=== PATIENT | male | born 1985 | race Hispanic/Latino ===

== ENCOUNTER 2019-02-24 17:05 | Inpatient (IN) | payer OTHER ==
[~2019-02-24] VITALS: Ht 180.3 cm; Wt 84.9 kg
[2019-02-24] MEDS ORDERED: POLYCARBOPHIL PO (17:15)
[2019-02-24] MEDS ORDERED: OMEP-218 PO (17:15)
[2019-02-24] MEDS ORDERED: SULF1TAB30 PO (17:15)
[2019-02-24] MEDS ORDERED: ONDANSETRON 4MG/2ML VIAL (J2405) IV ONE (17:30)
[2019-02-24] MEDS ORDERED: NS 1,000 ML IV ONE (17:30)
[2019-02-24] MEDS ORDERED: ACETAMINOPHEN 325 MG TAB PO ONE (17:30)
[2019-02-24] MEDS ORDERED: DICYCLOMINE 10 MG CAP PO ONE (17:30)
[2019-02-24 19:24] LABS: BASO % 0.3 % (0.0-1.0); EOS # 0.3 10^3/uL (0.0-0.50); EOS % 5.1 % (0.0-3.0); HEMATOCRIT 34.4 % (42.0-52.0); HEMOGLOBIN 10.9 g/dl (13.5-17.5); LYMPH # 0.8 10^3/uL (1.5-4.5); LYMPH % 13.4 % (24.0-44.0); MEAN CORPUSCULAR HEMOGLOBIN 29.9 pg (27.0-33.0); MEAN CORPUSCULAR HGB CONC 31.7 g/dl (32.0-36.5); MEAN CORPUSCULAR VOLUME 94.2 fl (80.0-96.0); MONO % 16.2 % (0.0-5.0); NEUTROPHILS # 3.9 10^3/uL (1.8-7.7); NEUTROPHILS % 64.5 % (36.0-66.0); PLATELET COUNT, AUTOMATED 325 10^3/uL (150-450); RED BLOOD COUNT 3.65 10^6/uL (4.30-6.10); WHITE BLOOD COUNT 6.1 10^3/uL (4.0-10.0)
[2019-02-24 19:39] LABS: INR 1.06; PROTHROMBIN TIME 13.9 SECONDS (12.1-14.4)
[2019-02-24 19:40] LABS: PARTIAL THROMBOPLASTIN TIME 30.8 SECONDS (25.4-37.6)
[2019-02-24 19:43] LABS: ALBUMIN 2.5 GM/DL (3.2-5.2); BILIRUBIN,DIRECT 0.2 MG/DL (0.0-0.2); BILIRUBIN,TOTAL 0.4 MG/DL (0.2-1.0); TOTAL PROTEIN 5.3 GM/DL (6.4-8.2)
[2019-02-24] MEDS ORDERED: ISOVUE-370 76% 100ML VIAL (Q9967) As Ordered ONE (19:56)
--- NOTE | 2019-02-24 22:02 | REPVR ---
EXAM: CT Abdomen and Pelvis With Contrast EXAM DATE/TIME: 02/24/2019 8:26 PM CLINICAL HISTORY: 33 years old, male; Abdominal pain; Localized; Right; Additional info: Right flank pain, HX crohns, diarrhea/vomiting TECHNIQUE: Imaging protocol: Axial computed tomography images of the abdomen and pelvis with intravenous contrast. Coronal and sagittal reformatted images were created and reviewed. Radiation optimization: All CT scans at this facility use at least one of these dose optimization techniques: automated exposure control; mA and/or kV adjustment per patient size (includes targeted exams where dose is matched to clinical indication); or iterative reconstruction. Contrast material: ISOVUE 370; Contrast volume: 100 ml; Contrast route: IV; COMPARISON: No relevant prior studies available. FINDINGS: Lungs: Mild dependent atelectatic change at the lung bases. ABDOMEN: Liver: Diffuse hepatic steatosis. Gallbladder and bile ducts: Status post cholecystectomy. No biliary ductal dilatation. Pancreas: Unremarkable. Spleen: Unremarkable. Adrenals: Unremarkable. Kidneys and ureters: No mass. No radiodense calculi. No hydronephrosis. Stomach and bowel: Moderately long segment of distal ileal wall thickening with associated mural and mesenteric edema. Multiple moderately dilated, somewhat thickened loops of small bowel with associated air-fluid levels just proximal to the inflamed segment of distal ileum. Appendix: Normal. PELVIS: Bladder: Unremarkable. Reproductive: Unremarkable. ABDOMEN and PELVIS: Intraperitoneal space: Approximately 2.3 x 1.9 cm loculated air fluid collection with surrounding inflammatory change in the left mid abdominal mesentery, adjacent to the inflamed segment of distal ileum, compatible with abscess versus localized, walled off perforation. No haily free intraperitoneal air. Bones/joints: No acute osseous abnormality. Minimal degenerative change. Soft tissues: Unremarkable. Vasculature: Unremarkable. No aneurysm. Lymph nodes: Mild mesenteric lymphadenopathy, likely reactive. IMPRESSION: 1. Findings compatible with partial versus early small bowel obstruction, secondary to underlying enteritis, as described above. Query Crohn's exacerbation. 2. Approximately 2.3 x 1.9 cm loculated air fluid collection with surrounding inflammatory change in the left mid abdominal mesentery, adjacent to the inflamed segment of distal ileum, compatible with abscess versus localized, walled off perforation. 3. Mild mesenteric lymphadenopathy, likely reactive. 4. Additional findings, as above. Electronically signed by: Tre Chairez On 02/24/2019 22:01:38 PM
[2019-02-24] MEDS ORDERED: FIBE625T PO (23:28)
[2019-02-24] MEDS ORDERED: OMEP20CA3 PO (23:28)
[2019-02-24] MEDS ORDERED: SULF500T2 PO (23:28)
[2019-02-24] MEDS ORDERED: metroNIDAZOLE 500 MG in APPROPRIATE DILUENT 1 EA IV ONE (23:45)
[2019-02-24] MEDS ORDERED: CIPROFLOXACIN 400 MG in APPROPRIATE DILUENT 1 EA IV ONE (23:45)
[2019-02-24] MEDS: NS 1,000 ML IV SCH (23:50)
[2019-02-25] MEDS: NS 1,000 ML IV SCH ×3 (03:38→14:00)
--- NOTE | 2019-02-25 04:23 | HPEPDOC ---
[facility] Medical History & Physical Date of Admission Feb 25, 2019 Date of Service: Feb 25, 2019 History and Physical CHIEF COMPLAINT: abdominal pain, diarrhea HISTORY OF PRESENT ILLNESS: Pt is 33 y/o M with Hx of Crohn's disease diagnosed in 2014 by colonoscopy and biopsy as per pt, presented to ED due to one day history of worsening abdominal pain and bloody diarrhea. Pt had x10 BM since yesterday , occasionally stool mixed with blood, small amount, blood occult was positive in ED. Also nausea and vomiting. Pt reports chronic abdominal pain for months now however yesterday it exacerbated in periumbilical area. Upon my encounter he is AAOx3, not in acute distress, denies any fever or malaise. Pt is not following GI specialist since he is incarcerated. ED Course: VS and Lab WNL. Pt accompanied by police officers. He underwent abdomen/pelvis CT which revealed SBO with intra-abdominal mesentery abscess versus walled off perforation. ED PA consulted general surgery service who recommended admission to medicine for conservative management. Surgery will reevaluate in AM. PAST MEDICAL HISTORY: as above PAST SURGICAL HISTORY: s/p cholecystectomy SOCIAL HISTORY: Pt is incarcerated for two years now, denies smoking ETOH drugs. FAMILY HISTORY: no IBD in family ALLERGIES: Please see below. REVIEW OF SYSTEMS: 10 point negative except as in HPI HOME MEDICATIONS: Please see below. PHYSICAL EXAMINATION: GENERAL APPEARANCE: pt is awake and alert mild distress due to abdominal pain HEENT: no trauma no erythema CARDIOVASCULAR: S1 S2 no murmur LUNGS: clear bilat ABDOMEN: soft periumbilical tenderness, scar of cholecystectomy EXTREMITIES: no edema no tenderness NEUROLOGICAL: intact PSYCHIATRIC: mood affect normal LABORATORY DATA: See below. IMAGING: IMPRESSION: 1. Findings compatible with partial versus early small bowel obstruction, secondary to underlying enteritis, as described above. Query Crohn's exacerbation. 2. Approximately 2.3 x 1.9 cm loculated air fluid collection with surrounding inflammatory change in the left mid abdominal mesentery, adjacent to the inflamed segment of distal ileum, compatible with abscess versus localized, walled off perforation. 3. Mild mesenteric lymphadenopathy, likely reactive. 4. Additional findings, as above. MICROBIOLOGY: Please see below. A/P 1-Intraabdominal Abscess 2-Partial SBO 3-Hx of IBD /Crohn's disease with acute flare up Admit to regular floor IVF NS resuscitation NPO in view of possible intervention General surgery evaluated in the ED, conservative management for now Ciprofloxacin 400 mg BID Flagyl 500mg q8hr supplement electrolytes close clinical monitoring for worsening abdominal pain/lower GI bleeding Consider GI consult in AM Vital Signs Vital Signs Date Time Temp Pulse Resp B/P (MAP) Pulse Ox O2 Delivery O2 Flow Rate FiO2 02/25/19 01:55 98.2 68 18 110/58 (75) 99 02/24/19 23:10 Room Air Laboratory Data Labs 24H Laboratory Tests 2 02/24/19 18:55: Urine Color YELLOW, Urine Appearance CLEAR, Urine pH 5.0, Urine Specific Nora >1.060H, Urine Protein NEGATIVE, Urine Glucose (UA) NEGATIVE, Urine Ketones 1+H, Urine Blood NEGATIVE, Urine Nitrite NEGATIVE, Urine Bilirubin NEGATIVE, Urine Urobilinogen 4.0H, Urine Leukocyte Esterase NEGATIVE, Urine WBC (Auto) 0, Urine RBC (Auto) 3, Urine Hyaline Casts (Auto) 0, Urine Bacteria (Auto) NEGATIVE, Urine Squamous Epithelial Cells 0, Urine Mucus (Auto) SMALL, Urine Sperm (Auto) 02/24/19 18:56: Immature Granulocyte % (Auto) 0.5, White Blood Count 6.1, Red Blood Count 3.65L, Hemoglobin 10.9L, Hematocrit 34.4L, Mean Corpuscular Volume 94.2, Mean Corpuscular Hemoglobin 29.9, Mean Corpuscular Hemoglobin Concent 31.7L, Red Cell Distribution Width 14.2, Platelet Count 325, Neutrophils (%) (Auto) 64.5, Lymphocytes (%) (Auto) 13.4L, Monocytes (%) (Auto) 16.2H, Eosinophils (%) (Auto) 5.1H, Basophils (%) (Auto) 0.3, Neutrophils # (Auto) 3.9, Lymphocytes # (Auto) 0.8L, Monocytes # (Auto) 1.0H, Eosinophils # (Auto) 0.3, Basophils # (Auto) 0.0, Nucleated Red Blood Cells % (auto) 0.0, Prothrombin Time 13.9, Prothromb Time International Ratio 1.06, Activated Partial Thromboplast Time 30.8, Aspartate Amino Transf (AST/SGOT) 23, Alanine Aminotransferase (ALT/SGPT) 29, Alkaline Phosphatase 46, Total Bilirubin 0.4, Direct Bilirubin 0.2, Total Protein 5.3L, Albumin 2.5L, Albumin/Globulin Ratio 0.89L, Lipase 76 02/24/19 19:54: POC Glucose (Misc Panel) 86, POC Sodium (Misc Panel) 138, POC Potassium (Misc Panel) 3.6, POC Chloride (Misc Panel) 106, POC Total CO2 (Misc Panel) 24.0, POC Blood Urea Nitrogen (Misc Panel 10, POC Ionized Calcium (Misc Panel) 4.0L, POC Creatinine (Misc Panel) 0.8, POC Hematocrit (Misc Panel) 31.0L CBC/BMP Laboratory Tests 02/24/19 18:56 Red Blood Count 3.65 L, Mean Corpuscular Volume 94.2, Mean Corpuscular Hemoglobin 29.9, Mean Corpuscular Hemoglobin Concent 31.7 L, Red Cell Distribution Width 14.2, Neutrophils (%) (Auto) 64.5, Lymphocytes (%) (Auto) 13.4 L, Monocytes (%) (Auto) 16.2 H, Eosinophils (%) (Auto) 5.1 H, Basophils (%) (Auto) 0.3, Neutrophils # (Auto) 3.9, Lymphocytes # (Auto) 0.8 L, Monocytes # (Auto) 1.0 H, Eosinophils # (Auto) 0.3, Basophils # (Auto) 0.0 Home Medications Scheduled Calcium Polycarbophil (Fibercon) 625 Mg Tablet, 625 MG PO BID Omeprazole (Omeprazole) 20 Mg Capsule.dr, 20 MG PO BID Sulfasalazine (Sulfasalazine) 500 Mg Tablet, 500 MG PO BID Allergies Coded Allergies: No Known Allergies (Unverified , 02/24/19) A-FIB/CHADSVASC A-FIB History Current/History of A-Fib/PAF?: No CHANDU GREENWOOD MD Feb 25, 2019 04:23
[2019-02-25] MEDS ORDERED: NS 1,000 ML IV SCH (04:25)
[2019-02-25] MEDS: KETOROLAC 30 MG/ML VIAL (J1885) IV PRN ×3 (06:25→21:33)
[2019-02-25] MEDS: FAMOTIDINE IV BAG 20 MG in APPROPRIATE DILUENT 1 EA IV SCH ×2 (07:32→18:43)
[2019-02-25 07:36] LABS: BASO % 0.5 % (0.0-1.0); EOS # 0.2 10^3/uL (0.0-0.50); EOS % 6.1 % (0.0-3.0); HEMATOCRIT 30.5 % (42.0-52.0); HEMOGLOBIN 9.6 g/dl (13.5-17.5); LYMPH # 0.6 10^3/uL (1.5-4.5); LYMPH % 17.1 % (24.0-44.0); MEAN CORPUSCULAR HEMOGLOBIN 29.6 pg (27.0-33.0); MEAN CORPUSCULAR HGB CONC 31.5 g/dl (32.0-36.5); MEAN CORPUSCULAR VOLUME 94.1 fl (80.0-96.0); MONO # 0.6 10^3/uL (0.0-0.8); MONO % 17.1 % (0.0-5.0); NEUTROPHILS # 2.2 10^3/uL (1.8-7.7); NEUTROPHILS % 58.4 % (36.0-66.0); PLATELET COUNT, AUTOMATED 283 10^3/uL (150-450); RED BLOOD COUNT 3.24 10^6/uL (4.30-6.10); WHITE BLOOD COUNT 3.8 10^3/uL (4.0-10.0)
[2019-02-25 07:57] LABS: ALT/SGPT 21 U/L (12-78); BILIRUBIN,TOTAL 0.4 MG/DL (0.2-1.0); BLOOD UREA NITROGEN 9 MG/DL (7-18); CALCIUM LEVEL 7.2 MG/DL (8.5-10.1); CARBON DIOXIDE LEVEL 25 MEQ/L (21-32); CHLORIDE LEVEL 114 MEQ/L (98-107); CREATININE FOR GFR 0.66 MG/DL (0.70-1.30); GLOMERULAR FILTRATION RATE > 60.0 (>60); GLUCOSE, FASTING 91 MG/DL (70-100); POTASSIUM SERUM 3.3 MEQ/L (3.5-5.1); SODIUM LEVEL 143 MEQ/L (136-145); TOTAL PROTEIN 4.8 GM/DL (6.4-8.2)
[2019-02-25] MEDS ORDERED: KCL 10MEQ/100ML SWI (KRUN) 10 MEQ in APPROPRIATE DILUENT 1 EA IV ONE (09:00)
[2019-02-25] MEDS: predniSONE 20 MG TAB PO SCH (09:36)
[2019-02-25] MEDS: CIPROFLOXACIN 400 MG in APPROPRIATE DILUENT 1 EA IV SCH ×2 (12:09→23:56)
[2019-02-25 14:00] VITALS: BP 104/65
[2019-02-25] MEDS: metroNIDAZOLE 500 MG in APPROPRIATE DILUENT 1 EA IV SCH ×2 (14:00→21:32)
[2019-02-25 15:15] VITALS: BP 106/66
--- NOTE | 2019-02-25 18:06 | IPNPDOC ---
Text Note Date of Service The patient was seen on 02/25/19. NOTE Mr. Estevez is seen in the ED this morning on bedside rounds. He states he is d oing well, his abdomen pain is improved. He has questions about medications for his Crohns disease, especially after discharge. He denies CP, sob or palpitations. He wants to eat, he is hungry. ROS: 12 point ROS reviewed and negative except for positive above pertinent findings PE: Vitals: See below GENERAL: AAOx3, pleasant 33 yo male laying in bed, his body guards are at bedside as he is an inmate, he is in NAD, speaking in full sentences HEENT:moist mucus membranes, EOMI, nares patent b/l CARDIOVASCULAR: normal s1 and s2, no murmurs, rubs or gallops appreciated LUNGS: cta b/l, no wheezing, rales or rhonchi appreciated ABDOMEN: nabsx4, soft, nontender, no distension, no hepatosplenomegaly, no masses appreciated, no rebound ridgity or guarding appreciated EXTREMITIES: no edema, cyanosis or mottling appreciated LABORATORY DATA: See below. IMAGING: IMPRESSION: 1. Findings compatible with partial versus early small bowel obstruction, secondary to underlying enteritis, as described above. Query Crohn's exacerbation. 2. Approximately 2.3 x 1.9 cm loculated air fluid collection with surrounding inflammatory change in the left mid abdominal mesentery, adjacent to the inflamed segment of distal ileum, compatible with abscess versus localized, walled off perforation. 3. Mild mesenteric lymphadenopathy, likely reactive. 4. Additional findings, as above. MICROBIOLOGY: Please see below. Plan: 1-Abdominal pain secondary to intraabdominal abscess, partial SBO/acute on chronic chrons flare up -we have consulted general surgery, appreciate their help, conservative management for now, C/w IVF and ciprofloxacin and flagyl, clear liquids diet starting today, we will see how he does with this, he was getting hungry when he was seen on exam today, have also begun steroids for acute Crohns flare up, -he will need GI follow up, likely can be done as an outpatient -Toradol for pain -GI panel negative 2. Low Potassium -Have supplemented today, BMP for AM 3. DVT px -scd/teds VS,Fishbone, I+O VS, Fishbone, I+O Laboratory Tests 02/24/19 18:56 Red Blood Count 3.65 L, Mean Corpuscular Volume 94.2, Mean Corpuscular Hemoglobin 29.9, Mean Corpuscular Hemoglobin Concent 31.7 L, Red Cell Distribution Width 14.2, Neutrophils (%) (Auto) 64.5, Lymphocytes (%) (Auto) 13.4 L, Monocytes (%) (Auto) 16.2 H, Eosinophils (%) (Auto) 5.1 H, Basophils (%) (Auto) 0.3, Neutrophils # (Auto) 3.9, Lymphocytes # (Auto) 0.8 L, Monocytes # (Auto) 1.0 H, Eosinophils # (Auto) 0.3, Basophils # (Auto) 0.0 02/25/19 07:12 Red Blood Count 3.24 L, Mean Corpuscular Volume 94.1, Mean Corpuscular Hemoglobin 29.6, Mean Corpuscular Hemoglobin Concent 31.5 L, Red Cell Distribution Width 14.1, Neutrophils (%) (Auto) 58.4, Lymphocytes (%) (Auto) 17.1 L, Monocytes (%) (Auto) 17.1 H, Eosinophils (%) (Auto) 6.1 H, Basophils (%) (Auto) 0.5, Neutrophils # (Auto) 2.2, Lymphocytes # (Auto) 0.6 L, Monocytes # (Auto) 0.6, Eosinophils # (Auto) 0.2, Basophils # (Auto) 0.0, Calcium Level 7.2 L, Aspartate Amino Transf (AST/SGOT) 23, Alanine Aminotransferase (ALT/SGPT) 21, Alkaline Phosphatase 38 L, Total Bilirubin 0.4, Total Protein 4.8 L, Albumin 2.0 L Vital Signs Date Time Temp Pulse Resp B/P (MAP) Pulse Ox O2 Delivery O2 Flow Rate FiO2 02/25/19 15:15 97.1 69 14 106/66 (79) 100 02/25/19 06:28 Room Air I&O- Last 24 Hours up to 6 AM 02/25/19 06:00 Intake Total 2000 ml Balance 2000 ml GME ATTESTATION GME ATTESTATION My faculty preceptor for this patient encounter was physically present during the encounter and was fully available. All aspects of the patient interview, examination, medical decision making process, and medical care plan development were reviewed and approved by the faculty preceptor. The faculty preceptor is aware and concurs with the plan as stated in the body of this note and will attest to such by his/her cosignature. ATTENDING NOTE I, Sung Alejandre, have both independently examined this patient as well as reviewed the documentation. I have discussed in detail with the resident the findings and plan of treatment as documented in the residents documentation and I agree with what is stated. I will continue to follow the patient and offer further guidance to the patients care as necessary during this hospital stay. DARLENE PADILLA DO Feb 25, 2019 18:06 SUNG ALEJANDRE MD Feb 25, 2019 20:53
[2019-02-25 22:00] VITALS: BP 106/60
[2019-02-26] MEDS: NS 1,000 ML IV SCH (01:46)
[2019-02-26] MEDS: metroNIDAZOLE 500 MG in APPROPRIATE DILUENT 1 EA IV SCH (05:08)
[2019-02-26 06:00] VITALS: BP 90/52
[2019-02-26] MEDS: FAMOTIDINE IV BAG 20 MG in APPROPRIATE DILUENT 1 EA IV SCH (06:32)
[2019-02-26 06:44] LABS: BASO % 0.6 % (0.0-1.0); EOS # 0.1 10^3/uL (0.0-0.50); EOS % 2.4 % (0.0-3.0); HEMATOCRIT 30.8 % (42.0-52.0); HEMOGLOBIN 9.7 g/dl (13.5-17.5); LYMPH # 0.6 10^3/uL (1.5-4.5); LYMPH % 10.6 % (24.0-44.0); MEAN CORPUSCULAR HEMOGLOBIN 29.3 pg (27.0-33.0); MEAN CORPUSCULAR HGB CONC 31.5 g/dl (32.0-36.5); MEAN CORPUSCULAR VOLUME 93.1 fl (80.0-96.0); MONO # 0.9 10^3/uL (0.0-0.8); MONO % 15.6 % (0.0-5.0); NEUTROPHILS # 3.8 10^3/uL (1.8-7.7); NEUTROPHILS % 70.2 % (36.0-66.0); PLATELET COUNT, AUTOMATED 327 10^3/uL (150-450); RED BLOOD COUNT 3.31 10^6/uL (4.30-6.10); WHITE BLOOD COUNT 5.5 10^3/uL (4.0-10.0)
[2019-02-26 07:06] LABS: BLOOD UREA NITROGEN 2 MG/DL (7-18); CALCIUM LEVEL 7.4 MG/DL (8.5-10.1); CARBON DIOXIDE LEVEL 23 MEQ/L (21-32); CHLORIDE LEVEL 115 MEQ/L (98-107); CREATININE FOR GFR 0.75 MG/DL (0.70-1.30); GLOMERULAR FILTRATION RATE > 60.0 (>60); GLUCOSE, FASTING 123 MG/DL (70-100); MAGNESIUM LEVEL 1.8 MG/DL (1.8-2.4); POTASSIUM SERUM 3.3 MEQ/L (3.5-5.1); SODIUM LEVEL 144 MEQ/L (136-145)
[2019-02-26] MEDS ORDERED: POTASSIUM CHLORIDE 10 MEQ SR TABLET PO ONE (08:00)
[2019-02-26] MEDS ORDERED: KCL 40MEQ in NS 1000ML 1,000 ML IV SCH (08:00)
[2019-02-26 08:06] LABS: C REACTIVE PROTEIN QUANTITATIV 0.92 MG/DL (0.00-0.30)
[2019-02-26] MEDS: predniSONE 20 MG TAB PO SCH (08:08)
[2019-02-26 08:17] LABS: C REACTIVE PROTEIN QUANTITATIV 2.59 MG/DL (0.00-0.30)
--- NOTE | 2019-02-26 08:55 | IPNPDOC ---
Text Note Date of Service The patient was seen on 02/26/19. NOTE No acute events overnight. He has had 2 BMs without any blood. Denies nausea, emesis, fevers, or pains. I looked at his CT with radiology, and there is nothing that they can reach to drain. VSSAF NAD abd - soft, no guarding or rigidity, non tender labs - below A) 34y/o male with crohns exacerbation with a contained abscess P) reg diet ambulate taper steroids discuss crohns meds with GI prior to dc ok to dc today Diallo Castro DO VS,Fishbone, I+O VS, Fishbone, I+O Laboratory Tests 02/26/19 06:08 Red Blood Count 3.31 L, Mean Corpuscular Volume 93.1, Mean Corpuscular Hemoglobin 29.3, Mean Corpuscular Hemoglobin Concent 31.5 L, Red Cell Distribution Width 14.2, Neutrophils (%) (Auto) 70.2 H, Lymphocytes (%) (Auto) 10.6 L, Monocytes (%) (Auto) 15.6 H, Eosinophils (%) (Auto) 2.4, Basophils (%) (Auto) 0.6, Neutrophils # (Auto) 3.8, Lymphocytes # (Auto) 0.6 L, Monocytes # (Auto) 0.9 H, Eosinophils # (Auto) 0.1, Basophils # (Auto) 0.0, Calcium Level 7.4 L Vital Signs Date Time Temp Pulse Resp B/P (MAP) Pulse Ox O2 Delivery O2 Flow Rate FiO2 02/26/19 06:00 97.2 70 17 90/52 (65) 97 02/25/19 06:28 Room Air I&O- Last 24 Hours up to 6 AM 02/26/19 06:00 Intake Total 5410 ml Output Total 800 ml Balance 4610 ml JORGE CASTRO DO Feb 26, 2019 08:55
[2019-02-26] MEDS ORDERED: MAG SULF 1GM/100ML (MAG RUN) 1 GM in APPROPRIATE DILUENT 1 EA IV ONE (09:00)
[2019-02-26] MEDS ORDERED: ENOXAPARIN 30 MG/0.3 ML SYR (J1650) SC SCH (09:00)
[2019-02-26] MEDS ORDERED: POTASSIUM CHLORIDE INJ 40 MEQ in NS 1,000 ML IV SCH (09:00)
[2019-02-26] MEDS ORDERED: ENOXAPARIN 40 MG/0.4 ML SYRINGE (J1650) SC SCH (09:00)
[2019-02-26] MEDS: KETOROLAC 30 MG/ML VIAL (J1885) IV PRN (10:33)
[2019-02-26 10:46] LABS: HEPATITIS B SURFACE ANTIGEN NEGATIVE (NEGATIVE)
[2019-02-26 10:49] LABS: HEPATITIS C VIRUS ABY INDEX > 11.0 INDEX (<0.8)
[2019-02-26] MEDS ORDERED: METR-265 PO (11:02)
[2019-02-26] MEDS ORDERED: CIPR250T3 PO (11:02)
[2019-02-26] MEDS ORDERED: PRED10TA2 PO (11:02)
--- NOTE | 2019-02-26 12:31 | DS.PDOC ---
Discharge Summary General Date of Admission Feb 25, 2019 at 04:25 Date of Discharge 02/26/19 Discharge Summary PROCEDURES PERFORMED DURING STAY: None ADMITTING DIAGNOSES: 1. Intraabdominal fluid collection, with possibility of abscess 2. Possble Partial SBO 3. Hx of IBD /Crohn's disease with acute flare up DISCHARGE DIAGNOSES: 1. Abdominal pain secondary to intraabdominal abscess, partial SBO/acute on chronic chrons flare up 2. Low Potassium 3. DVT px COMPLICATIONS/CHIEF COMPLAINT: Intra Abdominal Abscess. HISTORY OF PRESENT ILLNESS: Per HPI "" Pt is 33 y/o M with Hx of Crohn's disease diagnosed in 2014 by colonoscopy and biopsy as per pt, presented to ED due to one day history of worsening a bdominal pain and bloody diarrhea. Pt had x10 BM since yesterday , occasionally stool mixed with blood, small amount, blood occult was positive in ED. Also nausea and vomiting. Pt reports chronic abdominal pain for months now however yesterday it exacerbated in periumbilical area. Upon my encounter he is AAOx3, not in acute distress, denies any fever or malaise. Pt is not following GI specialist since he is incarcerated. """ HOSPITAL COURSE: During the course of the patients hospital stay he was treated conservatively with IVF, ciprofloxacin and Flagyl, he was also initiated on steroid therapy. His diet was slowly advanced which he tolerated well. It was discussed with patient that he should have follow up with GI outpatient to begin Crohns medications such as Imuran, and that he will be discharged on prednisone taper. He did state he was Hep C positive, he unfortunately was diagnosed 9 years ago and has not been treated recently due to being incarcerated, he states that he received about two months of treatment a few years back but then stopped due to being arrested and jailed. He was seen and evaluated by general surgery, who recommended conservative management in house, the fluid collection intra- abdominally was unable to be accessed percutaneously by IR. DISCHARGE MEDICATIONS: Please see below. ALLERGIES: Please see below. PHYSICAL EXAMINATION ON DISCHARGE: Vitals: See below GENERAL: AAOx3, pleasant 33 yo male sitting up in bed eating jello, his body guards are at bedside again this morning as he is an inmate, he is in NAD, speaking in full sentences HEENT:moist mucus membranes, EOMI, nares patent b/l CARDIOVASCULAR: normal s1 and s2, no murmurs, rubs or gallops appreciated LUNGS: cta b/l, no wheezing, rales or rhonchi appreciated ABDOMEN: nabsx4, soft, no tenderness appreciated, no distension, no hepatosplenomegaly, no masses appreciated, no rebound ridgity or guarding appreciated EXTREMITIES: no edema, cyanosis or mottling appreciated LABORATORY DATA: Please see below. IMAGING: CT abdomen/pelvis 02/24/19 IMPRESSION: 1. Findings compatible with partial versus early small bowel obstruction, secondary to underlying enteritis, as described above. Query Crohn's exacerbation. 2. Approximately 2.3 x 1.9 cm loculated air fluid collection with surrounding inflammatory change in the left mid abdominal mesentery, adjacent to the inflamed segment of distal ileum, compatible with abscess versus localized, walled off perforation. 3. Mild mesenteric lymphadenopathy, likely reactive. 4. Additional findings, as above. PROGNOSIS: stable , favorable ACTIVITY: As tolerated DIET: as tolerated DISCHARGE PLAN: Back to [facility] DISPOSITION: stable DISCHARGE INSTRUCTIONS: 1. Please follow up with Infectious Disease for Hep C treatment, please follow up with GI for treatment of Crohns. ITEMS TO FOLLOWUP ON ON OUTPATIENT: 1. GI and Infectious disease appts. 2. Remain compliant with treatment plan and medications 3. Return to the [facility] if you experience any problems DISCHARGE CONDITION: Stable TIME SPENT ON DISCHARGE: 35 minutes. Vital Signs/I&Os Vital Signs Date Time Temp Pulse Resp B/P (MAP) Pulse Ox O2 Delivery O2 Flow Rate FiO2 02/26/19 06:00 97.2 70 17 90/52 (65) 97 02/25/19 06:28 Room Air I&O- Last 24 Hours up to 6 AM 02/26/19 06:00 Intake Total 5410 ml Output Total 800 ml Balance 4610 ml Laboratory Data Labs 24H Laboratory Tests 2 02/26/19 06:08: Immature Granulocyte % (Auto) 0.6, White Blood Count 5.5, Red Blood Count 3.31L, Hemoglobin 9.7L, Hematocrit 30.8L, Mean Corpuscular Volume 93.1, Mean Corpuscular Hemoglobin 29.3, Mean Corpuscular Hemoglobin Concent 31.5L, Red Cell Distribution Width 14.2, Platelet Count 327, Neutrophils (%) (Auto) 70.2H, Lymphocytes (%) (Auto) 10.6L, Monocytes (%) (Auto) 15.6H, Eosinophils (%) (Auto) 2.4, Basophils (%) (Auto) 0.6, Neutrophils # (Auto) 3.8, Lymphocytes # (Auto) 0.6L, Monocytes # (Auto) 0.9H, Eosinophils # (Auto) 0.1, Basophils # (Auto) 0.0, Nucleated Red Blood Cells % (auto) 0.0, Anion Gap 6L, Glomerular Filtration Rate > 60.0, Blood Urea Nitrogen 2#L, Creatinine 0.75, Sodium Level 144, Potassium Level 3.3L, Chloride Level 115H, Carbon Dioxide Level 23, Calcium Level 7.4L, Magnesium Level 1.8, C-Reactive Protein, Quantitative 0.92H, Hepatitis B Surface Antigen NEGATIVE, Hepatitis C Antibody Index > 11.0H CBC/BMP Laboratory Tests 02/26/19 06:08 Red Blood Count 3.31 L, Mean Corpuscular Volume 93.1, Mean Corpuscular Hemoglobin 29.3, Mean Corpuscular Hemoglobin Concent 31.5 L, Red Cell Distribution Width 14.2, Neutrophils (%) (Auto) 70.2 H, Lymphocytes (%) (Auto) 10.6 L, Monocytes (%) (Auto) 15.6 H, Eosinophils (%) (Auto) 2.4, Basophils (%) (Auto) 0.6, Neutrophils # (Auto) 3.8, Lymphocytes # (Auto) 0.6 L, Monocytes # (Auto) 0.9 H, Eosinophils # (Auto) 0.1, Basophils # (Auto) 0.0, Calcium Level 7.4 L Microbiology Microbiology 02/25/19 Gastrointestinal Tract Panel (PCR) - Final, Complete Discharge Medications Scheduled Calcium Polycarbophil (Fibercon) 625 Mg Tablet, 625 MG PO BID, (Reported) Ciprofloxacin HCl (Ciprofloxacin HCl) 250 Mg Tablet, 1 TAB PO BID Metronidazole (Metronidazole) 500 Mg Tablet, 500 MG PO BID Omeprazole (Omeprazole) 20 Mg Capsule.dr, 20 MG PO BID, (Reported) Prednisone (Prednisone) 10 Mg Tablet, 10 MG PO TAPER Take 4 tabs daily x 3 days, then 3 tabs daily x 3 days, then 2 tabs daily x 3 days, then 1 tab daily x 3 days and stop Sulfasalazine (Sulfasalazine) 500 Mg Tablet, 500 MG PO BID, (Reported) Allergies Coded Allergies: No Known Allergies (Unverified , 02/24/19) GME ATTESTATION GME ATTESTATION My faculty preceptor for this patient encounter was physically present during the encounter and was fully available. All aspects of the patient interview, examination, medical decision making process, and medical care plan development were reviewed and approved by the faculty preceptor. The faculty preceptor is aware and concurs with the plan as stated in the body of this note and will attest to such by his/her cosignature. ATTENDING NOTE I, Sung Alejandre, have independently examined this patient and performed my own physical exam, as well as reviewed the documentation and edited where necessary. I have discussed in detail with the resident / student the findings and plan of treatment as documented by the resident / student and edited their note. I agree with their findings and treatment plan and have edited their documentation. I will continue to follow the patient during this hospital stay. Time spent on discharge: - 37 minutes DARLENE PADILLA DO Feb 26, 2019 12:31 SUNG ALEJANDRE MD Feb 26, 2019 13:34
== END 2019-02-26 13:45 | DRG 245 ==
LOC: M ED 17:05 → M ED INP 02-25 04:25 → M MSPAV 02-25 15:09
PROVIDERS: ADMIT Hospitalist; ATTEND Internal Medicine
PROC: 0W9F3ZZ Drainage of Abdominal Wall, Percutaneous Approach (ICD-10-PCS; principal; 2019-02-24)
DX: K50.914 Crohn's disease, unspecified, with abscess (principal); E87.6 Hypokalemia; K50.912 Crohn's disease, unspecified, with intestinal obstruction; Z79.899 Other long term (current) drug therapy

== ENCOUNTER 2019-04-09 10:43 | Inpatient (IN) | payer OTHER ==
[~2019-04-09] VITALS: Ht 180.3 cm; Wt 77.7 kg
[~2019-04-09 10:43] MED LIST: CIPR250T3 PO; FIBE625T PO; METR-265 PO; OMEP-218 PO; OMEP20CA4 PO; POLYCARBOPHIL PO; PRED10TA2 PO; SULF1TAB30 PO; SULF500T2 PO
[2019-04-09] MEDS ORDERED: METOCLOPRAMIDE INJ 10MG/2ML VIAL (J2765) IV ONE (12:00)
[2019-04-09] MEDS ORDERED: KETOROLAC 30 MG/ML VIAL (J1885) IV ONE (12:00)
[2019-04-09] MEDS ORDERED: NS 1,000 ML IV ONE ×2 (12:00→14:30)
[2019-04-09 12:03] LABS: BASO % 0.2 % (0.0-1.0); EOS # 0.1 10^3/uL (0.0-0.50); EOS % 0.4 % (0.0-3.0); HEMATOCRIT 45.8 % (42.0-52.0); LYMPH # 0.7 10^3/uL (1.5-4.5); LYMPH % 5.2 % (24.0-44.0); MEAN CORPUSCULAR HEMOGLOBIN 28.4 pg (27.0-33.0); MEAN CORPUSCULAR HGB CONC 32.8 g/dl (32.0-36.5); MEAN CORPUSCULAR VOLUME 86.7 fl (80.0-96.0); MONO # 0.9 10^3/uL (0.0-0.8); MONO % 6.6 % (0.0-5.0); NEUTROPHILS # 11.3 10^3/uL (1.8-7.7); NEUTROPHILS % 87.2 % (36.0-66.0); PLATELET COUNT, AUTOMATED 360 10^3/uL (150-450); RED BLOOD COUNT 5.28 10^6/uL (4.30-6.10)
[2019-04-09 12:28] LABS: ALBUMIN 2.6 GM/DL (3.2-5.2); ALT/SGPT 27 U/L (12-78); BILIRUBIN,DIRECT 0.3 MG/DL (0.0-0.2); BILIRUBIN,TOTAL 0.5 MG/DL (0.2-1.0); BLOOD UREA NITROGEN 9 MG/DL (7-18); CALCIUM LEVEL 8.3 MG/DL (8.5-10.1); CARBON DIOXIDE LEVEL 24 MEQ/L (21-32); CHLORIDE LEVEL 112 MEQ/L (98-107); CREATININE FOR GFR 0.75 MG/DL (0.70-1.30); GLOMERULAR FILTRATION RATE > 60.0 (>60); GLUCOSE, FASTING 87 MG/DL (70-100); LIPASE 66 U/L (73-393); POTASSIUM SERUM 4.3 MEQ/L (3.5-5.1); SODIUM LEVEL 141 MEQ/L (136-145); TOTAL PROTEIN 5.7 GM/DL (6.4-8.2)
[2019-04-09] MEDS ORDERED: ISOVUE-370 76% 100ML VIAL (Q9967) As Ordered ONE (12:32)
--- NOTE | 2019-04-09 12:58 | REP ---
Clinical: Generalized abdominal pain. Technique: Axial contrast enhanced images from the lung bases to the pubic symphysis with coronal and sagittal re-formations using 100 ml Isovue 370 intravenous contrast material. Findings: Marked high-grade small bowel obstruction is appreciated and transition is identified with in the deep pelvis (images 110 - 87). Distal small bowel and visualized large bowel appears collapsed. Scattered mucosal thickening and enhancement to multiple segments of small bowel are also identified and these findings are suggestive of acute inflammatory bowel disease including Crohn's. No free air. Small amount of free fluid noted in the pelvis. No drainable collection or abscess identified. Mild fatty infiltration to the liver suggested. Spleen, pancreas, bilateral adrenal glands and kidneys are normal. Incidental subcentimeter right renal cyst noted. Evidence for prior cholecystectomy. No adenopathy. Pelvis demonstrates normal bladder and age appropriate prostate/seminal vesicles. Surrounding musculoskeletal structures are intact. Impression: High-grade small bowel obstruction with transition identified in the deep pelvis. Scattered segments of small bowel wall thickening and enhancement along with small amount of mesenteric stranding and free fluid. Correlation is required as differential diagnosis includes Crohn's and inflammatory bowel disease. Electronically Signed by Leif Arellano MD 04/09/2019 12:51 P
[2019-04-09 14:00] LABS: C REACTIVE PROTEIN QUANTITATIV 5.98 MG/DL (0.00-0.30)
[2019-04-09] MEDS ORDERED: methylPREDNISolone INJ 125 MG/2 ML VIAL (J2930) IV ONE (14:30)
[2019-04-09] MEDS ORDERED: PIPERACILLIN/TAZOBACTAM SOD 3.375 GM in D5W MINI-BAG PLUS 50 ML IV ONE (14:30)
[2019-04-09 14:51] LABS: ERYTHROCYTE SEDIMENTATION RATE 5 mm/hr (0-15)
[2019-04-09] MEDS ORDERED: OMEP-221 PO (15:03)
[2019-04-09] MEDS ORDERED: SULF500T2 PO (15:03)
[2019-04-09] MEDS ORDERED: IBUP1TAB6 PO (15:03)
[2019-04-09] MEDS ORDERED: [UNRECOGNIZED DRUG - CODE] PO (15:03)
[2019-04-09] MEDS ORDERED: FIBE625T PO (15:03)
[2019-04-09] MEDS ORDERED: MORPHINE 4 MG/ML 1ML VIAL/SYRINGE (J2270) IV PRN (15:15)
[2019-04-09] MEDS: D5W/0.45% SODIUM CHLORIDE 1,000 ML IV SCH (17:32)
--- NOTE | 2019-04-09 17:39 | CR ---
DATE OF CONSULTATION: 04/09/2019 STATUS OF THE PATIENT: Inpatient. CONSULTATION REPORT FOR: Hospitalist service and general surgery. REASON FOR CONSULTATION: Small bowel obstruction, Crohn's disease. HISTORY OF PRESENT ILLNESS: This is a 33-year-old male with a reported history of Crohn disease of the small bowel that was reportedly diagnosed in 2014 at [place] in [facility]. He was at that time treated with steroids and somehow was lost to followup. He also had incarcerations which took him out of the medical system on some occasions. However, he tells me that since that colonoscopy in 2014, he has never really had any significant major problems until 2019 when in February last month, he presented to [facility] with a phlegmon intra-abdominal abscess in the terminal ileum area. He was treated with steroids. He did improve somewhat and was discharged. As noted above, the patient is incarcerated and has not had any followup with gastroenterology (GI). For the past 2-3 days, the patient is having worsening abdominal pain. This time also with nausea, profuse vomiting, and some bloody diarrhea. He was brought back to the emergency room where a repeat CT scan now shows a high-grade small bowel obstruction in the ileum area and some inflammatory changes suggestive of Crohn's disease. PAST MEDICAL HISTORY: Reported Crohn's disease diagnosed by colonoscopy at [facility] in [facility] in 2014. PAST SURGICAL HISTORY: Cholecystectomy 2014 and colonoscopy 2013 or 2014. SOCIAL HISTORY: Negative for tobacco. Negative for alcohol. The patient is incarcerated. FAMILY HISTORY: Negative for inflammatory bowel disease, colorectal carcinoma or any known gastrointestinal (GI) history. ALLERGIES: No known drug allergies. MEDICATIONS: None. The patient was discharged last month on Cipro and Flagyl a 10-day course, on omeprazole, prednisone times 12 days, and sulfasalazine. PHYSICAL EXAMINATION: VITAL SIGNS: Temperature 99.0, pulse 88, respiratory rate 22, blood pressure 100/59, pulse oximetry 97% on room air. GENERAL: The patient is sedated but is arousable. He has a nasogastric (NG) tube. He is ill-appearing but is nontoxic. HEAD, EYES, EARS, NOSE AND THROAT: The NG tube is without abnormality. NECK: Supple. No lymphadenopathy or thyromegaly. CHEST: Clear bilaterally. No rhonchi or crackles. HEART: Regular rate and rhythm, S1, S2. No murmurs or gallops. ABDOMEN: Distended, positive bowel sounds, tympani throughout, tender to palpation, especially so in the right lower quadrant. I do not appreciate any masses, hepatosplenomegaly, or ascites. EXTREMITIES: Negative for edema. RECTAL EXAMINATION: Deferred as per patient. LABORATORY FINDINGS: WBC is 13.0, platelet count 360, hemoglobin 15, MCV 86.7, RDW 13.4, ESR of 5. Sodium 141, potassium 4.3, BUN 9, creatinine 0.75, total bilirubin 0.5, AST 28, ALT 27, alkaline phosphatase 121, albumin 2.6, lipase 66. IMAGING STUDIES: CT abdomen and pelvis dated 02/24/2019: Impression: 1. Findings compatible with partial versus early small bowel obstruction secondary to underlying enteritis as described above. Query Crohn's exacerbation. 2. Approximately 2.3 x 1.9 cm loculated air fluid collection with surrounding inflammatory change in the left midabdominal mesentery adjacent to the inflamed segment of the distal ileum compatible with abscess versus localized walled off perforation. 3. Mild mesenteric lymphadenopathy, likely reactive 4. Additional findings as above. CT abdomen and pelvis dated 04/09/2019 with IV contrast: Impression: 1. High-grade small bowel obstruction with transition identified in the deep pelvis, scattered segments of small bowel wall thickening and enhancement along with small amount of mesenteric stranding and free fluid. Correlation is required as the differential diagnosis includes Crohn's and inflammatory bowel disease. There is marked high-grade small bowel obstruction appreciated and a transition identified within the deep pelvis, distal small bowel and visualized large bowel appears to be collapsed, scattered mucosal thickening and enhancement to multiple segments of small bowel are also identified on these findings are suggestive of acute inflammatory bowel disease including Crohn's. No free air is seen. A small amount of free fluid in the pelvis and no drainable collection or abscess is identified. 2. There is evidence of prior cholecystectomy. ASSESSMENT: High-grade small bowel obstruction, likely related to Crohn's disease. RECOMMENDATIONS: 1. Solu-Medrol 40 mg IV every 12 hours. 2. Observation for 48 hours. 3. Surgical consultation. [facility]
[2019-04-09] MEDS: ENOXAPARIN 40 MG/0.4 ML SYRINGE (J1650) SC SCH (18:00)
--- NOTE | 2019-04-09 19:32 | CR ---
DATE OF CONSULTATION: 04/09/2019 REASON FOR CONSULTATION: Small bowel obstruction. HISTORY OF PRESENT ILLNESS: The patient is a 33-year-old male with a history of Crohn's disease initially diagnosed back 2014. He was receiving treatment prior to being incarcerated; however, he has not had any recent medical treatment for this. I saw him in the hospital a month ago with a similar bowel obstruction with an abscess related to this that improved rapidly with intravenous (IV) fluids and steroids and antibiotics. He now presents with another three day history of nausea, vomiting, some bloody diarrhea and some lower abdominal pains. The vomiting was done on purpose. He did it to relieve the pressure in his abdomen. In the emergency room (ER), he has a CT scan suggestive of a high-grade small bowel obstruction in the ileum down near the pelvis with CT findings suspicious for Crohn's disease. No signs of any abscess or perforation at this time. He denies any fevers or chills. No problems with urination. PAST MEDICAL HISTORY: Crohn's disease. PAST SURGICAL HISTORY: 1. Cholecystectomy. 2. Colonoscopies. SOCIAL HISTORY: Denies current drug, alcohol, tobacco abuse. FAMILY HISTORY: Noncontributory. ALLERGIES: None. HOME MEDICATIONS: Please see medical records. REVIEW OF SYSTEMS: Per positives in history of present illness (HPI). PHYSICAL EXAMINATION: VITAL SIGNS: Temperature 99, pulse 88, respirations 22, blood pressure 100/59, pulse oximetry 97% room air. HEENT: Pupils equal, round, react to light and accommodation. HEART: S1, S2. Regular rate and rhythm. LUNGS: Clear to auscultation bilaterally. ABDOMEN: Soft. Slightly distended. Slight tenderness to palpation in the lower abdomen. No rebounding, guarding or rigidity. No signs of any peritonitis. EXTREMITIES: No clubbing, cyanosis or edema. LABORATORY DATA White count 13, hemoglobin 15, platelets 360. Potassium 4.3, creatinine 0.75, lactic acid 0.66. IMAGING STUDIES: CT abdomen and pelvis shows high-grade small bowel obstruction with transition in the deep pelvis, scattered segments of small bowel wall thickening, enhancement along with small amount of mesenteric stranding and free fluid. Correlation is required. His differential includes Crohn's and inflammatory bowel disease. ASSESSMENT AND PLAN: The patient is a 33-year-old male with exacerbation of Crohn's resulting in distal small bowel obstruction. Recommendation is to proceed with a gastrointestinal (GI) consult and likely will need some acute steroid therapy. When he was in the hospital last time, I recommended him to followup with GI outpatient to get started on some medical management for his Crohn's. He said that he was never allowed to do anything. I recommend when he leaves the hospital this time that the nursing staff from the facility where he came from be contacted directly and get him a referral to GI some place where he can be started on some medical management to avoid this from happening again. There is no need for any surgical intervention at this time. His inflammation and Crohn's exacerbation should likely resolve with medical management. Thank you for the consult and I will be available if something changes.
[2019-04-09 20:45] VITALS: BP 122/69
[2019-04-09] MEDS: methylPREDNISolone INJ 125 MG/2 ML VIAL (J2930) IV SCH (22:53)
[2019-04-10] MEDS ORDERED: MORPHINE 4 MG/ML 1ML VIAL/SYRINGE (J2270) IV STA (00:47)
[2019-04-10] MEDS: D5W/0.45% SODIUM CHLORIDE 1,000 ML IV SCH ×2 (01:15→13:53)
[2019-04-10] MEDS: MORPHINE 4 MG/ML 1ML VIAL/SYRINGE (J2270) IV PRN ×5 (05:30→22:27)
[2019-04-10 05:46] LABS: HEMATOCRIT 39.5 % (42.0-52.0); HEMOGLOBIN 13.1 g/dl (13.5-17.5); MEAN CORPUSCULAR HEMOGLOBIN 28.7 pg (27.0-33.0); MEAN CORPUSCULAR HGB CONC 33.2 g/dl (32.0-36.5); MEAN CORPUSCULAR VOLUME 86.6 fl (80.0-96.0); PLATELET COUNT, AUTOMATED 346 10^3/uL (150-450); RED BLOOD COUNT 4.56 10^6/uL (4.30-6.10); WHITE BLOOD COUNT 14.2 10^3/uL (4.0-10.0)
[2019-04-10 06:00] VITALS: BP 116/67
[2019-04-10 06:04] LABS: ERYTHROCYTE SEDIMENTATION RATE 9 mm/hr (0-15)
[2019-04-10 06:11] LABS: BLOOD UREA NITROGEN 9 MG/DL (7-18); CARBON DIOXIDE LEVEL 24 MEQ/L (21-32); CHLORIDE LEVEL 111 MEQ/L (98-107); CREATININE FOR GFR 0.65 MG/DL (0.70-1.30); GLOMERULAR FILTRATION RATE > 60.0 (>60); GLUCOSE, FASTING 145 MG/DL (70-100); POTASSIUM SERUM 3.9 MEQ/L (3.5-5.1); SODIUM LEVEL 140 MEQ/L (136-145)
[2019-04-10] MEDS: methylPREDNISolone INJ 125 MG/2 ML VIAL (J2930) IV SCH ×3 (06:19→22:26)
--- NOTE | 2019-04-10 07:53 | HPEPDOC ---
General Date of Admission Apr 09, 2019 at 14:39 Date of Service: Apr 09, 2019 Attending Physician: MANNY PATTERSON DO Chief Complaint The patient is a 33-year-old male admitted with a reason for visit of Crohns Disease Of Small Intestine,Small Bowel Obst. Source: Patient Exam Limitations: No limitations Timing/Duration: Day(s) (3) Severity: Severe Associated Symptoms: Nausea, Other (constipation; abdomen pain) History of Present Illness 33 yo male with history of crohns brought in from snf to ED with abdomen pain. Patient states 3 days of constipation, nausea and progressively worsening abdomen pain similar to prior crohns episode in February 2019. He states no fever, no CP, no SOB. he is a succinct historian and does not offer any additional information except to request pain medications. States worse with lying supine. improved with "pain meds". Review of records show that patient suffers from chronic abdomen pain. patient denies melena or hematochezia. Home Medications Scheduled Calcium Polycarbophil (Fibercon) 625 Mg Tablet, 625 MG PO BID, (Reported) Omeprazole (Omeprazole) 40 Mg Capsule.dr, 40 MG PO DAILY, (Reported) Sulfasalazine (Sulfasalazine) 500 Mg Tablet, 500 MG PO BID, (Reported) Scheduled PRN Bismuth Subsalicylate ([place] Bismuth) 262 Mg/15 Ml Oral.susp, 30 ML PO Q6H PRN for DIARRHEA, (Reported) Ibuprofen (Ibuprofen) 600 Mg Tablet, 600 MG PO BIDP PRN for PAIN, (Reported) Allergies Coded Allergies: No Known Allergies (Unverified , 02/24/19) Past Medical History Medical History Hepatitis C - untreated/chronic (diagnosed "years" ago per patient) Crohns disease Past surgery: Cholecystectomy Social hx: incarcerated for past 2 years; no EtOH, + Tobacco 1 ppd Family history: both parent from drug related events, no family history of IBD A-FIB/CHADSVASC A-FIB History Current/History of A-Fib/PAF?: No Review of Systems Other systems 10 systems reviewed and negative except as per HPI Physical Examination General Exam: Positive: Alert, Moderate Distress Eye Exam: Positive: PERRLA, Conjunctiva & lids normal ENT Exam: Positive: Atraumatic, Mucous membr. moist/pink, Pharynx Normal Neck Exam: Positive: Supple, +2 carotid pulse wo bruit Chest Exam: Positive: Clear to auscultation, Normal air movement; Negative: Rales, Rhonchi, Wheezing Heart Exam: Positive: Rate Normal, Regular Rhythm Abdomen Exam: Positive: Other (decreased bowel sounds, RLQ tenderness, guarding but no rigidity, no rebound) Extremity Exam: Positive: Normal pulses; Negative: Clubbing, Cyanosis, Edema Skin Exam: Positive: Nl turgor and temperature Neuro Exam: Positive: Normal Speech, Strength at 5/5 X4 ext, Normal Tone, Sensation Intact Psych Exam: Positive: Mental status NL, Mood NL, Oriented x 3 Vital Signs Vital Signs Date Time Temp Pulse Resp B/P (MAP) Pulse Ox O2 Delivery O2 Flow Rate FiO2 04/09/19 14:36 99.0 88 22 100/59 (73) 97 Room Air Laboratory Data Labs 24H Laboratory Tests 2 04/09/19 11:45: Immature Granulocyte % (Auto) 0.4, White Blood Count 13.0H, Red Blood Count 5.28, Hemoglobin 15.0, Hematocrit 45.8, Mean Corpuscular Volume 86.7, Mean Corpuscular Hemoglobin 28.4, Mean Corpuscular Hemoglobin Concent 32.8, Red Cell Distribution Width 13.4, Platelet Count 360, Neutrophils (%) (Auto) 87.2H, Lymphocytes (%) (Auto) 5.2L, Monocytes (%) (Auto) 6.6H, Eosinophils (%) (Auto) 0.4, Basophils (%) (Auto) 0.2, Neutrophils # (Auto) 11.3H, Lymphocytes # (Auto) 0.7L, Monocytes # (Auto) 0.9H, Eosinophils # (Auto) 0.1, Basophils # (Auto) 0.0, Nucleated Red Blood Cells % (auto) 0.0, Erythrocyte Sedimentation Rate 5, Anion Gap 5L, Glomerular Filtration Rate > 60.0, Calcium Level 8.3L, Aspartate Amino Transf (AST/SGOT) 28, Alanine Aminotransferase (ALT/SGPT) 27, Alkaline Phosphatase 121H, Total Bilirubin 0.5, Direct Bilirubin 0.3H, C-Reactive Protein, Quantitative 5.98H, Total Protein 5.7L, Albumin 2.6L, Albumin/Globulin Ratio 0.84L, Lipase 66L 04/09/19 13:23: Urine Color YELLOW, Urine Appearance HAZY, Urine pH 5.0, Urine Specific [place] 1.055, Urine Protein NEGATIVE, Urine Glucose (UA) NEGATIVE, Urine Ketones 1+H, Urine Blood NEGATIVE, Urine Nitrite NEGATIVE, Urine Bilirubin NEGATIVE, Urine Urobilinogen 2.0H, Urine Leukocyte Esterase NEGATIVE, Urine WBC (Auto) 1, Urine RBC (Auto) 2, Urine Hyaline Casts (Auto) 0, Urine Bacteria (Auto) NEGATIVE, Urine Squamous Epithelial Cells 0, Urine Mucus (Auto) SMALL, Urine Sperm (Auto) 04/09/19 14:55: POC Lactate (Misc Panel) 0.66 CBC/BMP Laboratory Tests 04/09/19 11:45 Red Blood Count 5.28, Mean Corpuscular Volume 86.7, Mean Corpuscular Hemoglobin 28.4, Mean Corpuscular Hemoglobin Concent 32.8, Red Cell Distribution Width 13.4, Neutrophils (%) (Auto) 87.2 H, Lymphocytes (%) (Auto) 5.2 L, Monocytes (%) (Auto) 6.6 H, Eosinophils (%) (Auto) 0.4, Basophils (%) (Auto) 0.2, Neutrophils # (Auto) 11.3 H, Lymphocytes # (Auto) 0.7 L, Monocytes # (Auto) 0.9 H, Eosinophils # (Auto) 0.1, Basophils # (Auto) 0.0 Assessment/Plan Abdomen pain , SBO due to underlying Crohns with flare NGT placed, surgery consulted. IV pain management. solumedrol. bowel rest/NPO Tobacco dependence - prn nicotene patch Plan / VTE VTE Prophylaxis Ordered?: Yes MANNY PATTERSON DO Apr 09, 2019 15:17
--- NOTE | 2019-04-10 12:55 | REP ---
Clinical: Small bowel obstruction. Technique: Supine and upright views of the abdomen and pelvis. Findings: Air-filled significantly distended loops of small bowel are appreciated consistent with high-grade small bowel obstruction. Scattered air-fluid levels are also identified. Nasogastric tube extends into the stomach below left hemidiaphragm. No organomegaly. Skeletal structures are intact. Impression: High-grade small bowel obstruction. Electronically Signed by Leif Arellano MD 04/10/2019 12:46 P
[2019-04-10 14:00] VITALS: BP 118/63
--- NOTE | 2019-04-10 14:37 | IPNPDOC ---
Text Note Date of Service The patient was seen on 04/10/19. NOTE S: patient states saw GI as outpatient and told he could not go one crohns dave atment until HCV was treated. Patient states will be released from snf in 2 months. He states no improvement or worsening of abdomen pain, no N, no V, increased hunger. no flatus or stool O: Vitals as below General: mild to moderate distress HRRR LCTA Abdomen: soft , diffusely tender, decreased but present bowel sounds. no rebound, no rigidity XRAY abd: reviewed films and discussed with patient. SBO with transition point. A/P: 1. SBO with underlying crohns - no signs of abscess or perforation. Will continue with NGT, PPI, Bowel rest and IV steroid. WBC increased, CRP increased (despite steroid), ESR negative. Will add zosyn IV antibiotic. continue IVF. increase ambulation. Sx and GI consulted. Will repeat KUB in AM VS,Fishbone, I+O VS, Fishbone, I+O Laboratory Tests 04/10/19 05:22 Red Blood Count 4.56, Mean Corpuscular Volume 86.6, Mean Corpuscular Hemoglobin 28.7, Mean Corpuscular Hemoglobin Concent 33.2, Red Cell Distribution Width 13.2, Calcium Level 8.0 L Vital Signs Date Time Temp Pulse Resp B/P (MAP) Pulse Ox O2 Delivery O2 Flow Rate FiO2 04/10/19 14:15 14 04/10/19 14:00 98.1 71 118/63 (81) 95 04/09/19 20:10 Room Air I&O- Last 24 Hours up to 6 AM 04/10/19 05:59 Intake Total 2000 ml Output Total 200 ml Balance 1800 ml MANNY PATTERSON DO Apr 10, 2019 14:37
[2019-04-10] MEDS: PIPERACILLIN/TAZOBACTAM SOD 4.5 GM in D5W MINI-BAG PLUS 50 ML IV SCH ×2 (16:17→23:36)
[2019-04-10] MEDS: ENOXAPARIN 40 MG/0.4 ML SYRINGE (J1650) SC SCH (18:06)
[2019-04-10 22:00] VITALS: BP 115/65
[2019-04-11] MEDS: D5W/0.45% SODIUM CHLORIDE 1,000 ML IV SCH ×3 (01:12→23:00)
[2019-04-11] MEDS: MORPHINE 4 MG/ML 1ML VIAL/SYRINGE (J2270) IV PRN ×4 (02:52→15:36)
[2019-04-11 06:19] VITALS: BP 113/60
[2019-04-11 06:22] LABS: HEMOGLOBIN 12.1 g/dl (13.5-17.5); MEAN CORPUSCULAR HEMOGLOBIN 28.6 pg (27.0-33.0); MEAN CORPUSCULAR HGB CONC 32.7 g/dl (32.0-36.5); MEAN CORPUSCULAR VOLUME 87.5 fl (80.0-96.0); PLATELET COUNT, AUTOMATED 345 10^3/uL (150-450); RED BLOOD COUNT 4.23 10^6/uL (4.30-6.10); WHITE BLOOD COUNT 12.7 10^3/uL (4.0-10.0)
[2019-04-11] MEDS: methylPREDNISolone INJ 125 MG/2 ML VIAL (J2930) IV SCH ×3 (06:48→22:40)
[2019-04-11 06:53] LABS: BLOOD UREA NITROGEN 14 MG/DL (7-18); C REACTIVE PROTEIN QUANTITATIV 7.34 MG/DL (0.00-0.30); CALCIUM LEVEL 8.1 MG/DL (8.5-10.1); CARBON DIOXIDE LEVEL 28 MEQ/L (21-32); CHLORIDE LEVEL 107 MEQ/L (98-107); CREATININE FOR GFR 0.68 MG/DL (0.70-1.30); GLOMERULAR FILTRATION RATE > 60.0 (>60); GLUCOSE, FASTING 182 MG/DL (70-100); POTASSIUM SERUM 4.5 MEQ/L (3.5-5.1); SODIUM LEVEL 139 MEQ/L (136-145)
[2019-04-11] MEDS: PIPERACILLIN/TAZOBACTAM SOD 4.5 GM in D5W MINI-BAG PLUS 50 ML IV SCH ×2 (08:10→15:35)
--- NOTE | 2019-04-11 09:30 | REP ---
Clinical: Small bowel obstruction. Comparison: 04/10/2019 Technique: Supine and upright views of the abdomen and pelvis. Findings: A high-grade small bowel obstruction is appreciated. Nasogastric tube extends below left hemidiaphragm into the stomach. Impression: Continued evidence for high-grade small bowel obstruction. Electronically Signed by Leif Arellano MD 04/11/2019 09:21 A
--- NOTE | 2019-04-11 11:38 | IPNPDOC ---
Text Note Date of Service The patient was seen on 04/11/19. NOTE S: pateint passed flatus and 2 hard constipated stools yesterday evening. Sta patrick hungry and wants NGT out and diet advanced. States no abdomen pain. no fever. no N, no V O: Vitals as below General: pleasant NAD AAOx3 HEENT: NG tube intact and draining yellow material HRRR LCTA no W/R/R Abdomen: soft, LLQ firmness, High pitched tinkle noises R middle and lower quadrant, non tender, sluggish bowel sound on left. no guarding, no rebound, no rigidity Ext: no edema XRAY - abdomen reviewed with patient. SBO with sharp transition zone. concerns for developing megacolon. A/P: 1. SBO with underlying crohns - no signs of abscess or perforation. Will continue with NGT, PPI, Bowel rest and IV steroid. WBC and CRP improving. On zosyn and IV steroids. Call placed to surgery for assistance. Considering gastrograffin and SBFT xray. VS,Fishbone, I+O VS, Fishbone, I+O Laboratory Tests 04/11/19 06:02 Red Blood Count 4.23 L, Mean Corpuscular Volume 87.5, Mean Corpuscular Hemoglobin 28.6, Mean Corpuscular Hemoglobin Concent 32.7, Red Cell Distribution Width 13.6, Calcium Level 8.1 L Vital Signs Date Time Temp Pulse Resp B/P (MAP) Pulse Ox O2 Delivery O2 Flow Rate FiO2 04/11/19 11:29 16 04/11/19 06:19 97.9 61 113/60 (77) 94 04/09/19 20:10 Room Air I&O- Last 24 Hours up to 6 AM 04/11/19 06:00 Intake Total 600 ml Output Total 1700 ml Balance -1100 ml MANNY PATTERSON DO Apr 11, 2019 11:38
[2019-04-11 14:04] VITALS: BP 113/62
[2019-04-11] MEDS: ENOXAPARIN 40 MG/0.4 ML SYRINGE (J1650) SC SCH (19:59)
[2019-04-11 22:00] VITALS: BP 112/63
[2019-04-12] MEDS: PIPERACILLIN/TAZOBACTAM SOD 4.5 GM in D5W MINI-BAG PLUS 50 ML IV SCH ×3 (00:27→15:40)
[2019-04-12] MEDS: MORPHINE 4 MG/ML 1ML VIAL/SYRINGE (J2270) IV PRN ×6 (00:28→23:47)
[2019-04-12] MEDS: D5W/0.45% SODIUM CHLORIDE 1,000 ML IV SCH ×3 (03:15→21:53)
[2019-04-12 06:00] VITALS: BP 121/72
[2019-04-12 06:29] LABS: HEMATOCRIT 36.9 % (42.0-52.0); HEMOGLOBIN 12.1 g/dl (13.5-17.5); MEAN CORPUSCULAR HEMOGLOBIN 28.6 pg (27.0-33.0); MEAN CORPUSCULAR HGB CONC 32.8 g/dl (32.0-36.5); MEAN CORPUSCULAR VOLUME 87.2 fl (80.0-96.0); PLATELET COUNT, AUTOMATED 354 10^3/uL (150-450); RED BLOOD COUNT 4.23 10^6/uL (4.30-6.10); WHITE BLOOD COUNT 12.2 10^3/uL (4.0-10.0)
[2019-04-12] MEDS: methylPREDNISolone INJ 125 MG/2 ML VIAL (J2930) IV SCH ×3 (06:45→23:17)
[2019-04-12 06:53] LABS: BLOOD UREA NITROGEN 16 MG/DL (7-18); CALCIUM LEVEL 7.9 MG/DL (8.5-10.1); CARBON DIOXIDE LEVEL 30 MEQ/L (21-32); CHLORIDE LEVEL 105 MEQ/L (98-107); CREATININE FOR GFR 0.64 MG/DL (0.70-1.30); GLOMERULAR FILTRATION RATE > 60.0 (>60); GLUCOSE, FASTING 160 MG/DL (70-100); POTASSIUM SERUM 4.2 MEQ/L (3.5-5.1); SODIUM LEVEL 140 MEQ/L (136-145)
[2019-04-12 14:00] VITALS: BP 119/73
--- NOTE | 2019-04-12 16:32 | IPNPDOC ---
Text Note Date of Service The patient was seen on 04/12/19. NOTE S: patient states continues to have flatus and had small stool this AM. shauna nues with intermittent cramping abdomen pain. no Nausea. states NGT irritating back of throat but is happy to have sips of clear liquids (removed by NGT) O: Vitals as below General: pleasant , mild distress. AAOx3 HRRR LCTA Abdomen : distended but soft, NABS in all quadrants EXCEPT RLQ. RLQ with high pitched tingling noises. no rebound, no rigidity, no guarding Ext: no edema A/P: SBO with underlying crohns disease Continue NGT, Steroids and zosyn. Repeat flat and upright KUB in AM. Labs r eviewed and stable. Spoke with Dr Castro yesterday and case reviewed. does NOT recommend po or pr catharetics or promotility agents. Continue with NGT and wait until KUB/SBO resolves before removing NGT. Advance to clears for "taste" but leave NGT in place VS,Diegobone, I+O VS, Fishbone, I+O Laboratory Tests 04/12/19 06:10 Red Blood Count 4.23 L, Mean Corpuscular Volume 87.2, Mean Corpuscular Hemoglobin 28.6, Mean Corpuscular Hemoglobin Concent 32.8, Red Cell Distribution Width 13.4, Calcium Level 7.9 L Vital Signs Date Time Temp Pulse Resp B/P (MAP) Pulse Ox O2 Delivery O2 Flow Rate FiO2 04/12/19 07:15 16 04/12/19 06:00 97.7 45 121/72 (88) 92 04/09/19 20:10 Room Air I&O- Last 24 Hours up to 6 AM 04/12/19 06:00 Intake Total 1348 ml Output Total 1000 ml Balance 348 ml MANNY PATTERSON DO Apr 12, 2019 08:11
[2019-04-12] MEDS: ENOXAPARIN 40 MG/0.4 ML SYRINGE (J1650) SC SCH (17:20)
[2019-04-12 20:46] VITALS: BP 112/66
[2019-04-12 22:00] VITALS: BP 112/66
[2019-04-13] MEDS: PIPERACILLIN/TAZOBACTAM SOD 4.5 GM in D5W MINI-BAG PLUS 50 ML IV SCH ×4 (00:02→23:58)
[2019-04-13 06:00] VITALS: BP 103/60
[2019-04-13] MEDS: methylPREDNISolone INJ 125 MG/2 ML VIAL (J2930) IV SCH ×3 (06:32→23:58)
[2019-04-13] MEDS: MORPHINE 4 MG/ML 1ML VIAL/SYRINGE (J2270) IV PRN ×5 (06:33→23:58)
[2019-04-13 07:17] LABS: HEMATOCRIT 37.4 % (42.0-52.0); HEMOGLOBIN 12.1 g/dl (13.5-17.5); MEAN CORPUSCULAR HEMOGLOBIN 28.2 pg (27.0-33.0); MEAN CORPUSCULAR HGB CONC 32.4 g/dl (32.0-36.5); MEAN CORPUSCULAR VOLUME 87.2 fl (80.0-96.0); PLATELET COUNT, AUTOMATED 315 10^3/uL (150-450); RED BLOOD COUNT 4.29 10^6/uL (4.30-6.10)
[2019-04-13 07:38] LABS: BLOOD UREA NITROGEN 11 MG/DL (7-18); C REACTIVE PROTEIN QUANTITATIV 4.62 MG/DL (0.00-0.30); CALCIUM LEVEL 7.9 MG/DL (8.5-10.1); CARBON DIOXIDE LEVEL 30 MEQ/L (21-32); CHLORIDE LEVEL 107 MEQ/L (98-107); CREATININE FOR GFR 0.63 MG/DL (0.70-1.30); GLOMERULAR FILTRATION RATE > 60.0 (>60); GLUCOSE, FASTING 142 MG/DL (70-100); POTASSIUM SERUM 4.4 MEQ/L (3.5-5.1); SODIUM LEVEL 140 MEQ/L (136-145)
[2019-04-13] MEDS: D5W/0.45% SODIUM CHLORIDE 1,000 ML IV SCH ×2 (08:14→17:21)
--- NOTE | 2019-04-13 08:37 | REP ---
Clinical: Small bowel obstruction. Technique: Supine and upright views of the abdomen and pelvis. Comparison: 04/11/2019 Findings: Nasogastric tube in satisfactory position. Dilated bowel with air-fluid levels consistent with high-grade small bowel obstruction. No obvious free air to suggest perforation. No organomegaly. Skeletal structures intact. Impression: Findings consistent with high-grade small bowel obstruction essentially unchanged from prior examination. Electronically Signed by Leif Arellano MD 04/13/2019 08:28 A
--- NOTE | 2019-04-13 09:58 | IPNPDOC ---
Text Note Date of Service The patient was seen on 04/13/19. NOTE S: pateint states passing gas, had 3 stools today and yesterday evening. no ab domen pain. hoping to get NGTout. O: Vitals as below General: pleasant, AAOx3 NAD HRRR LCTA no W/R/R Abdomen: soft , distended, non tender,diminished BS on left, high pitch tingle on right lower half. Ext: no edema A/P: SBO with underlying crohns disease and stricture Continue NGT, Steroids and zosyn. abd xray images reviewed with pateint and worsening. Labs reviewed and stable. Spoke with Dr Sheffield who will see pateint today. Patient may need resection. CPR improving. check AM labs VS,Fishbone, I+O VS, Fishbone, I+O Laboratory Tests 04/13/19 06:54 Red Blood Count 4.29 L, Mean Corpuscular Volume 87.2, Mean Corpuscular Hemoglobin 28.2, Mean Corpuscular Hemoglobin Concent 32.4, Red Cell Distribution Width 13.5, Calcium Level 7.9 L Vital Signs Date Time Temp Pulse Resp B/P (MAP) Pulse Ox O2 Delivery O2 Flow Rate FiO2 04/13/19 06:53 16 04/13/19 06:00 98.0 50 103/60 (74) 97 04/09/19 20:10 Room Air I&O- Last 24 Hours up to 6 AM 04/13/19 06:00 Intake Total 3880 ml Output Total 2000 ml Balance 1880 ml MANNY PATTERSON DO Apr 13, 2019 09:58
[2019-04-13 14:00] VITALS: BP 101/61
[2019-04-13] MEDS: ENOXAPARIN 40 MG/0.4 ML SYRINGE (J1650) SC SCH (17:21)
--- NOTE | 2019-04-13 18:03 | IPN ---
DATE: 04/13/2019 TIME: 1535 HISTORY: Patient is a 33-year-old man who was admitted on 03/12/2019 with evidence of a bowel obstruction. He has a history of Crohn's disease, apparently diagnosed in about 2014 on a colonoscopy in [facility]. He has not been on any recent medication. He has been incarcerated in a state correctional facility recently. He was admitted back in February of this year to [facility] with a small abscess in the left side of the abdomen adjacent to the small bowel, apparently with some obstructive symptoms then. He did respond to treatment. He was admitted now with some markedly dilated small bowel in the mid and upper abdomen with a clearly markedly narrowed segment of terminal ileum. He has been on steroids since admission without much improvement in his abdominal distension and he has been using pain medication pretty regularly. He does report that he has been passing some flatus and passing small amounts of stool. Vital signs show that he has been afebrile with a pulse ranging from the 40s to low 60s generally. His blood pressure is good. Intake and output show that yesterday he received 3470 in with 2000 out. He does have an nasogastric (NG) tube in place to low intermittent suction, but has been taking clear liquids as well. He has been voiding regularly, though we have no urine output recorded. PHYSICAL EXAMINATION: Patient was walking back to his bed from the bathroom when I came to see him. He is alert and appears fairly comfortable. The NG tube is in place. The abdomen is somewhat protuberant. He has a few tinkly bowel sounds. He has tympany to percussion across the upper abdomen. The abdomen is full and moderately firm, though somewhat softer in the lower quadrants. There is no discrete point tenderness in the abdomen and he has no sign of hernia. Laboratory studies show a white count of 9, hemoglobin 12, hematocrit 37 and a platelet count of 315,000. Chemistry profile showed a sodium of 140, potassium 4.4, chloride 107, CO2 of 30, BUN of 11, creatinine 0.6 and a glucose of 142. He has a C-reactive protein that is 4.6 compared to 6 at the time of admission and 14 on 04/10/2019. IMAGING STUDIES: Today it shows some markedly distended air-filled small bowel in the mid and upper abdomen. IMPRESSION: Patient appears to have an ileal obstruction secondary to chronic Crohn's disease. After reviewing his most recent CT scan and his imaging, I suspect that this will not resolve with medical therapy and that a resection will be necessary. The patient is interested in avoiding surgery if possible and notes that he has been passing some flatus. PLAN: I counseled the patient that I think even if he might tolerate some clear liquids, that he probably will not tolerate solid food at this point. After some discussion, we agreed that we will try clamping his NG tube and allow him to continue with some clear liquids. We will leave the NG tube in for now so that if he develops worsening nausea or vomiting with the tube clamped, that we can unclamp his tube, decompress him again. If he tolerates the clear liquids, we can decide on whether to discharge him home, even if staying on a clear liquid diet is necessary. Again, I think he will probably be best served by proceeding with a resection of his terminal ileum. I will leave this to his primary surgeon, Dr. Castro, to reassess him in the morning as long as he remains stable until then.
[2019-04-13 22:00] VITALS: BP 124/67
[2019-04-14] MEDS: MORPHINE 4 MG/ML 1ML VIAL/SYRINGE (J2270) IV PRN ×5 (04:00→21:51)
[2019-04-14 05:40] LABS: HEMATOCRIT 36.7 % (42.0-52.0); HEMOGLOBIN 11.9 g/dl (13.5-17.5); MEAN CORPUSCULAR HEMOGLOBIN 28.3 pg (27.0-33.0); MEAN CORPUSCULAR HGB CONC 32.4 g/dl (32.0-36.5); MEAN CORPUSCULAR VOLUME 87.4 fl (80.0-96.0); PLATELET COUNT, AUTOMATED 304 10^3/uL (150-450)
[2019-04-14 05:59] LABS: BLOOD UREA NITROGEN 8 MG/DL (7-18); CARBON DIOXIDE LEVEL 30 MEQ/L (21-32); CHLORIDE LEVEL 105 MEQ/L (98-107); CREATININE FOR GFR 0.64 MG/DL (0.70-1.30); GLOMERULAR FILTRATION RATE > 60.0 (>60); GLUCOSE, FASTING 174 MG/DL (70-100); POTASSIUM SERUM 4.3 MEQ/L (3.5-5.1); SODIUM LEVEL 140 MEQ/L (136-145)
[2019-04-14 06:00] VITALS: BP 123/71
[2019-04-14] MEDS: methylPREDNISolone INJ 125 MG/2 ML VIAL (J2930) IV SCH ×3 (06:30→23:52)
[2019-04-14] MEDS: D5W/0.45% SODIUM CHLORIDE 1,000 ML IV SCH ×3 (06:31→21:50)
[2019-04-14] MEDS: PIPERACILLIN/TAZOBACTAM SOD 4.5 GM in D5W MINI-BAG PLUS 50 ML IV SCH ×3 (08:09→23:51)
[2019-04-14] MEDS: ONDANSETRON 4MG/2ML VIAL (J2405) IV PRN ×2 (08:10→13:50)
--- NOTE | 2019-04-14 11:00 | IPNPDOC ---
Text Note Date of Service The patient was seen on 04/14/19. NOTE S: patient is happy NGT has been removed . He is asked for double portions on clear liquids because he is hunger. He states no N, no V. He states passing gas and relief with gas x last night for belching. no fever. seen by surgery earlier today O: Vitals as below General: pleasant NAD AAOx3 HRRR LCTA Abdomen : distended , tympanic, decrease bowel sound with high pitched tinkling Ext; no edema A/P: SBO with underlying crohns disease and stricture Surgery managing obstruction and has advanced diet/NGT out. Crohns - continue with Steroids and zosyn. Labs reviewed and stable. improving CRP level. Check AM labs and KUB STD check - patient requested STD evaluation -advised this can be done as outpatient thru skilled nursing system VS,Kimberlyn, I+O VS, Fishbone, I+O Laboratory Tests 04/14/19 04:59 Red Blood Count 4.20 L, Mean Corpuscular Volume 87.4, Mean Corpuscular Hemoglobin 28.3, Mean Corpuscular Hemoglobin Concent 32.4, Red Cell Distribution Width 13.2, Calcium Level 8.0 L Vital Signs Date Time Temp Pulse Resp B/P (MAP) Pulse Ox O2 Delivery O2 Flow Rate FiO2 04/14/19 08:20 18 04/14/19 06:00 97.6 43 123/71 (88) 95 04/09/19 20:10 Room Air I&O- Last 24 Hours up to 6 AM 04/14/19 06:00 Intake Total 2720 ml Output Total 600 ml Balance 2120 ml MANNY PATTERSON DO Apr 14, 2019 11:00
--- NOTE | 2019-04-14 12:07 | IPNPDOC ---
Text Note Date of Service The patient was seen on 04/14/19. NOTE No acute events. He is passing gas and small BMs. He tolerated ngt clamped for 24 hours with clq diet. No complaints. Denies pains. VSSAF NAD abd - soft, slightly distended, nontender labs - see below A) 33y/o male with hep C and a crohns exacerbation resulting in distal SBO that is resolving slowly P) ambulate clq diet only steroids will advance to full liquds tomorrow and d/c if he can tolerate those for 24 hours. Diallo Castro DO VS,Kimberlyn, I+O VS, Fishrobbye, I+O Laboratory Tests 04/14/19 04:59 Red Blood Count 4.20 L, Mean Corpuscular Volume 87.4, Mean Corpuscular Hemoglobin 28.3, Mean Corpuscular Hemoglobin Concent 32.4, Red Cell Distribution Width 13.2, Calcium Level 8.0 L Vital Signs Date Time Temp Pulse Resp B/P (MAP) Pulse Ox O2 Delivery O2 Flow Rate FiO2 04/14/19 08:20 18 04/14/19 06:00 97.6 43 123/71 (88) 95 04/09/19 20:10 Room Air I&O- Last 24 Hours up to 6 AM 04/14/19 05:59 Intake Total 2420 ml Output Total 600 ml Balance 1820 ml JORGE CASTRO DO Apr 14, 2019 12:07
[2019-04-14 14:00] VITALS: BP 106/57
[2019-04-14 15:22] LABS: HEPATITIS A ANTIBODY IGM NEGATIVE (NEGATIVE); HEPATITIS B CORE ANTIBODY IGM NEGATIVE (NEGATIVE); HEPATITIS B SURFACE ANTIGEN NEGATIVE (NEGATIVE); HEPATITIS C VIRUS ABY INDEX > 11.0 INDEX (<0.8)
[2019-04-14] MEDS: ENOXAPARIN 40 MG/0.4 ML SYRINGE (J1650) SC SCH (17:00)
[2019-04-14 22:00] VITALS: BP 125/74
[2019-04-15] MEDS: MORPHINE 4 MG/ML 1ML VIAL/SYRINGE (J2270) IV PRN ×5 (02:12→20:09)
[2019-04-15 06:00] VITALS: BP 123/72
[2019-04-15] MEDS: methylPREDNISolone INJ 125 MG/2 ML VIAL (J2930) IV SCH ×3 (06:27→23:37)
[2019-04-15 07:00] LABS: HEMATOCRIT 37.8 % (42.0-52.0); HEMOGLOBIN 12.2 g/dl (13.5-17.5); MEAN CORPUSCULAR HEMOGLOBIN 28.3 pg (27.0-33.0); MEAN CORPUSCULAR HGB CONC 32.3 g/dl (32.0-36.5); MEAN CORPUSCULAR VOLUME 87.7 fl (80.0-96.0); PLATELET COUNT, AUTOMATED 329 10^3/uL (150-450); RED BLOOD COUNT 4.31 10^6/uL (4.30-6.10); WHITE BLOOD COUNT 10.5 10^3/uL (4.0-10.0)
[2019-04-15 07:24] LABS: BLOOD UREA NITROGEN 6 MG/DL (7-18); CALCIUM LEVEL 8.2 MG/DL (8.5-10.1); CARBON DIOXIDE LEVEL 29 MEQ/L (21-32); CHLORIDE LEVEL 106 MEQ/L (98-107); GLOMERULAR FILTRATION RATE > 60.0 (>60); GLUCOSE, FASTING 141 MG/DL (70-100); POTASSIUM SERUM 3.8 MEQ/L (3.5-5.1); SODIUM LEVEL 141 MEQ/L (136-145)
[2019-04-15] MEDS: PIPERACILLIN/TAZOBACTAM SOD 4.5 GM in D5W MINI-BAG PLUS 50 ML IV SCH ×3 (08:44→23:37)
[2019-04-15] MEDS: MIRALAX *UNIT DOSE* 17GM PACKET PO SCH ×2 (08:45→20:06)
--- NOTE | 2019-04-15 08:53 | REP ---
Clinical: Small bowel obstruction. Technique: Supine and upright upright view of the abdomen and pelvis. Comparison: 04/13/2019. Findings: Continued evidence for bowel obstruction suggested. Clinical correlation is required. Previously a placed nasogastric tube has been removed. Skeletal structures are intact. No organomegaly. Impression: Continued evidence for small bowel obstruction. Electronically Signed by Leif Arellano MD 04/15/2019 08:44 A
--- NOTE | 2019-04-15 08:56 | IPNPDOC ---
Text Note Date of Service The patient was seen on 04/15/19. NOTE No acute events. He is passing gas and small BMs still. He is tolerating clq d iet but is still distended. VSSAF NAD abd - soft, distended, nontender labs - see below A) 33y/o male with hep C and a crohns exacerbation resulting in distal SBO that is resolving slowly P) ambulate clq diet only steroids I have added some laxatives, and will advance to a full liquid diet if his distention goes away. If no improvement, then we will have to discuss surgery. Diallo Castro DO VS,Fishdada, I+O VS, Fishrobbye, I+O Laboratory Tests 04/15/19 06:35 Red Blood Count 4.31, Mean Corpuscular Volume 87.7, Mean Corpuscular Hemoglobin 28.3, Mean Corpuscular Hemoglobin Concent 32.3, Red Cell Distribution Width 13.1, Calcium Level 8.2 L Vital Signs Date Time Temp Pulse Resp B/P (MAP) Pulse Ox O2 Delivery O2 Flow Rate FiO2 04/15/19 06:49 17 04/15/19 06:00 97.8 43 123/72 (89) 96 04/09/19 20:10 Room Air I&O- Last 24 Hours up to 6 AM 04/15/19 06:00 Intake Total 5750 ml Balance 5750 ml JORGE CASTRO DO Apr 15, 2019 08:56
[2019-04-15] MEDS: D5W/0.45% SODIUM CHLORIDE 1,000 ML IV SCH ×2 (10:33→20:06)
--- NOTE | 2019-04-15 11:51 | IPNPDOC ---
Subjective Date Seen The patient was seen on 04/15/19. Subjective Chief Complaint/HPI Patient seen and examined at the bedside. Reports he has been passing flatus, and has had several formed small bowel movements since yesterday when he was started on a clear liquid diet and NG tube was removed. However, that he is having increased abdominal distention. Objective Physical Examination General Exam: Positive: Alert, Cooperative, Mild Distress (secondary to abdominal pain) ENT Exam: Positive: Atraumatic, Mucous membr. moist/pink Neck Exam: Negative: JVD Chest Exam: Positive: Clear to auscultation, Normal air movement; Negative: Rales, Rhonchi, Wheezing Heart Exam: Positive: Rate Normal, Regular Rhythm, Normal S1, Normal S2 Abdomen Exam: Positive: Soft, Tenderness (patient with some distention noted. Mild tenderness to palpation in the lower quadrants bilaterally. No rebound tenderness, guarding, or rigidity noted. Tympanic to percussion) Extremity Exam: Negative: Tenderness, Swelling Neuro Exam: Positive: Normal Speech Psych Exam: Positive: Mental status NL, Mood NL, Oriented x 3 Assessment /Plan Plan/VTE VTE Prophylaxis Ordered?: Yes Plan SBO with underlying crohns disease and stricture Patient's NGT was D/C'd by Gen Surg on 04/14 and was started on a clear liquid diet Since then the patient reports having several formed BMs and reports passing some flatus However, he endorses that his abdomen has become more distended F/U Abdominal XR this AM notable for obstruction Laxatives and OOB, ambulation encouraged by Gen Surg We will follow up on progress, possible surgery Crohns Disease Continue with Steroids and zosyn CRP markers have normalized Patient counseled extensively to follow-up with GI as an outpatient for contin ued therapy. DVT Prophylaxis Lovenox SC Dispo--pending clinical improvement. VS, I&O, 24H, Fishbone Vital Signs/I&O Vital Signs Date Time Temp Pulse Resp B/P (MAP) Pulse Ox O2 Delivery O2 Flow Rate FiO2 04/15/19 10:44 16 04/15/19 06:00 97.8 43 123/72 (89) 96 04/09/19 20:10 Room Air I&O- Last 24 Hours up to 6 AM 04/15/19 06:00 Intake Total 5750 ml Balance 5750 ml Laboratory Data 24H LABS Laboratory Tests 2 04/14/19 13:39: 04/14/19 13:43: Hepatitis A IgM Antibody NEGATIVE, Hepatitis B Surface Antigen NEGATIVE, Hepatitis B Core IgM Antibody NEGATIVE, Hepatitis C Antibody Index > 11.0H 04/15/19 06:35: Nucleated Red Blood Cells % (auto) 0.0, Anion Gap 6L, Glomerular Filtration Rate > 60.0, Blood Urea Nitrogen 6L, Creatinine 0.70, Sodium Level 141, Potassium Level 3.8, Chloride Level 106, Carbon Dioxide Level 29, Calcium Level 8.2L, C- Reactive Protein, Quantitative 0.30 CBC/BMP Laboratory Tests 04/15/19 06:35 Red Blood Count 4.31, Mean Corpuscular Volume 87.7, Mean Corpuscular Hemoglobin 28.3, Mean Corpuscular Hemoglobin Concent 32.3, Red Cell Distribution Width 13.1, Calcium Level 8.2 L RADHA GARCIA MD Apr 15, 2019 11:51
[2019-04-15 14:34] VITALS: BP 111/61
[2019-04-15] MEDS: ENOXAPARIN 40 MG/0.4 ML SYRINGE (J1650) SC SCH (17:18)
[2019-04-15 22:08] VITALS: BP 111/61
[2019-04-16] MEDS: MORPHINE 4 MG/ML 1ML VIAL/SYRINGE (J2270) IV PRN ×6 (00:41→22:42)
[2019-04-16 05:27] VITALS: BP 135/80
[2019-04-16] MEDS: D5W/0.45% SODIUM CHLORIDE 1,000 ML IV SCH (05:47)
[2019-04-16] MEDS: methylPREDNISolone INJ 125 MG/2 ML VIAL (J2930) IV SCH (06:23)
[2019-04-16 06:24] LABS: HEMOGLOBIN 11.6 g/dl (13.5-17.5); MEAN CORPUSCULAR HEMOGLOBIN 27.4 pg (27.0-33.0); MEAN CORPUSCULAR HGB CONC 32.2 g/dl (32.0-36.5); MEAN CORPUSCULAR VOLUME 85.1 fl (80.0-96.0); PLATELET COUNT, AUTOMATED 291 10^3/uL (150-450); RED BLOOD COUNT 4.23 10^6/uL (4.30-6.10)
[2019-04-16 06:53] LABS: BLOOD UREA NITROGEN 4 MG/DL (7-18); CALCIUM LEVEL 8.1 MG/DL (8.5-10.1); CARBON DIOXIDE LEVEL 30 MEQ/L (21-32); CHLORIDE LEVEL 107 MEQ/L (98-107); CREATININE FOR GFR 0.59 MG/DL (0.70-1.30); GLOMERULAR FILTRATION RATE > 60.0 (>60); GLUCOSE, FASTING 145 MG/DL (70-100); POTASSIUM SERUM 3.8 MEQ/L (3.5-5.1); SODIUM LEVEL 142 MEQ/L (136-145)
--- NOTE | 2019-04-16 07:42 | IPNPDOC ---
Text Note Date of Service The patient was seen on 04/16/19. NOTE No acute events. He is passing gas and small BMs still. He is tolerating clq d iet and is less distended. VSSAF NAD abd - soft, less distended, nontender labs - see below A) 33y/o male with hep C and a crohns exacerbation resulting in distal SBO that is resolving slowly P) ambulate advance to full liquids steroids laxatives if tolerating full liquids and still having BMs, he can go tomorrow with full liquids and laxatives. Diallo Castro DO VS,Fishrobbye, I+O VS, Radhae, I+O Laboratory Tests 04/16/19 05:22 Red Blood Count 4.23 L, Mean Corpuscular Volume 85.1, Mean Corpuscular Hemoglobin 27.4, Mean Corpuscular Hemoglobin Concent 32.2, Red Cell Distribution Width 13.2, Calcium Level 8.1 L Vital Signs Date Time Temp Pulse Resp B/P (MAP) Pulse Ox O2 Delivery O2 Flow Rate FiO2 04/16/19 05:47 16 04/16/19 05:27 97.8 44 135/80 (98) 92 I&O- Last 24 Hours up to 6 AM 04/16/19 06:00 Intake Total 5401 ml Output Total 350 ml Balance 5051 ml JORGE CASTRO DO Apr 16, 2019 07:42
[2019-04-16] MEDS: MIRALAX *UNIT DOSE* 17GM PACKET PO SCH ×2 (08:45→20:28)
[2019-04-16] MEDS: PIPERACILLIN/TAZOBACTAM SOD 4.5 GM in D5W MINI-BAG PLUS 50 ML IV SCH ×2 (08:45→15:25)
[2019-04-16 14:07] VITALS: BP 131/81
[2019-04-16] MEDS: methylPREDNISolone INJ 40 MG/1 ML VIAL (J2920) IV SCH ×2 (15:26→22:22)
--- NOTE | 2019-04-16 16:57 | IPNPDOC ---
Subjective Date Seen The patient was seen on 04/16/19. Subjective Chief Complaint/HPI Patient seen and examined at the bedside. States that he tolerated a clear liquid diet reasonably well yesterday. He has been advanced to a full liquid diet as per general surgery. States that he continues to have small bowel movements and is passing flatus. He notes that his abdominal distention is also improved. Objective Physical Examination General Exam: Positive: Alert, Cooperative, No Acute Distress ENT Exam: Positive: Atraumatic, Mucous membr. moist/pink Neck Exam: Negative: JVD Chest Exam: Positive: Clear to auscultation, Normal air movement; Negative: Rales, Rhonchi, Wheezing Heart Exam: Positive: Rate Normal, Regular Rhythm, Normal S1, Normal S2 Abdomen Exam: Positive: Soft, Tenderness (patient with some distention noted. Mild tenderness to palpation in the lower quadrants bilaterally. No rebound tenderness, guarding, or rigidity noted. Tympanic to percussion) Extremity Exam: Negative: Tenderness, Swelling Neuro Exam: Positive: Normal Speech Psych Exam: Positive: Mental status NL, Mood NL, Oriented x 3 Assessment /Plan Plan/VTE VTE Prophylaxis Ordered?: Yes Plan SBO with underlying crohns disease and stricture Patient's diet has been advanced to full liquid, and he has been ordered laxatives by general surgery We will follow up on his progress, and general surgery recommendations Crohns Disease Continue with Steroids and zosyn CRP markers have normalized Patient counseled extensively to follow-up with GI as an outpatient for continued therapy. DVT Prophylaxis Lovenox SC Dispo--pending clinical improvement. VS, I&O, 24H, Fishbone Vital Signs/I&O Vital Signs Date Time Temp Pulse Resp B/P (MAP) Pulse Ox O2 Delivery O2 Flow Rate FiO2 04/16/19 15:26 18 04/16/19 14:07 98.4 47 131/81 (98) 94 I&O- Last 24 Hours up to 6 AM 04/16/19 06:00 Intake Total 5401 ml Output Total 350 ml Balance 5051 ml Laboratory Data 24H LABS Laboratory Tests 2 04/16/19 05:22: Nucleated Red Blood Cells % (auto) 0.0, Anion Gap 5L, Glomerular Filtration Rate > 60.0, Blood Urea Nitrogen 4L, Creatinine 0.59L, Sodium Level 142, Potassium Level 3.8, Chloride Level 107, Carbon Dioxide Level 30, Calcium Level 8.1L CBC/BMP Laboratory Tests 04/16/19 05:22 Red Blood Count 4.23 L, Mean Corpuscular Volume 85.1, Mean Corpuscular Hemoglobin 27.4, Mean Corpuscular Hemoglobin Concent 32.2, Red Cell Distribution Width 13.2, Calcium Level 8.1 L RADHA GARCIA MD Apr 16, 2019 16:57
[2019-04-16] MEDS: ENOXAPARIN 40 MG/0.4 ML SYRINGE (J1650) SC SCH (18:34)
[2019-04-16] MEDS ORDERED: ACETAMINOPHEN *IV* 1,000 MG in APPROPRIATE DILUENT 1 EA IV ONE (21:45)
[2019-04-16 22:00] VITALS: BP 158/89
[2019-04-17] MEDS: PIPERACILLIN/TAZOBACTAM SOD 4.5 GM in D5W MINI-BAG PLUS 50 ML IV SCH ×4 (00:03→22:58)
[2019-04-17] MEDS: MORPHINE 4 MG/ML 1ML VIAL/SYRINGE (J2270) IV PRN ×6 (03:54→23:31)
[2019-04-17] MEDS: methylPREDNISolone INJ 40 MG/1 ML VIAL (J2920) IV SCH (05:38)
[2019-04-17 06:00] VITALS: BP 113/56
[2019-04-17 06:12] LABS: HEMATOCRIT 36.5 % (42.0-52.0); HEMOGLOBIN 11.9 g/dl (13.5-17.5); MEAN CORPUSCULAR HEMOGLOBIN 27.7 pg (27.0-33.0); MEAN CORPUSCULAR HGB CONC 32.6 g/dl (32.0-36.5); MEAN CORPUSCULAR VOLUME 85.1 fl (80.0-96.0); PLATELET COUNT, AUTOMATED 288 10^3/uL (150-450); RED BLOOD COUNT 4.29 10^6/uL (4.30-6.10); WHITE BLOOD COUNT 17.6 10^3/uL (4.0-10.0)
[2019-04-17 06:31] LABS: BLOOD UREA NITROGEN 8 MG/DL (7-18); CALCIUM LEVEL 8.1 MG/DL (8.5-10.1); CARBON DIOXIDE LEVEL 30 MEQ/L (21-32); CHLORIDE LEVEL 105 MEQ/L (98-107); CREATININE FOR GFR 0.68 MG/DL (0.70-1.30); GLOMERULAR FILTRATION RATE > 60.0 (>60); GLUCOSE, FASTING 151 MG/DL (70-100); POTASSIUM SERUM 3.7 MEQ/L (3.5-5.1); SODIUM LEVEL 139 MEQ/L (136-145)
[2019-04-17 08:23] VITALS: BP 127/78
[2019-04-17 08:28] VITALS: BP 127/78
[2019-04-17] MEDS: MIRALAX *UNIT DOSE* 17GM PACKET PO SCH ×2 (09:10→21:00)
--- NOTE | 2019-04-17 10:00 | IPNPDOC ---
Text Note Date of Service The patient was seen on 04/17/19. NOTE No acute events. He is passing gas and small BMs still. He is tolerating clq d iet and is still distended. VSSAF NAD abd - soft, less distended, nontender labs - see below A) 33y/o male with hep C and a crohns exacerbation resulting in distal SBO that is resolving slowly P) ambulate place NGT to LIS sips and chips steroids laxatives I discussed flq diet and steroids then d/c vs. surgery. I also explained that surgery will result in an ileostomy due to the inflammation. He understands, and has agreed to proceed with the surgery. We will plan for surgery on Sunday with the robot. Diallo Castro DO VS,Kimberlyn, I+O VS, Kimberlyn, I+O Laboratory Tests 04/17/19 05:18 Red Blood Count 4.29 L, Mean Corpuscular Volume 85.1, Mean Corpuscular Hemoglobin 27.7, Mean Corpuscular Hemoglobin Concent 32.6, Red Cell Distribution Width 13.2, Calcium Level 8.1 L Vital Signs Date Time Temp Pulse Resp B/P (MAP) Pulse Ox O2 Delivery O2 Flow Rate FiO2 04/17/19 08:35 18 04/17/19 08:28 98.1 68 127/78 (94) 04/17/19 06:00 94 I&O- Last 24 Hours up to 6 AM 04/17/19 05:59 Intake Total 3350 ml Output Total 0 ml Balance 3350 ml JORGE CASTRO DO Apr 17, 2019 10:00
[2019-04-17] MEDS ORDERED: ACETAMINOPHEN *IV* 1,000 MG in APPROPRIATE DILUENT 1 EA IV PRN (11:15)
--- NOTE | 2019-04-17 13:13 | IPNPDOC ---
Subjective Date Seen The patient was seen on 04/17/19. Subjective Chief Complaint/HPI Patient seen and examined at the bedside. Reports continued abdominal distention despite passing flatus and small soft BMs. Objective Physical Examination General Exam: Positive: Alert, Cooperative, No Acute Distress ENT Exam: Positive: Atraumatic, Mucous membr. moist/pink Neck Exam: Negative: JVD Chest Exam: Positive: Clear to auscultation, Normal air movement; Negative: Rales, Rhonchi, Wheezing Heart Exam: Positive: Rate Normal, Regular Rhythm, Normal S1, Normal S2 Abdomen Exam: Positive: Soft, Tenderness (patient with some distention noted. Mild tenderness to palpation in the lower quadrants bilaterally. No rebound tenderness, guarding, or rigidity noted. Tympanic to percussion) Extremity Exam: Negative: Tenderness, Swelling Neuro Exam: Positive: Normal Speech Psych Exam: Positive: Mental status NL, Mood NL, Oriented x 3 Assessment /Plan Plan/VTE VTE Prophylaxis Ordered?: Yes Plan SBO with underlying crohns disease and stricture Patient continues to have abdominal distention/pain despite conservative measures Surgery has evaluated the patient again this AM and has recommended surgical intervention as the patient's condition has not improved. Cont IV Zosyn, Steroids being down tapered Crohns Disease Continue with Steroids and zosyn CRP markers have normalized Patient counseled extensively to follow-up with GI as an outpatient for con tinued therapy. DVT Prophylaxis Lovenox SC Dispo--pending clinical improvement. VS, I&O, 24H, Fishbone Vital Signs/I&O Vital Signs Date Time Temp Pulse Resp B/P (MAP) Pulse Ox O2 Delivery O2 Flow Rate FiO2 04/17/19 12:39 20 04/17/19 08:28 98.1 68 127/78 (94) 96 I&O- Last 24 Hours up to 6 AM 04/17/19 06:00 Intake Total 3170 ml Output Total 0 ml Balance 3170 ml Laboratory Data 24H LABS Laboratory Tests 2 04/17/19 05:18: Nucleated Red Blood Cells % (auto) 0.0, Anion Gap 4L, Glomerular Filtration Rate > 60.0, Blood Urea Nitrogen 8#, Creatinine 0.68L, Sodium Level 139, Potassium Level 3.7, Chloride Level 105, Carbon Dioxide Level 30, Calcium Level 8.1L CBC/BMP Laboratory Tests 04/17/19 05:18 Red Blood Count 4.29 L, Mean Corpuscular Volume 85.1, Mean Corpuscular Hemoglobin 27.7, Mean Corpuscular Hemoglobin Concent 32.6, Red Cell Distribution Width 13.2, Calcium Level 8.1 L RADHA GARCIA MD Apr 17, 2019 13:13
[2019-04-17 13:50] VITALS: BP 127/82
[2019-04-17] MEDS: ACETAMINOPHEN 325 MG/10.15 ML UDC PO PRN (13:57)
[2019-04-17] MEDS: ENOXAPARIN 40 MG/0.4 ML SYRINGE (J1650) SC SCH (17:11)
[2019-04-17] MEDS ORDERED: HumaLOG INSULIN (NovoLOG) PER UNIT SC SCH (18:00)
[2019-04-17] MEDS ORDERED: FAT EMULSION IV 20% 500 ML IV SCH (18:00)
[2019-04-17] MEDS ORDERED: AMINO AC/ELECTROLYTE/DEX/CALC 2,000 ML IV SCH (18:00)
[2019-04-17] MEDS: NS 1,000 ML IV SCH (18:06)
--- NOTE | 2019-04-17 19:09 | REP ---
KUB ABDOMEN AND PELVIS: Two KUB films of the abdomen and pelvis were performed and compared to prior to study of 04/15/2019. There is again significant dilatation of multiple small bowel loops consistent with small bowel obstruction. There is essentially no change compared to the prior study. Nasogastric tube is seen coiled in the stomach. IMPRESSION: Persistent small bowel obstruction. Electronically Signed by Austin Garcia MD 04/18/2019 09:55 A
[2019-04-17 22:00] VITALS: BP 140/93
--- NOTE | 2019-04-17 22:25 | REPVR ---
EXAM: XR Abdomen, 1 View EXAM DATE/TIME: 04/17/2019 9:37 PM CLINICAL HISTORY: 33 years old, male; Abdominal pain; Generalized; Additional info: Worsening abd pain and distention TECHNIQUE: Imaging protocol: Frontal supine view of the abdomen/pelvis. COMPARISON: CR Abdomen,Flat Plate KUB 04/17/2019 1:36 PM FINDINGS: Tubes, catheters and devices: NG tube forming a loop in the stomach at the level of the gastric body. Gastrointestinal tract: Moderate bowel gas which is primarily colonic. There is decreased gas overall since the prior study with decreased evidence of small bowel distention although some residual may persist. Bones/joints: Unremarkable for age. IMPRESSION: 1. Moderate bowel gas which is decreased overall since a study done earlier in the day. 2. Bowel gas appears to be primarily colonic with less small bowel distention since the earlier study although some residual may persist. Electronically signed by: Dheeraj Das On 04/17/2019 22:25:30 PM
[2019-04-17] MEDS: KETOROLAC 30 MG/ML VIAL (J1885) IV PRN (22:59)
[2019-04-17] MEDS ORDERED: KETOROLAC 30 MG/ML VIAL (J1885) IV SCH (23:00)
[2019-04-17] MEDS ORDERED: ISOVUE-370 76% 100ML VIAL (Q9967) As Ordered ONE (23:31)
--- NOTE | 2019-04-18 00:25 | REPVR ---
EXAM: CT Abdomen and Pelvis With Contrast EXAM DATE/TIME: 04/17/2019 11:24 PM CLINICAL HISTORY: 33 years old, male; Abdominal pain; Generalized; Patient HX: HX crohns; Additional info: Increased abdominal pain distention TECHNIQUE: Imaging protocol: Axial computed tomography images of the abdomen and pelvis with intravenous contrast. Coronal and sagittal reformatted images were created and reviewed. Radiation optimization: All CT scans at this facility use at least one of these dose optimization techniques: automated exposure control; mA and/or kV adjustment per patient size (includes targeted exams where dose is matched to clinical indication); or iterative reconstruction. Contrast material: ISO;Contrast volume: 100 ml;Contrast route: AC; COMPARISON: CT ABD/PEL W/IV CONTRAST ONLY 04/09/2019 12:36 PM FINDINGS: Tubes, catheters and devices: NG tube forming a loop in the gastric fundus. Lungs: Mild bibasilar atelectasis or consolidation, greatest in the lower lobes. Pleural space: Minimal bilateral pleural effusions. Liver: Normal. No mass. The liver attenuation is 73 Hounsfield units and the spleen is 104 Hounsfield units. Gallbladder and bile ducts: Status post cholecystectomy. Pancreas: Normal. No ductal dilation. Spleen: Normal. No splenomegaly. Adrenals: Normal. No mass. Kidneys and ureters: There is a right renal cyst measuring 7 mm. Stomach and bowel: Distention of small bowel with air-fluid levels. There appears to be a point of transition in the left upper quadrant adjacent to the side with collapsed segment of bowel which appears to reflect ileum and suggests wall thickening and may reflect enteritis.. This is suggested on series 202, image #61. Appendix: A normal appendix is seen. Intraperitoneal space: Moderate peritoneal ascites with induration of mesentery. The degree of distention and overall is similar to the prior study and peritoneal ascites is increased. 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 Lymph nodes: Numerous mildly prominent mesenteric nodes which are slightly greater than expected for age. The mesenteric nodes are similar. Bladder: Unremarkable as visualized. Reproductive: Unremarkable as visualized. Bones/joints: No acute fracture. No dislocation. Soft tissues: Subcutaneous edema about the abdomen and pelvis. IMPRESSION: 1. Small bowel obstruction which is similar to 04/09/2019. A point of transition is suggested in the upper left abdomen and appears to reflect a collapsed segment of small bowel with wall thickening and surrounding induration which may reflect enteritis. 2. Mild mesenteric adenopathy which is similar to the prior study and may be reactive. 3. Moderate peritoneal ascites with induration of the mesentery which is increased since prior study. There is also increased subcutaneous edema and minimal bilateral pleural effusion suggesting generalized anasarca. 4. Mild bibasilar atelectasis or consolidation, greatest in the lower lobes. 5. NG tube extending into the stomach which is new since the prior study. 6. Status post cholecystectomy. 7. 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 COMMENT: Consistent with the [employer]'s Incidental Findings Committee Report (J Am Kay Radiol 2010): Unless the patient's specific circumstances suggest otherwise, any liver lesion 0.5 cm or less, any cystic kidney lesion less than 1.0 cm, and/or any adrenal lesion 1.0 cm or less not otherwise characterized in this report as possessing suspicious or indeterminate imaging features is/are highly likely to be benign and do not require follow-up imaging or biopsy. Electronically signed by: Dheeraj Das On 04/18/2019 00:25:26 AM
[2019-04-18] MEDS: ACETAMINOPHEN 325 MG/10.15 ML UDC PO PRN (01:03)
[2019-04-18] MEDS: MORPHINE 4 MG/ML 1ML VIAL/SYRINGE (J2270) IV PRN ×4 (01:46→11:02)
[2019-04-18] MEDS: NS 1,000 ML IV SCH ×2 (03:51→17:19)
[2019-04-18] MEDS: KETOROLAC 30 MG/ML VIAL (J1885) IV PRN (05:12)
[2019-04-18 06:00] VITALS: BP 100/52
[2019-04-18] MEDS: MIRALAX *UNIT DOSE* 17GM PACKET PO SCH ×3 (08:21→20:13)
[2019-04-18] MEDS: PIPERACILLIN/TAZOBACTAM SOD 4.5 GM in D5W MINI-BAG PLUS 50 ML IV SCH ×3 (08:21→23:30)
[2019-04-18] MEDS ORDERED: predniSONE 20 MG TAB NG SCH (09:00)
[2019-04-18] MEDS ORDERED: CHLORASEPTIC SPRAY MT PRN (10:15)
[2019-04-18] MEDS ORDERED: PILL CUTTER 1 EACH XX PRN (10:15)
[2019-04-18] MEDS: SIMETHICONE 80 MG CHEW TAB PO PRN ×2 (11:02→20:43)
[2019-04-18] MEDS ORDERED: ACETAMINOPHEN *IV* 1,000 MG in APPROPRIATE DILUENT 1 EA IV PRN (11:45)
--- NOTE | 2019-04-18 11:53 | IPNPDOC ---
Subjective Date Seen The patient was seen on 04/18/19. Subjective Chief Complaint/HPI Patient seen and examined at the bedside. Reports that he had a episode of increased abdominal pain last night which was relieved by IV morphine and Toradol. This morning, the patient states that his pain is relatively well controlled. An NG tube was ordered by surgery, and the patient has been kept nothing by mouth. He is scheduled for a PICC line this morning, and he will be started on TPN. Objective Physical Examination General Exam: Positive: Alert, Cooperative, Mild Distress (abdominal discomfort) ENT Exam: Positive: Atraumatic, Mucous membr. moist/pink Neck Exam: Negative: JVD Chest Exam: Positive: Clear to auscultation, Normal air movement; Negative: Rales, Rhonchi, Wheezing Heart Exam: Positive: Rate Normal, Regular Rhythm, Normal S1, Normal S2 Abdomen Exam: Positive: Soft, Tenderness (patient with some distention noted. Mild tenderness to palpation in the lower quadrants bilaterally. No rebound tenderness, guarding, or rigidity noted. Tympanic to percussion) Extremity Exam: Negative: Tenderness, Swelling Neuro Exam: Positive: Normal Speech Psych Exam: Positive: Mental status NL, Mood NL, Oriented x 3 Assessment /Plan Plan/VTE VTE Prophylaxis Ordered?: Yes Plan SBO with underlying crohns disease and stricture Patient continues to have abdominal distention/pain despite conservative measures Cont IV Zosyn, pain control as ordered Surgery on board-->Patient kept NPO, NG Tube ordered, PICC Line placement and TPN to be started---patient tentatively scheduled for the OR on Sunday04/21/19 Crohns Disease Continue with zosyn CRP markers have trended upwards again Patient counseled extensively to follow-up with GI as an outpatient for continued therapy. DVT Prophylaxis Lovenox SC Dispo--pending clinical improvement. VS, I&O, 24H, Fishbone Vital Signs/I&O Vital Signs Date Time Temp Pulse Resp B/P (MAP) Pulse Ox O2 Delivery O2 Flow Rate FiO2 04/18/19 11:02 16 04/18/19 06:00 98.0 65 100/52 (68) 94 I&O- Last 24 Hours up to 6 AM 04/18/19 05:59 Intake Total 890 ml Output Total 600 ml Balance 290 ml Laboratory Data 24H LABS Laboratory Tests 2 04/18/19 07:41: C-Reactive Protein, Quantitative 15.70H RADHA GARCIA MD Apr 18, 2019 11:53
[2019-04-18] MEDS ORDERED: HYDROmorphone HCL 2 MG/ML 1ML VIAL (J1170) As Ordered ONE (12:00)
[2019-04-18] MEDS: HYDROmorphone HCL 2 MG/ML 1ML VIAL (J1170) IV PRN ×4 (12:14→22:27)
--- NOTE | 2019-04-18 15:12 | IPNPDOC ---
Text Note Date of Service The patient was seen on 04/18/19. NOTE No acute events. He is passing gas and small BMs still. He is tolerating NGT, but is still distended. VSSAF NAD abd - soft, less distended, nontender labs - see below A) 33y/o male with hep C and a crohns exacerbation resulting in distal SBO that is not resolving P) ambulate NGT to LIS sips and chips steroids laxatives plan to decompress over the weekend and plan for surgery on Sunday Diallo Castro DO VS,Radhae, I+O VS, Fishbone, I+O Vital Signs Date Time Temp Pulse Resp B/P (MAP) Pulse Ox O2 Delivery O2 Flow Rate FiO2 04/18/19 12:25 19 04/18/19 06:00 98.0 65 100/52 (68) 94 I&O- Last 24 Hours up to 6 AM 04/18/19 06:00 Intake Total 770 ml Output Total 600 ml Balance 170 ml JORGE CASTRO DO Apr 18, 2019 15:12
[2019-04-18] MEDS ORDERED: LIDOCAINE 1% MDV 20ML VIAL As Ordered ONE (15:59)
[2019-04-18] MEDS ORDERED: SODIUM CHLORIDE 0.9% INJ 10 ML SYR IV PRN (17:15)
[2019-04-18 17:16] VITALS: BP 94/62
[2019-04-18] MEDS: SODIUM CHLORIDE 0.9% INJ 10 ML SYR IV SCH (17:20)
[2019-04-18] MEDS: ENOXAPARIN 40 MG/0.4 ML SYRINGE (J1650) SC SCH (17:20)
[2019-04-18] MEDS ORDERED: MULTIVITAMIN -ADULT INJECTION 10 ML, CR/CU/SE/MN/ZN INJ 1 ML in AMINO AC/ELECTROLYTE/DE... IV SCH (18:00)
[2019-04-18] MEDS ORDERED: FAT EMULSION IV 20% 500 ML IV SCH (18:00)
[2019-04-18] MEDS: HumaLOG INSULIN (NovoLOG) PER UNIT SC SCH ×2 (18:00→23:47)
[2019-04-18 23:26] VITALS: BP 105/64
[2019-04-19 00:06] LABS: HCV RNA (INTERNATIONAL UNITS) 33871000 IU/mL (.); HEPATITIS C QUANTITATION See Final Results IU/mL (.); HEPATITIS C VIRUS GENOTYPE 3 (.)
[2019-04-19] MEDS: HYDROmorphone HCL 2 MG/ML 1ML VIAL (J1170) IV PRN ×5 (01:32→14:47)
[2019-04-19] MEDS: NS 1,000 ML IV SCH ×2 (04:34→22:07)
[2019-04-19] MEDS: SODIUM CHLORIDE 0.9% INJ 10 ML SYR IV SCH ×2 (05:53→22:06)
[2019-04-19 06:08] VITALS: BP 97/65
[2019-04-19] MEDS: HumaLOG INSULIN (NovoLOG) PER UNIT SC SCH ×3 (06:14→18:00)
[2019-04-19] MEDS: ONDANSETRON 4MG/2ML VIAL (J2405) IV PRN (07:59)
[2019-04-19] MEDS: PIPERACILLIN/TAZOBACTAM SOD 4.5 GM in D5W MINI-BAG PLUS 50 ML IV SCH ×2 (08:00→19:26)
[2019-04-19] MEDS: MIRALAX *UNIT DOSE* 17GM PACKET PO SCH (08:22)
[2019-04-19 09:29] LABS: HEMATOCRIT 49.6 % (42.0-52.0); HEMOGLOBIN 16.3 g/dl (13.5-17.5); MEAN CORPUSCULAR HEMOGLOBIN 27.7 pg (27.0-33.0); MEAN CORPUSCULAR HGB CONC 32.9 g/dl (32.0-36.5); MEAN CORPUSCULAR VOLUME 84.2 fl (80.0-96.0); PLATELET COUNT, AUTOMATED 304 10^3/uL (150-450); RED BLOOD COUNT 5.89 10^6/uL (4.30-6.10)
[2019-04-19 09:45] VITALS: BP 97/65
[2019-04-19 09:53] LABS: WHITE BLOOD COUNT 33.8 10^3/uL (4.0-10.0)
[2019-04-19 09:57] LABS: BLOOD UREA NITROGEN 25 MG/DL (7-18); CARBON DIOXIDE LEVEL 25 MEQ/L (21-32); CHLORIDE LEVEL 101 MEQ/L (98-107); CREATININE FOR GFR 0.92 MG/DL (0.70-1.30); GLOMERULAR FILTRATION RATE > 60.0 (>60); GLUCOSE, FASTING 154 MG/DL (70-100); MAGNESIUM LEVEL 2.1 MG/DL (1.8-2.4); POTASSIUM SERUM 3.9 MEQ/L (3.5-5.1); SODIUM LEVEL 135 MEQ/L (136-145)
[2019-04-19] MEDS ORDERED: ACETAMINOPHEN *IV* 1,000 MG in APPROPRIATE DILUENT 1 EA IV ONE (12:00)
--- NOTE | 2019-04-19 13:01 | IPNPDOC ---
Subjective Date Seen The patient was seen on 04/19/19. Subjective Chief Complaint/HPI Patient seen and examined at the bedside. He is noted to be in more pain this morning. He states that his left-sided abdominal pain is also radiating to his left shoulder. He states that it is reproducible upon palpation. Denies any shortness of breath or palpitations. He is having minimal output from his NG tube. Objective Physical Examination General Exam: Positive: Alert, Cooperative, Moderate Distress (2/2 abdominal pain) ENT Exam: Positive: Atraumatic; Negative: Mucous membr. moist/pink (dry mucous membranes) Neck Exam: Negative: JVD Chest Exam: Positive: Clear to auscultation, Normal air movement; Negative: Rales, Rhonchi, Wheezing Heart Exam: Positive: Rate Normal, Regular Rhythm, Normal S1, Normal S2 Abdomen Exam: Positive: Soft, Tenderness (patient with some distention noted. Mild tenderness to palpation in the lower quadrants bilaterally. No rebound tenderness, guarding, or rigidity noted. Tympanic to percussion) Extremity Exam: Negative: Tenderness, Swelling Neuro Exam: Positive: Normal Speech Psych Exam: Positive: Mental status NL, Mood NL, Oriented x 3 Assessment /Plan Plan/VTE VTE Prophylaxis Ordered?: Yes Plan SBO with underlying crohns disease and stricture Patient continues to have abdominal distention/pain, and he states that it is worse this morning White blood cell count has trended up to 34K this AM---I did discuss my concern about the patient's worsening WBC and worsening abdominal pain with Dr. Aguilera this morning, he will evaluate the patient and assess the need for possible surgical intervention. Fortunately, the patient's Lactic Acid level is wnl Cont IV Zosyn, pain control as ordered Cont IVF Hydration, TPN as ordered We will follow up with Gen Surg recommendations Crohns Disease Continue with zosyn CRP markers have trended upwards again Patient counseled extensively to follow-up with GI as an outpatient for continued therapy. DVT Prophylaxis Lovenox SC Dispo--pending clinical improvement. VS, I&O, 24H, Fishbone Vital Signs/I&O Vital Signs Date Time Temp Pulse Resp B/P (MAP) Pulse Ox O2 Delivery O2 Flow Rate FiO2 04/19/19 11:03 16 04/19/19 10:53 95 04/19/19 09:45 96.0 93 97/65 (76) I&O- Last 24 Hours up to 6 AM 04/19/19 06:00 Intake Total 2093 ml Output Total 700 ml Balance 1393 ml Laboratory Data 24H LABS Laboratory Tests 2 04/18/19 17:11: Bedside Glucose (Misc Panel) 74 04/18/19 23:24: Bedside Glucose (Misc Panel) 131H 04/19/19 06:05: Bedside Glucose (Misc Panel) 176H 04/19/19 08:49: Nucleated Red Blood Cells % (auto) 0.0, Anion Gap 9, Glomerular Filtration Rate > 60.0, Blood Urea Nitrogen 25#H, Creatinine 0.92, Sodium Level 135L, Potassium Level 3.9, Chloride Level 101, Carbon Dioxide Level 25, Calcium Level 7.0L, Magnesium Level 2.1 04/19/19 10:17: Lactic Acid Level 1.6 04/19/19 11:17: Bedside Glucose (Misc Panel) 167H CBC/BMP Laboratory Tests 04/19/19 08:49 Red Blood Count 5.89, Mean Corpuscular Volume 84.2, Mean Corpuscular Hemoglobin 27.7, Mean Corpuscular Hemoglobin Concent 32.9, Red Cell Distribution Width 14.0, Calcium Level 7.0 L RADHA GARCIA MD Apr 19, 2019 13:01
[2019-04-19 14:00] VITALS: BP 120/68
--- NOTE | 2019-04-19 15:42 | IPNPDOC ---
Subjective General Date/Time Seen The patient was seen on 04/19/19 at 15:36. Subject Chief Complaint/History The patient is a 33-year-old male admitted with a reason for visit of Crohns Disease Of Small Intestine,Small Bowel Obst. Patient has been admitted for more than a week for exacerbation of his Crohn's disease with resulting bowel obstruction. I was informed that he has been having increasing pain for the past couple of days despite him having a nasogastric tube. His WBC also spiked up to 30,000 today. Original plan was to bring him to the operating room on Sunday for abdominal exploration. He denies passing flatus. Last bowel movement recorded was 2 days ago. Current Medications Current Medications Current Medications Medications (Trade) Dose Ordered Sig/Roger Route PRN Reason Start Time Stop Time Status Last Admin Dose Admin Acetaminophen (Tylenol Suspension) 1,000 mg Q12HP PRN PO PAIN OR FEVER 04/17/19 11:45 04/18/19 07:18 DC 04/18/19 01:03 Acetaminophen 1000 mg/IV Miscellaneous Supplies 100 ml @ 400 mls/hr BIDP PRN IV PAIN 04/18/19 11:45 04/18/19 12:46 DC Acetaminophen 1000 mg/IV Miscellaneous Supplies 100 ml @ 400 mls/hr Q12HP PRN IV Pain, Fever 04/17/19 11:15 04/17/19 11:32 DC Amino Ac/Electrol/ Dextrose/Calcium 2,000 ml @ 75 mls/hr ONCE@1800 IV 04/17/19 18:00 04/17/19 18:00 DC Dextrose/Sodium Chloride 1,000 ml @ 100 mls/hr Q10H IV 04/09/19 15:15 04/16/19 07:59 DC 04/16/19 05:47 Enoxaparin Sodium (Lovenox) 40 mg DAILY@1800 SC 04/09/19 18:00 04/18/19 17:20 Fat Emulsion Intravenous 500 ml @ 20 mls/hr ONCE@1800 IV 04/17/19 18:00 04/17/19 18:00 DC Fat Emulsion Intravenous 500 ml @ 20 mls/hr ONCE@1800 IV 04/18/19 18:00 04/19/19 17:59 04/18/19 18:17 Heparin Sodium (Heparin (Flush)) 200 units ASDIRECTED PRN IV SEE LABEL COMMENTS 04/18/19 17:15 Heparin Sodium (Heparin (Flush)) 200 units PICC IV 04/18/19 18:00 Home Med (Med Rec Complete!) ASDIRECTED XX 04/09/19 15:15 04/09/19 15:15 DC Hydromorphone HCl (Dilaudid) 1 mg Q3HP PRN IV MILD PAIN (PS 1-4) 04/18/19 12:00 Hydromorphone HCl (Dilaudid) 1.6 mg Q3HP PRN IV MODERATE/SEVERE PAIN (PS 5-10) 04/18/19 12:00 04/25/19 11:59 04/19/19 14:47 Insulin Human Lispro (HumaLOG INSULIN) See Protocol Table Q6H MO 04/17/19 18:00 04/17/19 18:00 DC Insulin Human Lispro (HumaLOG INSULIN) See Protocol Table Q6H MO 04/18/19 18:00 04/19/19 12:01 DC 04/19/19 11:42 Ketorolac Tromethamine (ToRADol) 30 mg Q6HP IV 04/17/19 23:00 04/17/19 23:00 DC Ketorolac Tromethamine (ToRADol) 30 mg Q6HP PRN IV PAIN 04/17/19 23:00 04/18/19 07:18 DC 04/18/19 05:12 Methylprednisolone (SOLU medrol) 40 mg Q8H IV 04/16/19 15:00 04/17/19 11:11 DC 04/17/19 05:38 Methylprednisolone (SOLUmedrol) 80 mg Q8H IV 04/09/19 23:00 04/16/19 07:59 DC 04/16/19 06:23 Morphine Sulfate (Morphine Sulfate Inj) 2 mg Q4HP PRN IV PAIN 04/09/19 15:15 04/10/19 00:51 DC 04/09/19 21:43 Morphine Sulfate (Morphine Sulfate Inj) 4 mg Q2HP PRN IV SEVERE PAIN (PS 8-10) 04/17/19 23:30 04/18/19 11:56 DC 04/18/19 11:02 Morphine Sulfate (Morphine Sulfate Inj) 4 mg Q4HP PRN IV SEVERE PAIN (PS 8-10) 04/10/19 01:00 04/17/19 23:26 DC 04/17/19 21:03 Morphine Sulfate (Morphine Sulfate Inj) 4 mg STAT STAT IV 04/10/19 00:47 04/10/19 00:49 DC 04/10/19 00:56 Multivitamins 10 ml/Chromium/ Copper/Manganese/ Seleni/Zn 1 ml/ Amino Ac/Electrol/ Dextrose/Calcium 2,011 ml @ 75 mls/hr ONCE@1800 IV 04/18/19 18:00 04/19/19 17:59 04/18/19 18:16 Ondansetron HCl (ZOFRAN INJection) 8 mg Q6HP PRN IV NAUSEA OR VOMITING 04/09/19 15:15 04/19/19 07:59 Phenol (Chloraseptic Cocoa) 1 spray Q2HP PRN MT SORE THROAT 04/18/19 10:15 04/18/19 20:43 Piperacillin Sod/ Tazobactam Sod 4.5 gm/Dextrose 50 ml @ 50 mls/hr Q8H IV 04/10/19 16:00 04/19/19 08:00 Polyethylene Glycol (Miralax) 1 pkt BID PO 04/15/19 09:00 04/17/19 09:10 Prednisone (Deltasone) 40 mg DAILY NG 04/18/19 09:00 04/18/19 09:00 DC Simethicone (Mylicon) 120 mg TIDP PRN PO GAS PAIN 04/18/19 10:15 04/18/19 20:43 Sodium Chloride 1,000 ml @ 100 mls/hr Q10H IV 04/17/19 18:15 04/19/19 04:34 Sodium Chloride (Saline Lock Flush) 10 ML PICC IV 04/18/19 18:00 Sodium Chloride (Saline Lock Flush) 10ML ASDIRECTED PRN IV SEE LABEL COMMENTS 04/18/19 17:15 Allergies Coded Allergies: No Known Allergies (Unverified , 02/24/19) Objective Physical Examination Examination GENERAL APPEARANCE: Patient looks uncomfortable. SKIN: Warm and dry. HEENT: Nasogastric tube in place seems to be working but there is not much in the canister. NECK: Supple, no thyromegaly. No obvious jugular venous distention. LUNGS: Clear to auscultation bilaterally. No wheezing appreciated. HEART: No chest wall abnormalities. Regular rate and rhythm with no murmurs appreciated. ABDOMEN: Abdomen is round, tensely distended. Tender to palpation most prominent over the left lower abdomen with guarding EXTREMITIES: Extremities have no deformities. No edema identified. Vital Signs Vital Signs Date Time Temp Pulse Resp B/P (MAP) Pulse Ox O2 Delivery O2 Flow Rate FiO2 04/19/19 14:47 16 04/19/19 14:00 96.4 94 120/68 (85) 97 I&Os NG tube drainage was 700 today. Nothing recorded overnight. 600 the day prior. I&O- Last 24 Hours up to 6 AM 04/19/19 05:59 Intake Total 2093 ml Output Total 700 ml Balance 1393 ml Laboratory Data Labs 24H Laboratory Tests 2 04/18/19 17:11: Bedside Glucose (Misc Panel) 74 04/18/19 23:24: Bedside Glucose (Misc Panel) 131H 04/19/19 06:05: Bedside Glucose (Misc Panel) 176H 04/19/19 08:49: Nucleated Red Blood Cells % (auto) 0.0, Anion Gap 9, Glomerular Filtration Rate > 60.0, Blood Urea Nitrogen 25#H, Creatinine 0.92, Sodium Level 135L, Potassium Level 3.9, Chloride Level 101, Carbon Dioxide Level 25, Calcium Level 7.0L, Magnesium Level 2.1 04/19/19 10:17: Lactic Acid Level 1.6 04/19/19 11:17: Bedside Glucose (Misc Panel) 167H CBC/BMP Laboratory Tests 04/19/19 08:49 Red Blood Count 5.89, Mean Corpuscular Volume 84.2, Mean Corpuscular Hemoglobin 27.7, Mean Corpuscular Hemoglobin Concent 32.9, Red Cell Distribution Width 14.0, Calcium Level 7.0 L Impression Crohn's disease Small bowel obstruction LAD spike in the leukocytosis is concerning on whether this is a complete obs truction. The original plan was to bring him to the operating room on Sunday. I unfortunately don't think he can wait until that today so we'll bring him to the operating room today for abdominal exploration. Plan / VTE VTE Prophylaxis Ordered?: Yes NIKKO BENNETT MD Apr 19, 2019 15:42
[2019-04-19] MEDS ORDERED: LIDOCAINE 1% SDV INJ 30 ML VIAL As Ordered ONE (16:30)
[2019-04-19] MEDS ORDERED: BUPIVACAINE HCL 0.25% 30 ML VIAL As Ordered ONE (16:30)
[2019-04-19] MEDS ORDERED: ZOSYN 3.375 GM VIAL (J2543) As Ordered ONE (16:44)
[2019-04-19] MEDS ORDERED: BUPIVACAINE LIPOSOME/PF 1.3% 20ML VIAL (13.3MG/ML)(EXPAREL)(C9290 PER1MG) As Ordered ONE (17:12)
[2019-04-19] MEDS ORDERED: BUPIVACAINE HCL 0.5% 10 ML VIAL As Ordered ONE (17:12)
[2019-04-19] MEDS ORDERED: ROCURONIUM BROMIDE 50 MG/5 ML VIAL As Ordered ONE ×2 (17:32→18:27)
[2019-04-19] MEDS ORDERED: ZOSYN 3.375 GM VIAL (J2543) IV ONE (17:32)
[2019-04-19] MEDS ORDERED: fentaNYL 250 MCG/5 ML INJECTION (J3010) As Ordered ONE ×2 (17:35→18:27)
[2019-04-19] MEDS ORDERED: HYDROmorphone HCL 2 MG/ML 1ML VIAL (J1170) As Ordered ONE (17:41)
[2019-04-19] MEDS ORDERED: ACETAMINOPHEN 1000MG 100ML IV BTL (OFIRMEV) (J0131 PER 10MG) As Ordered ONE (17:56)
[2019-04-19] MEDS ORDERED: AMINO AC/ELECTROLYTE/DEX/CALC 2,000 ML IV SCH (18:00)
[2019-04-19] MEDS ORDERED: FAT EMULSION IV 20% 500 ML IV SCH (18:00)
[2019-04-19] MEDS ORDERED: ONDANSETRON 4MG/2ML VIAL (J2405) As Ordered ONE (18:27)
[2019-04-19] MEDS ORDERED: dexameTHASONE 4 MG/ML 1ML VIAL (J1100) As Ordered ONE (18:27)
[2019-04-19] MEDS ORDERED: MIDAZOLAM INJ 2 MG/2 ML VIAL (J2250) As Ordered ONE (18:27)
[2019-04-19] MEDS ORDERED: PROPOFOL 200 MG/20 ML VIAL As Ordered ONE (18:27)
[2019-04-19] MEDS ORDERED: LIDOCAINE 2% INJ 100 MG/5 ML SDV (FOR ANES.) As Ordered ONE (18:27)
[2019-04-19] MEDS ORDERED: KETOROLAC 60 MG/2 ML VIAL (J1885) As Ordered ONE (18:29)
[2019-04-19] MEDS ORDERED: SUGAMMADEX SODIUM 500 MG/5 ML VIAL (BRIDION) As Ordered ONE (18:29)
[2019-04-19] MEDS ORDERED: fentaNYL 100 MCG/2 ML INJECTION (J3010) As Ordered ONE (20:02)
[2019-04-19] MEDS ORDERED: diphenhydrAMINE INJ 50MG/ML VIAL (J1200) As Ordered ONE (20:08)
[2019-04-19] MEDS ORDERED: ONDANSETRON 4MG/2ML VIAL (J2405) IV PRN (20:30)
[2019-04-19] MEDS ORDERED: HYDROMORPHONE HCL 0.5 MG/ 0.5 ML SYRINGE (J1170 PER 1) IV PRN (20:30)
[2019-04-19] MEDS ORDERED: fentaNYL 100 MCG/2 ML INJECTION (J3010) IV PRN (20:30)
[2019-04-19] MEDS ORDERED: LR 1,000 ML IV SCH (20:30)
[2019-04-19] MEDS ORDERED: diphenhydrAMINE INJ 50MG/ML VIAL (J1200) IV ONE (21:15)
[2019-04-19 21:32] VITALS: BP 105/67
[2019-04-19 22:04] VITALS: BP 104/67
[2019-04-19] MEDS: KETOROLAC 30 MG/ML VIAL (J1885) IV SCH (22:04)
[2019-04-19] MEDS: ENOXAPARIN 40 MG/0.4 ML SYRINGE (J1650) SC SCH (22:04)
--- NOTE | 2019-04-19 22:42 | POST-OPPD ---
Postoperative Procedure Note Date Of Procedure: Apr 19, 2019 PREOPERATIVE DIAGNOSIS: Crohn's Disease with exacerbation, small bowel obstruction POSTOPERATIVE DIAGNOSIS: same FINDINGS: more than 2L of ascites drained. markedly distended loop of small bowel with abrupt transition at the distal ileum with marked thickening of the portion of small bowel to about 5 cms from the ligament of Treitz, mesenteric thickening, fat creeping and edema consistent with Crohn's disease. Multiple filmy and spongy gel like adhesions in the pelvis, the pelvic wall and structures in it are covered with thick exudates. Peritoneal surface, mesentery and omentum are edematous and swollen throughout. Omental adhesions underneath the previous right subcostal incision. s PROCEDURE: Exploratory Laparotomy, Lysis of adhesions, small bowel resection with end ileostomy SURGEON: Cole Aguilera MD [employer] CHAIR: ANESTHESIA: General Anesthesia SPECIMENS: small bowel ESTIMATED BLOOD LOSS: 200 mLs REPLACED: DRAINS: 19 reg drain to pelvis COMPLICATIONS: none POSTOPERATIVE CONDITION: stable to PACU COLE AGUILERA MD Apr 19, 2019 22:42
--- NOTE | 2019-04-19 22:43 | ROOPDOC ---
[facility] Report Of Operation Report of Operation DATE OF PROCEDURE: 04/19/19 PREOPERATIVE DIAGNOSIS: Crohn's Disease with exacerbation, small bowel obstruction POSTOPERATIVE DIAGNOSIS: same FINDINGS: more than 2L of ascites drained. markedly distended loop of small bowel with abrupt transition at the distal ileum with marked thickening of the portion of small bowel to about 5 cms from the ligament of Treitz, mesenteric thickening, fat creeping and edema consistent with Crohn's disease. Multiple filmy and spongy gel like adhesions in the pelvis, the pelvic wall and structures in it are covered with thick exudates. Peritoneal surface, mesentery and omentum are edematous and swollen throughout. Omental adhesions underneath the previous right subcostal incision. s PROCEDURE: Exploratory Laparotomy, Lysis of adhesions, small bowel resection with end ileostomy SURGEON: Cole Aguilera MD CARE PROCESS MANAGER: ANESTHESIA: General Anesthesia SPECIMENS: small bowel ESTIMATED BLOOD LOSS: 200 mLs REPLACED: DRAINS: 19 gilberto drain to pelvis COMPLICATIONS: none POSTOPERATIVE CONDITION: stable to PACU DESCRIPTION OF PROCEDURE: Patient has been receiving 4.5 g IV Zosyn every 8 hours. This was not available in the OR. He did receive Zosyn 3.3 cm 5 g IV in the operating room. He has a nasogastric tube in place when he arrived in the PACU. He was brought to the operating room and placed supine on table, both arms on an arm rest. Compression boots placed on his lower extremities for DVT prophylaxis. Gen. endotracheal anesthesia started. A Greer catheter was placed for urine output monitoring. He has a darkly colored concentrated urine and tachycardic to beginning the surgery. His abdomen was prepped and draped in usual sterile fashion.We paused for a surgical timeout using both pre-incision safety checklist to verify correct patient, procedure site and additional clinical information prior to beginning the procedure. I premarked the skin and bony landmarks on his abdomen and marked potential ar eas for ileostomy, colostomy. I started with a generous midline incision from the mid abdomen coming to below the umbilicus and ending up almost to the symphysis pubis eventually. This was slowly deepened through to the subcutaneous tissue. The anterior fascia was opened up above the umbilicus. The posterior sheath grasped at the midline and the abdomen entered in a controlled fashion. On opening up the posterior sheath immediate drainage of yellowish, straw- colored ascites poured out. I estimate about 3 L of ascites that we eventually sucked out of his abdomen. Slowly we enlarged the fascial incision to gain adequate exposure of the abdomen. We were met by a very markedly enlarged loop of small bowel in the midabdomen spray and out once the abdomen was opened up. There were is a good amount of this spongy gelatinous tissue that is adhered to the abdomen and causing adhesion to the anterior lateral abdominal wall. This was easily broken down with finger dissection. We slowly exteriorized bowel out of the abdomen and out of the pelvis. Most of the omentum seems to be retracted up higher and also adhered to a previous right subcostal incision from an open cholecystectomy. The colon weren't too apparent until after we exteriorized the bowel and lysed all the omental adhesions. After gaining entry to the abdomen and exteriorizing most of the bowel the inter-loop, interbowel adhesions were taken down starting at this area where there is a markedly distention of the bowel going proximally in a retrograde fashion I was able to easily free all the bowels to the ligament of Treitz. On inspection of the area of markedly distention there was an abrupt cutoff of the distention to this thickened loop of small bowel with associated mesenteric thickening, shortening, fat creeping consistent with a Crohn's disease. This extends from the distal ileum to about 30, 40 cm but and seen now fairly pliable, healthy, minimally acutely swollen terminal ileum. I estimate about 5-8 cm away from the junction of the cecum. The cecum itself appears mildly distended but overall looks healthy. The bowels are swollen including the mesentery but no gross areas of perforation or necrosis could see. I placed a pursestring of 3-0 silk in the markedly distended loop of bowel and threaded an 18 [place] nasogastric tube through the pursestring and decompressed bowel distally. Once bowels were decompressed the previously pink healthy-appearing wall now looks purplish, thick walled with blotches of bruising on the wall of the colon and eventually at about the early ileum started to come back to normal mildly swollen small bowel. At this point I made a decision to resect the clearly grossly abnormal small bowel causing the obstruction. I chose an area about 5 cm from the ligament of Treitz where the small bowel appears healthy. Small window was created in the mesentery and the bowel was divided with a LISETTE-75 stapler with a blue load. The small bowel mesentery was divided with LigaSure device and at times needed clips and suture ligatures as the mesenteries quite swollen and this area where the bowel is involved with Crohn's disease. I estimate a initially divided about 30 cm of grossly abnormal bowel to the area beyond the obstruction and this includes a portion of the markedly distended loop of bowel. Once I reached this area the bowel was again divided with 2 firings of the 75 mm LISETTE stapler with blue load. After this portion 90 divided all the omental attachments along the right subcostal incision and at this point I was able to evaluate the transverse colon , the positioning of the nasogastric tube as well as the left side of the colon. The removal of this portion of the bowel also allow me to now evaluate the pelvis and there is a good amount of exudative tissues throughout the howell and bowels inside of the pelvis. This was irrigated and I bluntly debrided as much of this exudative formation with resulting opening from the inflamed tissues. This was temporarily packed and again reevaluated the bowel. Due to the amount of distention and felt that the remaining loop of markedly distended bowel would not return to normal function. Her some blotchiness, bruising in the wall but overall may probably still be viable at some point. I chose an area which is still distended but more viable than the others and divided again portion of the small bowel including the mesentery. At this point a irrigated the whole of the abdomen with warm saline. I threaded a 19 Gilberto drain through the right side of the incision and left the end drain in the pelvis. The previously chosen area on the right side of the abdomen was chosen for ileostomy placement. A 2 cm distal skin was and subcutaneous tissue was removed to the fascia. The fascia was opened up and the underlying rectus muscles bluntly dissected to create about 82 finger breath opening in the loop of bowel which was still enlarged was delivered through the or for an end ileostomy. I rearranged to bowel to make sure to mesenteries not twisted. The abdomen was then closed with a running loop of 1 PDS. The lower peritoneum and posterior sheath was closed with a running 0 Vicryl. Loose leland and in between the leland and Telfa mark were placed. They did drain was secured to the skin. I changed gowns and gloves. The ileostomy was matured in a [place] fashion. Opening up the ileostomy into the outer serosa looks mildly purplish the inner mucosa looks pink, healthy albeit erythematous. I probed the ileostomy beyond the fascial opening and thought that the opening seems to be mildly tight but still has a remote my finger gush of enteric contents came out. The ileostomy appliance was then placed. Postoperative dressings placed. Patient promptly awakened, extubated and brought to recovery in stable condition. I placed some express along the midline incision as well as on both lateral side abdominal howell to attempt a transabdominal preperitoneal block. COLE AGUILERA MD Apr 19, 2019 22:43
[2019-04-19 23:04] VITALS: BP 100/61
[2019-04-20] VITALS (7 sets, daily range): BP systolic 88–100; BP diastolic 42–59
[2019-04-20] MEDS: HYDROMORPHONE HCL 0.5 MG/ 0.5 ML SYRINGE (J1170 PER 1) IV PRN ×5 (00:01→23:56)
[2019-04-20] MEDS: PIPERACILLIN/TAZOBACTAM SOD 4.5 GM in D5W MINI-BAG PLUS 50 ML IV SCH ×4 (00:14→23:56)
[2019-04-20] MEDS: HumaLOG INSULIN (NovoLOG) PER UNIT SC SCH ×5 (00:14→23:55)
[2019-04-20] MEDS: KETOROLAC 30 MG/ML VIAL (J1885) IV SCH ×4 (02:02→19:50)
[2019-04-20] MEDS: NS 1,000 ML IV SCH ×4 (02:02→16:13)
[2019-04-20] MEDS: SODIUM CHLORIDE 0.9% INJ 10 ML SYR IV SCH ×3 (06:00→23:47)
[2019-04-20 07:47] LABS: HEMATOCRIT 36.9 % (42.0-52.0); MEAN CORPUSCULAR HEMOGLOBIN 28.1 pg (27.0-33.0); MEAN CORPUSCULAR HGB CONC 33.3 g/dl (32.0-36.5); MEAN CORPUSCULAR VOLUME 84.2 fl (80.0-96.0); RED BLOOD COUNT 4.38 10^6/uL (4.30-6.10); WHITE BLOOD COUNT 29.6 10^3/uL (4.0-10.0)
[2019-04-20 07:52] LABS: HEMOGLOBIN 12.3 g/dl (13.5-17.5); PLATELET COUNT, AUTOMATED 200 10^3/uL (150-450)
[2019-04-20 08:06] LABS: ALBUMIN 0.9 GM/DL (3.2-5.2); ALT/SGPT 26 U/L (12-78); BILIRUBIN,TOTAL 0.7 MG/DL (0.2-1.0); BLOOD UREA NITROGEN 26 MG/DL (7-18); CALCIUM LEVEL 7.5 MG/DL (8.5-10.1); CARBON DIOXIDE LEVEL 28 MEQ/L (21-32); CHLORIDE LEVEL 105 MEQ/L (98-107); GLOMERULAR FILTRATION RATE > 60.0 (>60); GLUCOSE, FASTING 175 MG/DL (70-100); POTASSIUM SERUM 4.2 MEQ/L (3.5-5.1); SODIUM LEVEL 137 MEQ/L (136-145); TOTAL PROTEIN 3.5 GM/DL (6.4-8.2)
--- NOTE | 2019-04-20 11:14 | IPNPDOC ---
Subjective General Date/Time Seen The patient was seen on 04/20/19 at 11:13. Subject Chief Complaint/History The patient is a 33-year-old male admitted with a reason for visit of Crohns Disease Of Small Intestine,Small Bowel Obst. Current Medications Current Medications Current Medications Medications (Trade) Dose Ordered Sig/Roger Route PRN Reason Start Time Stop Time Status Last Admin Dose Admin Acetaminophen (Tylenol Suspension) 1,000 mg Q12HP PRN PO PAIN OR FEVER 04/17/19 11:45 04/18/19 07:18 DC 04/18/19 01:03 Acetaminophen 1000 mg/IV Miscellaneous Supplies 100 ml @ 400 mls/hr BIDP PRN IV PAIN 04/18/19 11:45 04/18/19 12:46 DC Acetaminophen 1000 mg/IV Miscellaneous Supplies 100 ml @ 400 mls/hr Q12HP PRN IV Pain, Fever 04/17/19 11:15 04/17/19 11:32 DC Amino Ac/Electrol/ Dextrose/Calcium 2,000 ml @ 75 mls/hr ONCE@1800 IV 04/19/19 18:00 04/20/19 17:59 04/19/19 21:46 Amino Ac/Electrol/ Dextrose/Calcium 2,000 ml @ 75 mls/hr ONCE@1800 IV 04/17/19 18:00 04/17/19 18:00 DC Dextrose/Sodium Chloride 1,000 ml @ 100 mls/hr Q10H IV 04/09/19 15:15 04/16/19 07:59 DC 04/16/19 05:47 Enoxaparin Sodium (Lovenox) 40 mg DAILY@1800 SC 04/09/19 18:00 04/19/19 22:04 Fat Emulsion Intravenous 500 ml @ 20 mls/hr ONCE@1800 IV 04/19/19 18:00 04/20/19 17:59 04/19/19 21:46 Fat Emulsion Intravenous 500 ml @ 20 mls/hr ONCE@1800 IV 04/17/19 18:00 04/17/19 18:00 DC Fat Emulsion Intravenous 500 ml @ 20 mls/hr ONCE@1800 IV 04/18/19 18:00 04/19/19 17:59 DC 04/18/19 18:17 Fentanyl Citrate (Sublimaze) 25 mcg Q5MP PRN IV MODERATE PAIN (PS 4-7) 04/19/19 20:30 04/19/19 21:30 DC Heparin Sodium (Heparin (Flush)) 200 units ASDIRECTED PRN IV SEE LABEL COMMENTS 04/18/19 17:15 Heparin Sodium (Heparin (Flush)) 200 units PICC IV 04/18/19 18:00 Home Med (Med Rec Complete!) ASDIRECTED XX 04/09/19 15:15 04/09/19 15:15 DC Hydromorphone HCl (Dilaudid) 0.4 mg Q5MP PRN IV MODERATE/SEVERE PAIN (PS 5-10) 04/19/19 20:30 04/19/19 21:30 DC Hydromorphone HCl (Dilaudid) 1 mg Q3HP PRN IV MILD PAIN (PS 1-4) 04/18/19 12:00 04/20/19 03:42 Hydromorphone HCl (Dilaudid) 1.6 mg Q3HP PRN IV MODERATE/SEVERE PAIN (PS 5-10) 04/18/19 12:00 04/25/19 11:59 04/19/19 14:47 Insulin Human Lispro (HumaLOG INSULIN) See Protocol Table Q6H VT 04/19/19 18:00 04/20/19 12:01 04/20/19 06:30 Insulin Human Lispro (HumaLOG INSULIN) See Protocol Table Q6H VT 04/17/19 18:00 04/17/19 18:00 DC Insulin Human Lispro (HumaLOG INSULIN) See Protocol Table Q6H VT 04/18/19 18:00 04/19/19 12:01 DC 04/19/19 11:42 Ketorolac Tromethamine (ToRADol) 30 mg Q6H IV 04/19/19 20:00 04/24/19 19:59 04/20/19 08:07 Ketorolac Tromethamine (ToRADol) 30 mg Q6HP IV 04/17/19 23:00 04/17/19 23:00 DC Ketorolac Tromethamine (ToRADol) 30 mg Q6HP PRN IV PAIN 04/17/19 23:00 04/18/19 07:18 DC 04/18/19 05:12 Lactated Ringer's 1,000 ml @ 100 mls/hr Q10H IV 04/19/19 20:30 04/19/19 21:30 DC Methylprednisolone (SOLU medrol) 40 mg Q8H IV 04/16/19 15:00 04/17/19 11:11 DC 04/17/19 05:38 Methylprednisolone (SOLUmedrol) 80 mg Q8H IV 04/09/19 23:00 04/16/19 07:59 DC 04/16/19 06:23 Miscellaneous (Unresolved Clarification Entry) SEE LABEL COMMENTS DAILY XX 04/20/19 09:00 Morphine Sulfate (Morphine Sulfate Inj) 2 mg Q4HP PRN IV PAIN 04/09/19 15:15 04/10/19 00:51 DC 04/09/19 21:43 Morphine Sulfate (Morphine Sulfate Inj) 4 mg Q2HP PRN IV SEVERE PAIN (PS 8-10) 04/17/19 23:30 04/18/19 11:56 DC 04/18/19 11:02 Morphine Sulfate (Morphine Sulfate Inj) 4 mg Q4HP PRN IV SEVERE PAIN (PS 8-10) 04/10/19 01:00 04/17/19 23:26 DC 04/17/19 21:03 Morphine Sulfate (Morphine Sulfate Inj) 4 mg STAT STAT IV 04/10/19 00:47 04/10/19 00:49 DC 04/10/19 00:56 Multivitamins 10 ml/Chromium/ Copper/Manganese/ Seleni/Zn 1 ml/ Amino Ac/Electrol/ Dextrose/Calcium 2,011 ml @ 75 mls/hr ONCE@1800 IV 04/18/19 18:00 04/19/19 17:59 DC 04/18/19 18:16 Ondansetron HCl (ZOFRAN INJection) 4 mg Q4HP PRN IV NAUSEA OR VOMITING 04/19/19 20:30 04/19/19 21:30 DC Ondansetron HCl (ZOFRAN INJection) 8 mg Q6HP PRN IV NAUSEA OR VOMITING 04/09/19 15:15 04/19/19 07:59 Phenol (Chloraseptic Carmel) 1 spray Q2HP PRN MT SORE THROAT 04/18/19 10:15 04/18/19 20:43 Piperacillin Sod/ Tazobactam Sod 4.5 gm/Dextrose 50 ml @ 50 mls/hr Q8H IV 04/10/19 16:00 04/20/19 08:06 Polyethylene Glycol (Miralax) 1 pkt BID PO 04/15/19 09:00 04/19/19 19:40 DC 04/17/19 09:10 Prednisone (Deltasone) 40 mg DAILY NG 04/18/19 09:00 04/18/19 09:00 DC Simethicone (Mylicon) 120 mg TIDP PRN PO GAS PAIN 04/18/19 10:15 04/18/19 20:43 Sodium Chloride 1,000 ml @ 200 mls/hr Q5H IV 04/17/19 18:15 04/20/19 08:06 Sodium Chloride (Saline Lock Flush) 10 ML PICC IV 04/18/19 18:00 Sodium Chloride (Saline Lock Flush) 10ML ASDIRECTED PRN IV SEE LABEL COMMENTS 04/18/19 17:15 Allergies Coded Allergies: No Known Allergies (Unverified , 02/24/19) Objective Physical Examination Examination GENERAL APPEARANCE:[Patient seen, laying in bed, awake, alert, and oriented. Comfortable, in no acute distress]. SKIN: [Warm and moist]. HEENT: [Normocephalic, atraumatic. Duarte palpebral conjunctiva, anicteric sclerae. Lips and mucosa appear moist]. NECK: [Supple, no thyromegaly. No obvious jugular venous distention]. LUNGS: [Clear to auscultation bilaterally. No wheezing appreciated]. HEART: [No chest wall abnormalities. Regular rate and rhythm with no murmurs appreciated]. ABDOMEN: Abdomen is , soft, . [No hepatosplenomegaly. No umbilical or groin herniations, nondistended. No noticeable rebound or guarding. No grimacing with palpation. No rebound tenderness. No masses appreciated]. EXTREMITIES: [Extremities have no deformities. No edema identified]. Vital Signs Vital Signs Date Time Temp Pulse Resp B/P (MAP) Pulse Ox O2 Delivery O2 Flow Rate FiO2 04/20/19 10:00 96.0 79 16 95/50 (65) 95 04/20/19 08:00 0.5 I&Os I&O- Last 24 Hours up to 6 AM 04/20/19 06:00 Intake Total 4200 ml Output Total 2650 ml Balance 1550 ml Laboratory Data Labs 24H Laboratory Tests 2 04/19/19 11:17: Bedside Glucose (Misc Panel) 167H 04/20/19 00:04: Bedside Glucose (Misc Panel) 182H 04/20/19 06:26: Bedside Glucose (Misc Panel) 174H 04/20/19 07:23: Nucleated Red Blood Cells % (auto) 0.0, Anion Gap 4L, Glomerular Filtration Rate > 60.0, Blood Urea Nitrogen 26H, Creatinine 0.70, Sodium Level 137, Potassium Level 4.2, Chloride Level 105, Carbon Dioxide Level 28, Calcium Level 7.5L, Aspartate Amino Transf (AST/SGOT) 17, Alanine Aminotransferase (ALT/SGPT) 26, Alkaline Phosphatase 62, Total Bilirubin 0.7, Total Protein 3.5L, Albumin 0.9L, Magnesium Level 2.0, Albumin/Globulin Ratio 0.35L CBC/BMP Laboratory Tests 04/20/19 07:23 Red Blood Count 4.38, Mean Corpuscular Volume 84.2, Mean Corpuscular Hemoglobin 28.1, Mean Corpuscular Hemoglobin Concent 33.3, Red Cell Distribution Width 13.9, Calcium Level 7.5 L, Aspartate Amino Transf (AST/SGOT) 17, Alanine Aminotransferase (ALT/SGPT) 26, Alkaline Phosphatase 62, Total Bilirubin 0.7, Total Protein 3.5 L, Albumin 0.9 L Microbiology Microbiology 04/19/19 Anaerobic Culture, Received Pending 04/19/19 Gram Stain - Final, Resulted 04/19/19 Abscess Culture, Resulted Pending Impression Crohns disease Small bowel obstruction POD1 Ex Lap lysis of adhesion, small bowel resection with ileostomy Plan / VTE VTE Prophylaxis Ordered?: Yes NIKKO BENNETT MD Apr 20, 2019 11:14
--- NOTE | 2019-04-20 11:29 | IPNPDOC ---
Subjective Date Seen The patient was seen on 04/20/19. Subjective Chief Complaint/HPI Patient seen and examined at the bedside. Patient is s/p Ex Lap Lysis of Adhesions, Small Bowel Resection with Ileostomy. Reports that his pain is much better controlled this morning. He has remained hemodynamically stable overnight. Objective Physical Examination General Exam: Positive: Alert, Cooperative, Mild Distress (2/2 recent surgical intervention) ENT Exam: Positive: Atraumatic, Mucous membr. moist/pink Neck Exam: Negative: JVD Chest Exam: Positive: Clear to auscultation, Normal air movement; Negative: Rales, Rhonchi, Wheezing Heart Exam: Positive: Rate Normal, Regular Rhythm, Normal S1, Normal S2 Abdomen Exam: Positive: Soft, Tenderness, Other (surgical dressing noted to be placed on the central abdominal wall vertically. Right lower quadrant ileostomy noted.) Extremity Exam: Negative: Tenderness, Swelling Neuro Exam: Positive: Normal Speech Psych Exam: Positive: Mental status NL, Mood NL, Oriented x 3 Assessment /Plan Plan/VTE VTE Prophylaxis Ordered?: Yes Plan SBO with underlying crohns disease and stricture s/p Ex Lap Lysis of Adhesions, Small Bowel Resection with Ileostomy on 04/[address] Aguilera of Gen Surg Cont IV Zosyn, pain control as ordered Cont IVF Hydration, TPN as ordered We will follow up with Gen Surg recommendations Crohns Disease Continue with zosyn Patient counseled extensively to follow-up with GI as an outpatient for continued therapy. DVT Prophylaxis Lovenox SC Dispo--pending clinical improvement. VS, I&O, 24H, Fishbone Vital Signs/I&O Vital Signs Date Time Temp Pulse Resp B/P (MAP) Pulse Ox O2 Delivery O2 Flow Rate FiO2 04/20/19 10:00 96.0 79 16 95/50 (65) 95 04/20/19 08:00 0.5 I&O- Last 24 Hours up to 6 AM 04/20/19 06:00 Intake Total 4200 ml Output Total 2650 ml Balance 1550 ml Laboratory Data 24H LABS Laboratory Tests 2 04/20/19 00:04: Bedside Glucose (Misc Panel) 182H 04/20/19 06:26: Bedside Glucose (Misc Panel) 174H 04/20/19 07:23: Nucleated Red Blood Cells % (auto) 0.0, Anion Gap 4L, Glomerular Filtration Rate > 60.0, Blood Urea Nitrogen 26H, Creatinine 0.70, Sodium Level 137, Potassium Level 4.2, Chloride Level 105, Carbon Dioxide Level 28, Calcium Level 7.5L, Aspartate Amino Transf (AST/SGOT) 17, Alanine Aminotransferase (ALT/SGPT) 26, Alkaline Phosphatase 62, Total Bilirubin 0.7, Total Protein 3.5L, Albumin 0.9L, Magnesium Level 2.0, Albumin/Globulin Ratio 0.35L CBC/BMP Laboratory Tests 04/20/19 07:23 Red Blood Count 4.38, Mean Corpuscular Volume 84.2, Mean Corpuscular Hemoglobin 28.1, Mean Corpuscular Hemoglobin Concent 33.3, Red Cell Distribution Width 13.9, Calcium Level 7.5 L, Aspartate Amino Transf (AST/SGOT) 17, Alanine Aminotransferase (ALT/SGPT) 26, Alkaline Phosphatase 62, Total Bilirubin 0.7, Total Protein 3.5 L, Albumin 0.9 L Microbiology Microbiology 04/19/19 Anaerobic Culture, Received Pending 04/19/19 Gram Stain - Final, Resulted 04/19/19 Abscess Culture, Resulted Pending RADHA GARCIA MD Apr 20, 2019 11:29
[2019-04-20] MEDS ORDERED: AMINO AC/ELECTROLYTE/DEX/CALC 2,000 ML IV SCH (18:00)
[2019-04-20] MEDS ORDERED: FAT EMULSION IV 20% 500 ML IV SCH (18:00)
[2019-04-20] MEDS: ENOXAPARIN 40 MG/0.4 ML SYRINGE (J1650) SC SCH (18:20)
[2019-04-21] MEDS: KETOROLAC 30 MG/ML VIAL (J1885) IV SCH ×4 (01:43→20:09)
[2019-04-21] MEDS: HYDROMORPHONE HCL 0.5 MG/ 0.5 ML SYRINGE (J1170 PER 1) IV PRN ×4 (04:14→23:37)
[2019-04-21 06:00] VITALS: BP 96/56
[2019-04-21 06:35] LABS: HEMOGLOBIN 9.6 g/dl (13.5-17.5); MEAN CORPUSCULAR HEMOGLOBIN 27.3 pg (27.0-33.0); MEAN CORPUSCULAR HGB CONC 33.1 g/dl (32.0-36.5); MEAN CORPUSCULAR VOLUME 82.4 fl (80.0-96.0); PLATELET COUNT, AUTOMATED 238 10^3/uL (150-450); RED BLOOD COUNT 3.52 10^6/uL (4.30-6.10); WHITE BLOOD COUNT 17.1 10^3/uL (4.0-10.0)
[2019-04-21 06:57] LABS: BLOOD UREA NITROGEN 22 MG/DL (7-18); CALCIUM LEVEL 7.5 MG/DL (8.5-10.1); CARBON DIOXIDE LEVEL 30 MEQ/L (21-32); CHLORIDE LEVEL 103 MEQ/L (98-107); CREATININE FOR GFR 0.69 MG/DL (0.70-1.30); GLOMERULAR FILTRATION RATE > 60.0 (>60); GLUCOSE, FASTING 117 MG/DL (70-100); MAGNESIUM LEVEL 2.1 MG/DL (1.8-2.4); POTASSIUM SERUM 3.4 MEQ/L (3.5-5.1); SODIUM LEVEL 139 MEQ/L (136-145)
[2019-04-21] MEDS: HumaLOG INSULIN (NovoLOG) PER UNIT SC SCH ×4 (07:05→23:38)
--- NOTE | 2019-04-21 08:07 | IPNPDOC ---
Text Note Date of Service The patient was seen on 04/21/19. NOTE No acute events overnight. He did have a SBR with end ileostomy over the week end. He is passing gas and large volume stool through the ostomy. He is complaining of some pain, but he did get up and walk yesterday. VSSAF NAD abd - soft, less distended, tender to palpation appropriate, ostomy with bilious succus in the bag, drain with serosanguinous output labs - see below A) 33y/o male with hep C and a crohns exacerbation resulting in distal SBO that is not resolving POD#2 s/p resection with end ileostomy P) ambulate clamp NGT sips and chips steroids laxatives will dc NGT and start clears tonight if tolerating it clamped all day Diallo Castro DO VS,Kimberlyn, I+O VS, Kimberlyn, I+O Laboratory Tests 04/21/19 05:05 Red Blood Count 3.52 L, Mean Corpuscular Volume 82.4, Mean Corpuscular Hemoglobin 27.3, Mean Corpuscular Hemoglobin Concent 33.1, Red Cell Distribution Width 13.7, Calcium Level 7.5 L Vital Signs Date Time Temp Pulse Resp B/P (MAP) Pulse Ox O2 Delivery O2 Flow Rate FiO2 04/21/19 06:00 97.7 69 18 96/56 (69) 96 04/20/19 08:00 0.5 I&O- Last 24 Hours up to 6 AM 04/21/19 06:00 Intake Total 4645 ml Output Total 3430 ml Balance 1215 ml JORGE CASTRO DO Apr 21, 2019 08:07
[2019-04-21] MEDS: NS 1,000 ML IV SCH ×2 (08:45)
[2019-04-21] MEDS: PIPERACILLIN/TAZOBACTAM SOD 4.5 GM in D5W MINI-BAG PLUS 50 ML IV SCH ×3 (08:46→23:37)
[2019-04-21] MEDS: MORPHINE 4 MG/ML 1ML VIAL/SYRINGE (J2270) IV PRN ×3 (08:47→17:33)
[2019-04-21] MEDS ORDERED: ACETAMINOPHEN *IV* 1,000 MG in APPROPRIATE DILUENT 1 EA IV ONE (10:45)
--- NOTE | 2019-04-21 11:12 | IPNPDOC ---
Subjective Date Seen The patient was seen on 04/21/19. Subjective Chief Complaint/HPI Patient seen and examined at the bedside. Reports that he is continuing to feel better. He has been started on sips of ice and water by general surgery. No acute overnight events noted. Objective Physical Examination General Exam: Positive: Alert, Cooperative, No Acute Distress ENT Exam: Positive: Atraumatic, Mucous membr. moist/pink Neck Exam: Negative: JVD Chest Exam: Positive: Clear to auscultation, Normal air movement; Negative: Rales, Rhonchi, Wheezing Heart Exam: Positive: Rate Normal, Regular Rhythm, Normal S1, Normal S2 Abdomen Exam: Positive: Soft, Tenderness, Other (surgical dressing noted to be placed on the central abdominal wall vertically. Right lower quadrant ileostomy noted.) Extremity Exam: Negative: Tenderness, Swelling Neuro Exam: Positive: Normal Speech Psych Exam: Positive: Mental status NL, Mood NL, Oriented x 3 Assessment /Plan Plan/VTE VTE Prophylaxis Ordered?: Yes Plan SBO with underlying crohns disease and stricture s/p Ex Lap Lysis of Adhesions, Small Bowel Resection with Ileostomy on 04/[address] Aguilera of Gen Surg Cont IV Zosyn, pain control as ordered Cont IVF Hydration, TPN ordered Started on sips of water and ice chips as per Gen Surg, NG Tube clamped We will follow up with Gen Surg recommendations Crohns Disease Continue with zosyn Patient counseled extensively to follow-up with GI as an outpatient for continued therapy. DVT Prophylaxis Lovenox SC Dispo--pending clinical improvement. VS, I&O, 24H, Fishbone Vital Signs/I&O Vital Signs Date Time Temp Pulse Resp B/P (MAP) Pulse Ox O2 Delivery O2 Flow Rate FiO2 04/21/19 10:34 18 04/21/19 06:00 97.7 69 96/56 (69) 96 04/20/19 08:00 0.5 I&O- Last 24 Hours up to 6 AM 04/21/19 05:59 Intake Total 5350 ml Output Total 3430 ml Balance 1920 ml Laboratory Data 24H LABS Laboratory Tests 2 04/20/19 11:51: Bedside Glucose (Misc Panel) 150H 04/20/19 18:16: Bedside Glucose (Misc Panel) 148H 04/20/19 23:43: Bedside Glucose (Misc Panel) 111H 04/21/19 05:05: Nucleated Red Blood Cells % (auto) 0.0, Anion Gap 6L, Glomerular Filtration Rate > 60.0, Blood Urea Nitrogen 22H, Creatinine 0.69L, Sodium Level 139, Potassium Level 3.4L, Chloride Level 103, Carbon Dioxide Level 30, Calcium Level 7.5L, Magnesium Level 2.1 CBC/BMP Laboratory Tests 04/21/19 05:05 Red Blood Count 3.52 L, Mean Corpuscular Volume 82.4, Mean Corpuscular Hemoglobin 27.3, Mean Corpuscular Hemoglobin Concent 33.1, Red Cell Distribution Width 13.7, Calcium Level 7.5 L Microbiology Microbiology 04/19/19 Anaerobic Culture - Final, Complete 04/19/19 Gram Stain - Final, Complete 04/19/19 Abscess Culture - Final, Complete RADHA GARCIA MD Apr 21, 2019 11:12
[2019-04-21] MEDS ORDERED: ACETAMINOPHEN 325 MG/10.15 ML UDC PO ONE (11:15)
--- NOTE | 2019-04-21 11:19 | REP ---
PICC line insertion under ultrasound guidance. The procedure was performed by KLEVER Baig, under the direct supervision of Dr. Garcia. The risks and benefits of the procedure were explained to the patient and informed consent was obtained the verbally and written. Directly prior to the start of the procedure, a formal timeout was completed in the procedure room. The right basilic vein was localized using ultrasound guidance. The skin was prepped and draped in the sterile fashion. 2 ml 1% lidocaine was used as a local anesthetic. Using ultrasound guidance the right basilic vein was cannulated and a 0.018 guidewire was inserted and advanced to the SVC using fluoroscopic guidance. The needle was removed and a 5.5 Upper Sorbian dilator and peel-away sheath was inserted over the guidewire. A 5.5 Upper Sorbian double lumen catheter was cut to the length of 35 cm. The dilator was removed and the catheter was inserted over the guide wire with the tip ending in the SVC. The peel-away sheath was removed and the catheter was flushed with heparinized saline as per hospital protocol. The catheter was affixed to the skin and a sterile dressing was applied. The patient tolerated the procedure well and there were no immediate complications. 0.2 minutes of fluoroscopy time was utilized for this procedure. Some fluoroscopic images are performed with last image hold technology. These images require no additional radiation. Reviewed by KLEVER Bergeron 04/18/2019 04:43 P Electronically Signed by Austin Garcia MD 04/21/2019 11:10 A
[2019-04-21] MEDS ORDERED: PERCOCET 5MG/325MG TAB PO PRN (11:45)
--- NOTE | 2019-04-21 12:23 | IPNPDOC ---
Text Note Date of Service The patient was seen on 04/21/19. NOTE Patient was already seen with Dr. Castro early this morning with plans for cl amping the NG tube today and possibly removing it later on today. He looks comfortable and is ambulating in the room and even emptied out his ileostomy bag by himself. He denies any nausea. His ADDY drainage is putting out serosanguineous fluid. Plans: I renewed his TPN. Have started him on Percocets to try to wean him off the Dilaudid and made a Dilaudid every 6 are since that of every 3 hours as needed. He'll continue on Toradol. Continue antibiotics pending microbiology results. VS,Fishbone, I+O VS, Fishbone, I+O Laboratory Tests 04/21/19 05:05 Red Blood Count 3.52 L, Mean Corpuscular Volume 82.4, Mean Corpuscular Hemoglobin 27.3, Mean Corpuscular Hemoglobin Concent 33.1, Red Cell Distribution Width 13.7, Calcium Level 7.5 L Vital Signs Date Time Temp Pulse Resp B/P (MAP) Pulse Ox O2 Delivery O2 Flow Rate FiO2 04/21/19 11:23 69 18 96 0.5 04/21/19 06:00 97.7 96/56 (69) I&O- Last 24 Hours up to 6 AM 04/21/19 06:00 Intake Total 4645 ml Output Total 3430 ml Balance 1215 ml NIKKO BENNETT MD Apr 21, 2019 12:23
[2019-04-21 14:00] VITALS: BP 103/58
[2019-04-21] MEDS: SODIUM CHLORIDE 0.9% INJ 10 ML SYR IV SCH (17:03)
[2019-04-21] MEDS: ENOXAPARIN 40 MG/0.4 ML SYRINGE (J1650) SC SCH (17:40)
[2019-04-21] MEDS ORDERED: FAT EMULSION IV 20% 500 ML IV SCH (18:00)
[2019-04-21] MEDS ORDERED: MULTIVITAMIN -ADULT INJECTION 10 ML, CR/CU/SE/MN/ZN INJ 1 ML, POTASSIUM CHLORIDE INJ 40... IV SCH ×4 (18:00)
[2019-04-21 22:00] VITALS: BP 140/63
[2019-04-21] MEDS: PERCOCET 5MG/325MG TAB PO PRN (22:26)
[2019-04-22] MEDS: KETOROLAC 30 MG/ML VIAL (J1885) IV SCH ×4 (01:10→20:14)
[2019-04-22] MEDS: PERCOCET 5MG/325MG TAB PO PRN ×4 (02:45→23:46)
[2019-04-22] MEDS: SODIUM CHLORIDE 0.9% INJ 10 ML SYR IV SCH ×3 (05:08→23:49)
[2019-04-22] MEDS: MORPHINE 4 MG/ML 1ML VIAL/SYRINGE (J2270) IV PRN (05:51)
[2019-04-22 06:00] VITALS: BP 129/73
[2019-04-22 06:08] LABS: HEMATOCRIT 33.2 % (42.0-52.0); HEMOGLOBIN 10.8 g/dl (13.5-17.5); MEAN CORPUSCULAR HEMOGLOBIN 28.1 pg (27.0-33.0); MEAN CORPUSCULAR HGB CONC 32.5 g/dl (32.0-36.5); MEAN CORPUSCULAR VOLUME 86.2 fl (80.0-96.0); PLATELET COUNT, AUTOMATED 250 10^3/uL (150-450); RED BLOOD COUNT 3.85 10^6/uL (4.30-6.10); WHITE BLOOD COUNT 12.8 10^3/uL (4.0-10.0)
[2019-04-22 06:25] LABS: BLOOD UREA NITROGEN 13 MG/DL (7-18); CALCIUM LEVEL 8.2 MG/DL (8.5-10.1); CARBON DIOXIDE LEVEL 30 MEQ/L (21-32); CHLORIDE LEVEL 102 MEQ/L (98-107); GLOMERULAR FILTRATION RATE > 60.0 (>60); GLUCOSE, FASTING 104 MG/DL (70-100); POTASSIUM SERUM 3.8 MEQ/L (3.5-5.1); SODIUM LEVEL 137 MEQ/L (136-145)
[2019-04-22] MEDS: HumaLOG INSULIN (NovoLOG) PER UNIT SC SCH ×2 (06:42→13:20)
[2019-04-22] MEDS: PIPERACILLIN/TAZOBACTAM SOD 4.5 GM in D5W MINI-BAG PLUS 50 ML IV SCH ×3 (08:16→23:49)
[2019-04-22] MEDS: HYDROMORPHONE HCL 0.5 MG/ 0.5 ML SYRINGE (J1170 PER 1) IV PRN (09:55)
--- NOTE | 2019-04-22 12:54 | IPNPDOC ---
Subjective General Date/Time Seen The patient was seen on 04/22/19 at 12:52. Subject Chief Complaint/History The patient is a 33-year-old male admitted with a reason for visit of Crohns Disease Of Small Intestine,Small Bowel Obst. He reports he continues to feel better. He's been tolerating clear liquids. He is denying any nausea. He is having a lot of output from his ileostomy. He is taking care of his ileostomy himself though he has not had a chance to change his ileostomy appliance since surgery. His ADDY drainage is mainly serous sanguinous. He has been ambulating in the room independently. Current Medications Current Medications Current Medications Medications (Trade) Dose Ordered Sig/Roger Route PRN Reason Start Time Stop Time Status Last Admin Dose Admin Acetaminophen (Tylenol Suspension) 1,000 mg Q12HP PRN PO PAIN OR FEVER 04/17/19 11:45 04/18/19 07:18 DC 04/18/19 01:03 Acetaminophen 1000 mg/IV Miscellaneous Supplies 100 ml @ 400 mls/hr BIDP PRN IV PAIN 04/18/19 11:45 04/18/19 12:46 DC Acetaminophen 1000 mg/IV Miscellaneous Supplies 100 ml @ 400 mls/hr Q12HP PRN IV Pain, Fever 04/17/19 11:15 04/17/19 11:32 DC Amino Ac/Electrol/ Dextrose/Calcium 2,000 ml @ 75 mls/hr ONCE@1800 IV 04/19/19 18:00 04/20/19 17:59 DC 04/19/19 21:46 Amino Ac/Electrol/ Dextrose/Calcium 2,000 ml @ 75 mls/hr ONCE@1800 IV 04/20/19 18:00 04/21/19 17:59 DC 04/20/19 17:58 Amino Ac/Electrol/ Dextrose/Calcium 2,000 ml @ 75 mls/hr ONCE@1800 IV 04/17/19 18:00 04/17/19 18:00 DC Dextrose/Sodium Chloride 1,000 ml @ 100 mls/hr Q10H IV 04/09/19 15:15 04/16/19 07:59 DC 04/16/19 05:47 Enoxaparin Sodium (Lovenox) 40 mg DAILY@1800 SC 04/09/19 18:00 04/21/19 17:40 Fat Emulsion Intravenous 500 ml @ 20 mls/hr ONCE@1800 IV 04/19/19 18:00 04/20/19 17:59 DC 04/19/19 21:46 Fat Emulsion Intravenous 500 ml @ 20 mls/hr ONCE@1800 IV 04/20/19 18:00 04/21/19 17:59 DC 04/20/19 17:58 Fat Emulsion Intravenous 500 ml @ 20 mls/hr ONCE@1800 IV 04/21/19 18:00 04/22/19 17:59 04/21/19 17:32 Fat Emulsion Intravenous 500 ml @ 20 mls/hr ONCE@1800 IV 04/17/19 18:00 04/17/19 18:00 DC Fat Emulsion Intravenous 500 ml @ 20 mls/hr ONCE@1800 IV 04/18/19 18:00 04/19/19 17:59 DC 04/18/19 18:17 Fentanyl Citrate (Sublimaze) 25 mcg Q5MP PRN IV MODERATE PAIN (PS 4-7) 04/19/19 20:30 04/19/19 21:30 DC Heparin Sodium (Heparin (Flush)) 200 units ASDIRECTED PRN IV SEE LABEL COMMENTS 04/18/19 17:15 Heparin Sodium (Heparin (Flush)) 200 units PICC IV 04/18/19 18:00 Home Med (Med Rec Complete!) ASDIRECTED XX 04/09/19 15:15 04/09/19 15:15 DC Hydromorphone HCl (Dilaudid) 0.4 mg Q5MP PRN IV MODERATE/SEVERE PAIN (PS 5-10) 04/19/19 20:30 04/19/19 21:30 DC Hydromorphone HCl (Dilaudid) 1 mg Q3HP PRN IV MILD PAIN (PS 1-4) 04/18/19 12:00 04/21/19 11:47 DC 04/21/19 10:34 Hydromorphone HCl (Dilaudid) 1 mg Q6HP PRN IV SEVERE PAIN (PS 8-10) 04/21/19 12:00 04/28/19 11:59 04/22/19 09:55 Hydromorphone HCl (Dilaudid) 1.6 mg Q3HP PRN IV MODERATE/SEVERE PAIN (PS 5-10) 04/18/19 12:00 04/20/19 11:13 DC 04/19/19 14:47 Insulin Human Lispro (HumaLOG INSULIN) See Protocol Table Q6H [place] 04/19/19 18:00 04/20/19 12:01 DC 04/20/19 12:08 Insulin Human Lispro (HumaLOG INSULIN) See Protocol Table Q6H [place] 04/20/19 18:00 04/21/19 12:01 DC 04/21/19 12:24 Insulin Human Lispro (HumaLOG INSULIN) See Protocol Table Q6H [place] 04/21/19 18:00 04/22/19 12:01 DC 04/22/19 06:42 Insulin Human Lispro (HumaLOG INSULIN) See Protocol Table Q6H [place] 04/17/19 18:00 04/17/19 18:00 DC Insulin Human Lispro (HumaLOG INSULIN) See Protocol Table Q6H [place] 04/18/19 18:00 04/19/19 12:01 DC 04/19/19 11:42 Ketorolac Tromethamine (ToRADol) 30 mg Q6H IV 04/19/19 20:00 04/24/19 19:59 04/22/19 08:16 Ketorolac Tromethamine (ToRADol) 30 mg Q6HP IV 04/17/19 23:00 04/17/19 23:00 DC Ketorolac Tromethamine (ToRADol) 30 mg Q6HP PRN IV PAIN 04/17/19 23:00 04/18/19 07:18 DC 04/18/19 05:12 Lactated Ringer's 1,000 ml @ 100 mls/hr Q10H IV 04/19/19 20:30 04/19/19 21:30 DC Methylprednisolone (SOLU medrol) 40 mg Q8H IV 04/16/19 15:00 04/17/19 11:11 DC 04/17/19 05:38 Methylprednisolone (SOLUmedrol) 80 mg Q8H IV 04/09/19 23:00 04/16/19 07:59 DC 04/16/19 06:23 Miscellaneous (Unresolved Clarification Entry) SEE LABEL COMMENTS DAILY XX 04/20/19 09:00 04/20/19 11:17 DC Morphine Sulfate (Morphine Sulfate Inj) 2 mg Q2HP PRN IV BREAKTHROUGH PAIN 04/21/19 08:15 04/22/19 05:51 Morphine Sulfate (Morphine Sulfate Inj) 2 mg Q4HP PRN IV PAIN 04/09/19 15:15 04/10/19 00:51 DC 04/09/19 21:43 Morphine Sulfate (Morphine Sulfate Inj) 4 mg Q2HP PRN IV SEVERE PAIN (PS 8-10) 04/17/19 23:30 04/18/19 11:56 DC 04/18/19 11:02 Morphine Sulfate (Morphine Sulfate Inj) 4 mg Q4HP PRN IV SEVERE PAIN (PS 8-10) 04/10/19 01:00 04/17/19 23:26 DC 04/17/19 21:03 Morphine Sulfate (Morphine Sulfate Inj) 4 mg STAT STAT IV 04/10/19 00:47 04/10/19 00:49 DC 04/10/19 00:56 Multivitamins 10 ml/Chromium/ Copper/Manganese/ Seleni/Zn 1 ml/ Amino Ac/Electrol/ Dextrose/Calcium 2,011 ml @ 75 mls/hr ONCE@1800 IV 04/18/19 18:00 04/19/19 17:59 DC 04/18/19 18:16 Multivitamins 10 ml/Chromium/ Copper/Manganese/ Seleni/Zn 1 ml/ Potassium Chloride 40 meq/ Amino Ac/Electrol/ Dextrose/Calcium 2,031 ml @ 75 mls/hr ONCE@1800 IV 04/21/19 18:00 04/22/19 17:59 04/21/19 17:31 Ondansetron HCl (ZOFRAN INJection) 4 mg Q4HP PRN IV NAUSEA OR VOMITING 04/19/19 20:30 04/19/19 21:30 DC Ondansetron HCl (ZOFRAN INJection) 8 mg Q6HP PRN IV NAUSEA OR VOMITING 04/09/19 15:15 04/19/19 07:59 Oxycodone/ Acetaminophen (Percocet 5mg/ 325mg Tablet) 1 tab Q4HP PRN PO MILD/MODERATE PAIN (PS 1-7) 04/21/19 11:45 Oxycodone/ Acetaminophen (Percocet 5mg/ 325mg Tablet) 2 tab Q4HP PRN PO SEVERE PAIN (PS 8-10) 04/21/19 11:45 04/22/19 08:15 Phenol (Chloraseptic [place]) 1 spray Q2HP PRN MT SORE THROAT 04/18/19 10:15 04/18/19 20:43 Piperacillin Sod/ Tazobactam Sod 4.5 gm/Dextrose 50 ml @ 50 mls/hr Q8H IV 04/10/19 16:00 04/22/19 08:16 Polyethylene Glycol (Miralax) 1 pkt BID PO 04/15/19 09:00 04/19/19 19:40 DC 04/17/19 09:10 Prednisone (Deltasone) 40 mg DAILY NG 04/18/19 09:00 04/18/19 09:00 DC Simethicone (Mylicon) 120 mg TIDP PRN PO GAS PAIN 04/18/19 10:15 04/18/19 20:43 Sodium Chloride 1,000 ml @ 100 mls/hr Q10H IV 04/17/19 18:15 04/21/19 11:47 DC 04/21/19 08:45 Sodium Chloride (Saline Lock Flush) 10 ML PICC IV 04/18/19 18:00 Sodium Chloride (Saline Lock Flush) 10ML ASDIRECTED PRN IV SEE LABEL COMMENTS 04/18/19 17:15 Allergies Coded Allergies: No Known Allergies (Unverified , 02/24/19) Objective Physical Examination Examination GENERAL APPEARANCE: Comfortable. SKIN: Warm and dry. HEENT: Normocephalic, atraumatic. [place] palpebral conjunctiva, anicteric sclerae. Lips and mucosa appear moist. NECK: Supple, no thyromegaly. No obvious jugular venous distention. LUNGS: Clear to auscultation bilaterally. No wheezing appreciated. HEART: No chest wall abnormalities. Regular rate and rhythm with no murmurs appreciated. ABDOMEN: Abdomen is minimally distended, soft, midline incision dressings were removed. The Telfa mark were removed, slight bruising in between the staple lines from the Telfa mark but no gross purulent drainage. ADDY drain is light pink serosanguineous. His ileostomy swollen but functioning. Minimally tender on palpation at the incision. EXTREMITIES: No edema. Vital Signs Vital Signs Date Time Temp Pulse Resp B/P (MAP) Pulse Ox O2 Delivery O2 Flow Rate FiO2 04/22/19 10:05 20 04/22/19 06:01 95 04/22/19 06:00 97.8 69 129/73 (91) 04/21/19 13:10 0.5 I&Os I&O- Last 24 Hours up to 6 AM 04/22/19 06:00 Intake Total 2755 ml Output Total 1550 ml Balance 1205 ml Laboratory Data Labs 24H Laboratory Tests 2 04/21/19 16:32: Bedside Glucose (Misc Panel) 93 04/21/19 23:36: Bedside Glucose (Misc Panel) 97 04/22/19 05:55: Nucleated Red Blood Cells % (auto) 0.0, Anion Gap 5L, Glomerular Filtration Rate > 60.0, Blood Urea Nitrogen 13, Creatinine 0.80, Sodium Level 137, Potassium Level 3.8, Chloride Level 102, Carbon Dioxide Level 30, Calcium Level 8.2L 04/22/19 11:25: Bedside Glucose (Misc Panel) 120H CBC/BMP Laboratory Tests 04/22/19 05:55 Red Blood Count 3.85 L, Mean Corpuscular Volume 86.2, Mean Corpuscular Hemoglobin 28.1, Mean Corpuscular Hemoglobin Concent 32.5, Red Cell Distribution Width 13.8, Calcium Level 8.2 L Microbiology Microbiology 04/19/19 Anaerobic Culture - Final, Complete 04/19/19 Gram Stain - Final, Complete 04/19/19 Abscess Culture - Final, Complete Impression Crohn's disease Small bowel obstruction postop day 3 expiratory laparotomy, small bowel resection with ileostomy He continues to do well and is having a good amount of output from his ileostomy. His abdomen is relatively flat. We'll start him on some low residue diet and see how he tolerates this. I'll add some Metamucil to congeal the output no [place] decrease the output to as he will be at risk of dehydration outside for high output. I reviewed his medication treatment is not on any treatment for the Crohn's disease this point. Presumably the involved areas of the Crohn's disease has all been resected. I think it'll be worthwhile to ask gastroenterology if he needs to be on some maintenance medications for the Crohn's disease. He continues on Zosyn. I'm awaiting final ultrasound from the intraoperative findings. His leukocytosis continues to drop. Plan / VTE VTE Prophylaxis Ordered?: Yes NIKKO BENNETT MD Apr 22, 2019 12:54
[2019-04-22] MEDS: METAMUCIL (PSYLLIUM) PACKET PO SCH ×2 (13:19→20:13)
[2019-04-22 14:00] VITALS: BP 112/66
[2019-04-22] MEDS: ENOXAPARIN 40 MG/0.4 ML SYRINGE (J1650) SC SCH (17:51)
--- NOTE | 2019-04-22 18:30 | IPNPDOC ---
Text Note Date of Service The patient was seen on 04/22/19. NOTE S: patient is POD 3 for small bowel resection. He states no abdomen pain. He ate cheese burger and fries today. He is finishing his TPN. he is worried about returning to long-term without osteomy training (osteomy nurse on vacation) and he states he will be released from long-term in 4-6 weeks and plans to move back to [place]. He states ostomy bag is draining and he has been empting it on his own. still requesting pain medications (IV diluadid and po oxycodone). Patient states he using it for LBP from being in bed. He is ambulating in room. Advised when he is discharged, he will not be on pain medications. Patient was tapered off IV steroids on 04/17/19 O: Vitals as below General: pleasant NAD AAOx3 HRRR LCTA Abdomen soft NT ND right ostomy bag with yellow liquid stool; abdomen leland/incision - covered - exam per surgery note Ext: no edema A/P: SBO with underlying crohns disease and stricture s/p Ex Lap Lysis of Adhesions, Small Bowel Resection with Ileostomy on 04/[address] Aguilera of Gen Surg Cont IV Zosyn, D/C dilaudid. D/C TPN Diet advanced per surgery; NGT out; ADDY drain intact; surgery to determine staple removal, etc. We will follow up with Gen Surg recommendations Crohns Disease Continue with zosyn Patient counseled extensively to follow-up with GI as an outpatient for continued therapy. He will need to establish with GI in [place] and states will have his case management social worker from senior care assist. He has been tapered off IV steroids. Currently NOT on immunosuppressants for his crohns while healing from surgery. DVT Prophylaxis Lovenox SC, increase activity Disposition - case management working with senior care regarding ostomy training, supplies, etc. anticipate d/c beginning next week (after leland removed and ostomy training/teaching etc completed). Discussed with nursing staff and they will start showing him the osteomy training videos. VS,Fishbone, I+O VS, Fishbone, I+O Laboratory Tests 04/22/19 05:55 Red Blood Count 3.85 L, Mean Corpuscular Volume 86.2, Mean Corpuscular Hemoglobin 28.1, Mean Corpuscular Hemoglobin Concent 32.5, Red Cell Distribution Width 13.8, Calcium Level 8.2 L Vital Signs Date Time Temp Pulse Resp B/P (MAP) Pulse Ox O2 Delivery O2 Flow Rate FiO2 04/22/19 16:59 18 04/22/19 14:00 98.4 85 112/66 (81) 97 04/21/19 13:10 0.5 I&O- Last 24 Hours up to 6 AM 04/22/19 05:59 Intake Total 3620 ml Output Total 1350 ml Balance 2270 ml MANNY PATTERSON DO Apr 22, 2019 18:30
[2019-04-22 22:00] VITALS: BP 114/67
[2019-04-22] MEDS: ACETAMINOPHEN 500 MG TAB PO SCH (22:42)
[2019-04-23] MEDS: KETOROLAC 30 MG/ML VIAL (J1885) IV SCH ×2 (00:55→08:03)
[2019-04-23] MEDS: PERCOCET 5MG/325MG TAB PO PRN (03:42)
[2019-04-23] MEDS: ACETAMINOPHEN 500 MG TAB PO SCH ×3 (05:10→21:58)
[2019-04-23] MEDS: SIMETHICONE 80 MG CHEW TAB PO PRN (05:11)
[2019-04-23 06:00] VITALS: BP 123/68
[2019-04-23 06:03] LABS: HEMATOCRIT 34.1 % (42.0-52.0); HEMOGLOBIN 11.2 g/dl (13.5-17.5); MEAN CORPUSCULAR HEMOGLOBIN 28.1 pg (27.0-33.0); MEAN CORPUSCULAR HGB CONC 32.8 g/dl (32.0-36.5); MEAN CORPUSCULAR VOLUME 85.7 fl (80.0-96.0); PLATELET COUNT, AUTOMATED 283 10^3/uL (150-450); RED BLOOD COUNT 3.98 10^6/uL (4.30-6.10); WHITE BLOOD COUNT 12.8 10^3/uL (4.0-10.0)
[2019-04-23 06:11] LABS: BLOOD UREA NITROGEN 12 MG/DL (7-18); CALCIUM LEVEL 8.1 MG/DL (8.5-10.1); CARBON DIOXIDE LEVEL 30 MEQ/L (21-32); CHLORIDE LEVEL 103 MEQ/L (98-107); CREATININE FOR GFR 0.76 MG/DL (0.70-1.30); GLOMERULAR FILTRATION RATE > 60.0 (>60); GLUCOSE, FASTING 86 MG/DL (70-100); POTASSIUM SERUM 3.9 MEQ/L (3.5-5.1); SODIUM LEVEL 140 MEQ/L (136-145)
[2019-04-23] MEDS: METAMUCIL (PSYLLIUM) PACKET PO SCH ×2 (08:03→21:58)
[2019-04-23] MEDS: PIPERACILLIN/TAZOBACTAM SOD 4.5 GM in D5W MINI-BAG PLUS 50 ML IV SCH ×2 (08:03→15:34)
[2019-04-23] MEDS: ONDANSETRON 4MG/2ML VIAL (J2405) IV PRN (08:10)
[2019-04-23 14:00] VITALS: BP 117/68
--- NOTE | 2019-04-23 14:05 | IPNPDOC ---
Subjective General Date/Time Seen The patient was seen on 04/23/19 at 14:01. Subject Chief Complaint/History The patient is a 33-year-old male admitted with a reason for visit of Crohns Disease Of Small Intestine,Small Bowel Obst. Patient seen walking independently in the room. He reports he is comfortable. He is complaining of bilateral lower back pain which she tells me he has been having even before the hospital admission. He is denying any abdominal discomfort, nausea or vomiting. He reports a good appetite and denies any nausea or vomiting. He has been afebrile. Current Medications Current Medications Current Medications Medications (Trade) Dose Ordered Sig/Roger Route PRN Reason Start Time Stop Time Status Last Admin Dose Admin Acetaminophen (Tylenol Suspension) 1,000 mg Q12HP PRN PO PAIN OR FEVER 04/17/19 11:45 04/18/19 07:18 DC 04/18/19 01:03 Acetaminophen (Tylenol Tab) 1,000 mg Q8H PO 04/22/19 22:00 04/23/19 05:10 Acetaminophen 1000 mg/IV Miscellaneous Supplies 100 ml @ 400 mls/hr BIDP PRN IV PAIN 04/18/19 11:45 04/18/19 12:46 DC Acetaminophen 1000 mg/IV Miscellaneous Supplies 100 ml @ 400 mls/hr Q12HP PRN IV Pain, Fever 04/17/19 11:15 04/17/19 11:32 DC Amino Ac/Electrol/ Dextrose/Calcium 2,000 ml @ 75 mls/hr ONCE@1800 IV 04/19/19 18:00 04/20/19 17:59 DC 04/19/19 21:46 Amino Ac/Electrol/ Dextrose/Calcium 2,000 ml @ 75 mls/hr ONCE@1800 IV 04/20/19 18:00 04/21/19 17:59 DC 04/20/19 17:58 Amino Ac/Electrol/ Dextrose/Calcium 2,000 ml @ 75 mls/hr ONCE@1800 IV 04/17/19 18:00 04/17/19 18:00 DC Bisacodyl (Dulcolax Suppository) 10 mg Q48H [place] 04/23/19 09:00 Cyclobenzaprine HCl (Flexeril) 10 mg BID PO 04/23/19 09:00 Dextrose/Sodium Chloride 1,000 ml @ 100 mls/hr Q10H IV 04/09/19 15:15 04/16/19 07:59 DC 04/16/19 05:47 Enoxaparin Sodium (Lovenox) 40 mg DAILY@1800 SC 04/09/19 18:00 04/22/19 17:51 Fat Emulsion Intravenous 500 ml @ 20 mls/hr ONCE@1800 IV 04/19/19 18:00 04/20/19 17:59 DC 04/19/19 21:46 Fat Emulsion Intravenous 500 ml @ 20 mls/hr ONCE@1800 IV 04/20/19 18:00 04/21/19 17:59 DC 04/20/19 17:58 Fat Emulsion Intravenous 500 ml @ 20 mls/hr ONCE@1800 IV 04/21/19 18:00 04/22/19 17:59 DC 04/21/19 17:32 Fat Emulsion Intravenous 500 ml @ 20 mls/hr ONCE@1800 IV 04/17/19 18:00 04/17/19 18:00 DC Fat Emulsion Intravenous 500 ml @ 20 mls/hr ONCE@1800 IV 04/18/19 18:00 04/19/19 17:59 DC 04/18/19 18:17 Fentanyl Citrate (Sublimaze) 25 mcg Q5MP PRN IV MODERATE PAIN (PS 4-7) 04/19/19 20:30 04/19/19 21:30 DC Heparin Sodium (Heparin (Flush)) 200 units ASDIRECTED PRN IV SEE LABEL COMMENTS 04/18/19 17:15 Heparin Sodium (Heparin (Flush)) 200 units PICC IV 04/18/19 18:00 04/23/19 00:55 Home Med (Med Rec Complete!) ASDIRECTED XX 04/09/19 15:15 04/09/19 15:15 DC Hydromorphone HCl (Dilaudid) 0.4 mg Q5MP PRN IV MODERATE/SEVERE PAIN (PS 5-10) 04/19/19 20:30 04/19/19 21:30 DC Hydromorphone HCl (Dilaudid) 1 mg Q3HP PRN IV MILD PAIN (PS 1-4) 04/18/19 12:00 04/21/19 11:47 DC 04/21/19 10:34 Hydromorphone HCl (Dilaudid) 1 mg Q6HP PRN IV SEVERE PAIN (PS 8-10) 04/21/19 12:00 04/22/19 18:20 DC 04/22/19 09:55 Hydromorphone HCl (Dilaudid) 1.6 mg Q3HP PRN IV MODERATE/SEVERE PAIN (PS 5-10) 04/18/19 12:00 04/20/19 11:13 DC 04/19/19 14:47 Insulin Human Lispro (HumaLOG INSULIN) See Protocol Table Q6H [place] 04/19/19 18:00 04/20/19 12:01 DC 04/20/19 12:08 Insulin Human Lispro (HumaLOG INSULIN) See Protocol Table Q6H [place] 04/20/19 18:00 04/21/19 12:01 DC 04/21/19 12:24 Insulin Human Lispro (HumaLOG INSULIN) See Protocol Table Q6H [place] 04/21/19 18:00 04/22/19 12:01 DC 04/22/19 13:20 Insulin Human Lispro (HumaLOG INSULIN) See Protocol Table Q6H [place] 04/17/19 18:00 04/17/19 18:00 DC Insulin Human Lispro (HumaLOG INSULIN) See Protocol Table Q6H [place] 04/18/19 18:00 04/19/19 12:01 DC 04/19/19 11:42 Ketorolac Tromethamine (ToRADol) 30 mg Q6H IV 04/19/19 20:00 04/23/19 11:34 DC 04/23/19 08:03 Ketorolac Tromethamine (ToRADol) 30 mg Q6H PRN IV pain not relieved with tylenol 04/23/19 11:45 04/24/19 20:00 Ketorolac Tromethamine (ToRADol) 30 mg Q6HP IV 04/17/19 23:00 04/17/19 23:00 DC Ketorolac Tromethamine (ToRADol) 30 mg Q6HP PRN IV PAIN 04/17/19 23:00 04/18/19 07:18 DC 04/18/19 05:12 Lactated Ringer's 1,000 ml @ 100 mls/hr Q10H IV 04/19/19 20:30 04/19/19 21:30 DC Methylprednisolone (SOLU medrol) 40 mg Q8H IV 04/16/19 15:00 04/17/19 11:11 DC 04/17/19 05:38 Methylprednisolone (SOLUmedrol) 80 mg Q8H IV 04/09/19 23:00 04/16/19 07:59 DC 04/16/19 06:23 Miscellaneous (Unresolved Clarification Entry) SEE LABEL COMMENTS DAILY XX 04/20/19 09:00 04/20/19 11:17 DC Morphine Sulfate (Morphine Sulfate Inj) 2 mg Q2HP PRN IV BREAKTHROUGH PAIN 04/21/19 08:15 04/22/19 14:56 DC 04/22/19 05:51 Morphine Sulfate (Morphine Sulfate Inj) 2 mg Q4HP PRN IV PAIN 04/09/19 15:15 04/10/19 00:51 DC 04/09/19 21:43 Morphine Sulfate (Morphine Sulfate Inj) 4 mg Q2HP PRN IV SEVERE PAIN (PS 8-10) 04/17/19 23:30 04/18/19 11:56 DC 04/18/19 11:02 Morphine Sulfate (Morphine Sulfate Inj) 4 mg Q4HP PRN IV SEVERE PAIN (PS 8-10) 04/10/19 01:00 04/17/19 23:26 DC 04/17/19 21:03 Morphine Sulfate (Morphine Sulfate Inj) 4 mg STAT STAT IV 04/10/19 00:47 04/10/19 00:49 DC 04/10/19 00:56 Multivitamins 10 ml/Chromium/ Copper/Manganese/ Seleni/Zn 1 ml/ Amino Ac/Electrol/ Dextrose/Calcium 2,011 ml @ 75 mls/hr ONCE@1800 IV 04/18/19 18:00 04/19/19 17:59 DC 04/18/19 18:16 Multivitamins 10 ml/Chromium/ Copper/Manganese/ Seleni/Zn 1 ml/ Potassium Chloride 40 meq/ Amino Ac/Electrol/ Dextrose/Calcium 2,031 ml @ 75 mls/hr ONCE@1800 IV 04/21/19 18:00 04/22/19 17:59 DC 04/21/19 17:31 Ondansetron HCl (ZOFRAN INJection) 4 mg Q4HP PRN IV NAUSEA OR VOMITING 04/19/19 20:30 04/19/19 21:30 DC Ondansetron HCl (ZOFRAN INJection) 8 mg Q6HP PRN IV NAUSEA OR VOMITING 04/09/19 15:15 04/23/19 08:10 Oxycodone/ Acetaminophen (Percocet 5mg/ 325mg Tablet) 1 tab Q4HP PRN PO MILD/MODERATE PAIN (PS 1-7) 04/21/19 11:45 Cancel Oxycodone/ Acetaminophen (Percocet 5mg/ 325mg Tablet) 1 tab Q8HP PRN PO MILD/MODERATE PAIN (PS 1-7) 04/22/19 21:45 04/23/19 11:34 DC 04/23/19 03:42 Oxycodone/ Acetaminophen (Percocet 5mg/ 325mg Tablet) 2 tab Q4HP PRN PO SEVERE PAIN (PS 8-10) 04/21/19 11:45 04/22/19 21:46 DC 04/22/19 16:29 Phenol (Chloraseptic [place]) 1 spray Q2HP PRN MT SORE THROAT 04/18/19 10:15 04/18/19 20:43 Piperacillin Sod/ Tazobactam Sod 4.5 gm/Dextrose 50 ml @ 50 mls/hr Q8H IV 04/10/19 16:00 04/23/19 08:03 Polyethylene Glycol (Miralax) 1 pkt BID PO 04/15/19 09:00 04/19/19 19:40 DC 04/17/19 09:10 Prednisone (Deltasone) 40 mg DAILY NG 04/18/19 09:00 04/18/19 09:00 DC Psyllium Hydrophilic Mucilloid (Metamucil) 1 pkt BID PO 04/22/19 09:00 04/23/19 08:03 Simethicone (Mylicon) 120 mg TIDP PRN PO GAS PAIN 04/18/19 10:15 04/23/19 05:11 Sodium Chloride 1,000 ml @ 100 mls/hr Q10H IV 04/17/19 18:15 04/21/19 11:47 DC 04/21/19 08:45 Sodium Chloride (Saline Lock Flush) 10 ML PICC IV 04/18/19 18:00 04/22/19 23:49 Sodium Chloride (Saline Lock Flush) 10ML ASDIRECTED PRN IV SEE LABEL COMMENTS 04/18/19 17:15 Allergies Coded Allergies: No Known Allergies (Unverified , 02/24/19) Objective Physical Examination Examination GENERAL APPEARANCE: Overall looks comfortable. SKIN: Warm and dry. HEENT: Normocephalic, atraumatic. [place] palpebral conjunctiva, anicteric sclerae. Lips and mucosa appear moist. NECK: Supple, no thyromegaly. No obvious jugular venous distention. LUNGS: Clear to auscultation bilaterally. No wheezing appreciated. HEART: No chest wall abnormalities. Regular rate and rhythm with no murmurs appreciated. ABDOMEN: Abdomen is relatively flat, soft, minimally distended. Midline incision is relatively dry with leland intact. No drainage or bleeding. Right lower quadrant ileostomy remains moderately swollen but functioning. Original appliance still remains in place without any leakage. Left lower quadrant drain has light pink serosanguineous fluid. EXTREMITIES: Extremities have no deformities. No edema identified. Vital Signs Vital Signs Date Time Temp Pulse Resp B/P (MAP) Pulse Ox O2 Delivery O2 Flow Rate FiO2 04/23/19 06:00 98.8 85 16 123/68 (86) 97 04/21/19 13:10 0.5 I&Os I&O- Last 24 Hours up to 6 AM 04/23/19 06:00 Intake Total 4250 ml Output Total 535 ml Balance 3715 ml Laboratory Data Labs 24H Laboratory Tests 2 04/23/19 05:21: Nucleated Red Blood Cells % (auto) 0.0, Anion Gap 7L, Glomerular Filtration Rate > 60.0, Blood Urea Nitrogen 12, Creatinine 0.76, Sodium Level 140, Potassium Level 3.9, Chloride Level 103, Carbon Dioxide Level 30, Calcium Level 8.1L CBC/BMP Laboratory Tests 04/23/19 05:21 Red Blood Count 3.98 L, Mean Corpuscular Volume 85.7, Mean Corpuscular Hemoglobin 28.1, Mean Corpuscular Hemoglobin Concent 32.8, Red Cell Distribution Width 14.0, Calcium Level 8.1 L Microbiology Microbiology 04/19/19 Anaerobic Culture - Final, Complete 04/19/19 Gram Stain - Final, Complete 04/19/19 Abscess Culture - Final, Complete Impression Crohn's disease Small bowel obstruction postop day 4 exploratory laparotomy, small bowel resection with ileostomy He continues to do well and is having a good amount of output from his ileostomy. He has a good appetite and is tolerating oral diet. Ileostomy output this mildly decreased with the Metamucil. Main complaint today is that of back pains. He is denying any discomfort abdominally, anteriorly. He is doing the emptying of the ileostomy bag by himself but has not changed the ileostomy appliance yet. I reviewed his medication treatment is not on any treatment for the Crohn's disease this point. Presumably the involved areas of the Crohn's disease has all been resected. I think it'll be worthwhile to ask gastroenterology if he needs to be on some maintenance medications for the Crohn's disease. He continues on Zosyn. The lead some muscle relaxant to aid with his back pain. I also placed him on Dulcolax suppository every other day to deal with the long colon stump. Plan / VTE VTE Prophylaxis Ordered?: Yes NIKKO BENNETT MD Apr 23, 2019 14:05
[2019-04-23] MEDS: CYCLOBENZAPRINE 10 MG TAB PO SCH ×2 (14:20→21:58)
[2019-04-23] MEDS: BISACODYL 10 MG SUPP PR SCH (14:21)
[2019-04-23] MEDS: KETOROLAC 30 MG/ML VIAL (J1885) IV PRN ×2 (15:34→21:59)
--- NOTE | 2019-04-23 17:11 | IPNPDOC ---
Text Note Date of Service The patient was seen on 04/23/19. NOTE S; pateint had complains of scrotal swelling to nursing staff. Patient has been ambulating in halls. He had recieved toradol and flexeril prior to evaluation and was too sleepy, awakened to voice and stated no complaints, then fell back to sleep. Scrotal exam not performed until patient is more alert/awake O: Vitals as below General: sleepy, awakens to name HRRR LCTA Abdomen: leland intact; right ostomy draining A/P: S/P small bowel resection after crohns flare with SBO d/c percocet, change toradol to prn D/C morphine. continue with ostomy training videos and arranging for [facility] care [facility] ostomy. [facility] not be released to prison until leland out per staff [facility] to arrange follow up with GI in [place] (patient preference) upon release from prison in 4-6 weeks. VS,[place]gobone, I+O VS, Fishbone, I+O Laboratory Tests 04/23/19 05:21 Red Blood Count 3.98 L, Mean Corpuscular Volume 85.7, Mean Corpuscular Hemoglobin 28.1, Mean Corpuscular Hemoglobin Concent 32.8, Red Cell Distribution Width 14.0, Calcium Level 8.1 L Vital Signs Date Time Temp Pulse Resp B/P (MAP) Pulse Ox O2 Delivery O2 Flow Rate FiO2 04/23/19 06:00 98.8 85 16 123/68 (86) 97 04/21/19 13:10 0.5 I&O- Last 24 Hours up to 6 AM 04/23/19 06:00 Intake Total 4250 ml Output Total 535 ml Balance 3715 ml MANNY PATTERSON DO Apr 23, 2019 11:34
[2019-04-23] MEDS: SODIUM CHLORIDE 0.9% INJ 10 ML SYR IV SCH (17:48)
[2019-04-23] MEDS: ENOXAPARIN 40 MG/0.4 ML SYRINGE (J1650) SC SCH (17:48)
[2019-04-24] MEDS: PIPERACILLIN/TAZOBACTAM SOD 4.5 GM in D5W MINI-BAG PLUS 50 ML IV SCH ×3 (00:18→16:11)
[2019-04-24] MEDS: SIMETHICONE 80 MG CHEW TAB PO PRN (00:54)
[2019-04-24] MEDS: KETOROLAC 30 MG/ML VIAL (J1885) IV PRN ×2 (04:11→10:16)
[2019-04-24] MEDS: ACETAMINOPHEN 500 MG TAB PO SCH ×3 (05:47→22:14)
[2019-04-24] MEDS: SODIUM CHLORIDE 0.9% INJ 10 ML SYR IV SCH ×2 (05:47→17:19)
[2019-04-24 06:00] VITALS: BP 123/60
[2019-04-24 07:58] LABS: BLOOD UREA NITROGEN 10 MG/DL (7-18); CALCIUM LEVEL 8.5 MG/DL (8.5-10.1); CARBON DIOXIDE LEVEL 26 MEQ/L (21-32); CHLORIDE LEVEL 107 MEQ/L (98-107); CREATININE FOR GFR 0.74 MG/DL (0.70-1.30); GLOMERULAR FILTRATION RATE > 60.0 (>60); GLUCOSE, FASTING 132 MG/DL (70-100); POTASSIUM SERUM 3.9 MEQ/L (3.5-5.1); SODIUM LEVEL 140 MEQ/L (136-145)
[2019-04-24 08:12] LABS: HEMATOCRIT 33.1 % (42.0-52.0); HEMOGLOBIN 10.8 g/dl (13.5-17.5); MEAN CORPUSCULAR HEMOGLOBIN 27.9 pg (27.0-33.0); MEAN CORPUSCULAR HGB CONC 32.6 g/dl (32.0-36.5); MEAN CORPUSCULAR VOLUME 85.5 fl (80.0-96.0); PLATELET COUNT, AUTOMATED 327 10^3/uL (150-450); RED BLOOD COUNT 3.87 10^6/uL (4.30-6.10); WHITE BLOOD COUNT 12.4 10^3/uL (4.0-10.0)
[2019-04-24] MEDS: METAMUCIL (PSYLLIUM) PACKET PO SCH ×2 (08:53→21:15)
[2019-04-24] MEDS: CYCLOBENZAPRINE 10 MG TAB PO SCH ×2 (08:53→21:16)
--- NOTE | 2019-04-24 09:57 | IPNPDOC ---
Subjective General Date/Time Seen The patient was seen on 04/24/19 at 09:54. Subject Chief Complaint/History The patient is a 33-year-old male admitted with a reason for visit of Crohns Disease Of Small Intestine,Small Bowel Obst. No overnight events. Patient reports low back pain and abdominal pain. He has been independently taking care of draining his ileostomy bag. His narcotics is being weaned off. Current Medications Current Medications Current Medications Medications (Trade) Dose Ordered Sig/Roger Route PRN Reason Start Time Stop Time Status Last Admin Dose Admin Acetaminophen (Tylenol Suspension) 1,000 mg Q12HP PRN PO PAIN OR FEVER 04/17/19 11:45 04/18/19 07:18 DC 04/18/19 01:03 Acetaminophen (Tylenol Tab) 1,000 mg Q8H PO 04/22/19 22:00 04/24/19 05:47 Acetaminophen 1000 mg/IV Miscellaneous Supplies 100 ml @ 400 mls/hr BIDP PRN IV PAIN 04/18/19 11:45 04/18/19 12:46 DC Acetaminophen 1000 mg/IV Miscellaneous Supplies 100 ml @ 400 mls/hr Q12HP PRN IV Pain, Fever 04/17/19 11:15 04/17/19 11:32 DC Amino Ac/Electrol/ Dextrose/Calcium 2,000 ml @ 75 mls/hr ONCE@1800 IV 04/19/19 18:00 04/20/19 17:59 DC 04/19/19 21:46 Amino Ac/Electrol/ Dextrose/Calcium 2,000 ml @ 75 mls/hr ONCE@1800 IV 04/20/19 18:00 04/21/19 17:59 DC 04/20/19 17:58 Amino Ac/Electrol/ Dextrose/Calcium 2,000 ml @ 75 mls/hr ONCE@1800 IV 04/17/19 18:00 04/17/19 18:00 DC Bisacodyl (Dulcolax Suppository) 10 mg Q48H [place] 04/23/19 09:00 04/23/19 14:21 Cyclobenzaprine HCl (Flexeril) 10 mg BID PO 04/23/19 09:00 04/24/19 08:53 Dextrose/Sodium Chloride 1,000 ml @ 100 mls/hr Q10H IV 04/09/19 15:15 04/16/19 07:59 DC 04/16/19 05:47 Enoxaparin Sodium (Lovenox) 40 mg DAILY@1800 SC 04/09/19 18:00 04/23/19 17:48 Fat Emulsion Intravenous 500 ml @ 20 mls/hr ONCE@1800 IV 04/19/19 18:00 04/20/19 17:59 DC 04/19/19 21:46 Fat Emulsion Intravenous 500 ml @ 20 mls/hr ONCE@1800 IV 04/20/19 18:00 04/21/19 17:59 DC 04/20/19 17:58 Fat Emulsion Intravenous 500 ml @ 20 mls/hr ONCE@1800 IV 04/21/19 18:00 04/22/19 17:59 DC 04/21/19 17:32 Fat Emulsion Intravenous 500 ml @ 20 mls/hr ONCE@1800 IV 04/17/19 18:00 04/17/19 18:00 DC Fat Emulsion Intravenous 500 ml @ 20 mls/hr ONCE@1800 IV 04/18/19 18:00 04/19/19 17:59 DC 04/18/19 18:17 Fentanyl Citrate (Sublimaze) 25 mcg Q5MP PRN IV MODERATE PAIN (PS 4-7) 04/19/19 20:30 04/19/19 21:30 DC Heparin Sodium (Heparin (Flush)) 200 units ASDIRECTED PRN IV SEE LABEL COMMENTS 04/18/19 17:15 Heparin Sodium (Heparin (Flush)) 200 units PICC IV 04/18/19 18:00 04/24/19 05:47 Home Med (Med Rec Complete!) ASDIRECTED XX 04/09/19 15:15 04/09/19 15:15 DC Hydromorphone HCl (Dilaudid) 0.4 mg Q5MP PRN IV MODERATE/SEVERE PAIN (PS 5-10) 04/19/19 20:30 04/19/19 21:30 DC Hydromorphone HCl (Dilaudid) 1 mg Q3HP PRN IV MILD PAIN (PS 1-4) 04/18/19 12:00 04/21/19 11:47 DC 04/21/19 10:34 Hydromorphone HCl (Dilaudid) 1 mg Q6HP PRN IV SEVERE PAIN (PS 8-10) 04/21/19 12:00 04/22/19 18:20 DC 04/22/19 09:55 Hydromorphone HCl (Dilaudid) 1.6 mg Q3HP PRN IV MODERATE/SEVERE PAIN (PS 5-10) 04/18/19 12:00 04/20/19 11:13 DC 04/19/19 14:47 Insulin Human Lispro (HumaLOG INSULIN) See Protocol Table Q6H [place] 04/19/19 18:00 04/20/19 12:01 DC 04/20/19 12:08 Insulin Human Lispro (HumaLOG INSULIN) See Protocol Table Q6H [place] 04/20/19 18:00 04/21/19 12:01 DC 04/21/19 12:24 Insulin Human Lispro (HumaLOG INSULIN) See Protocol Table Q6H [place] 04/21/19 18:00 04/22/19 12:01 DC 04/22/19 13:20 Insulin Human Lispro (HumaLOG INSULIN) See Protocol Table Q6H [place] 04/17/19 18:00 04/17/19 18:00 DC Insulin Human Lispro (HumaLOG INSULIN) See Protocol Table Q6H [place] 04/18/19 18:00 04/19/19 12:01 DC 04/19/19 11:42 Ketorolac Tromethamine (ToRADol) 30 mg Q6H IV 04/19/19 20:00 04/23/19 11:34 DC 04/23/19 08:03 Ketorolac Tromethamine (ToRADol) 30 mg Q6H PRN IV pain not relieved with tylenol 04/23/19 11:45 04/24/19 20:00 04/24/19 04:11 Ketorolac Tromethamine (ToRADol) 30 mg Q6HP IV 04/17/19 23:00 04/17/19 23:00 DC Ketorolac Tromethamine (ToRADol) 30 mg Q6HP PRN IV PAIN 04/17/19 23:00 04/18/19 07:18 DC 04/18/19 05:12 Lactated Ringer's 1,000 ml @ 100 mls/hr Q10H IV 04/19/19 20:30 04/19/19 21:30 DC Methylprednisolone (SOLU medrol) 40 mg Q8H IV 04/16/19 15:00 04/17/19 11:11 DC 04/17/19 05:38 Methylprednisolone (SOLUmedrol) 80 mg Q8H IV 04/09/19 23:00 04/16/19 07:59 DC 04/16/19 06:23 Miscellaneous (Unresolved Clarification Entry) SEE LABEL COMMENTS DAILY XX 04/20/19 09:00 04/20/19 11:17 DC Morphine Sulfate (Morphine Sulfate Inj) 2 mg Q2HP PRN IV BREAKTHROUGH PAIN 04/21/19 08:15 04/22/19 14:56 DC 04/22/19 05:51 Morphine Sulfate (Morphine Sulfate Inj) 2 mg Q4HP PRN IV PAIN 04/09/19 15:15 04/10/19 00:51 DC 04/09/19 21:43 Morphine Sulfate (Morphine Sulfate Inj) 4 mg Q2HP PRN IV SEVERE PAIN (PS 8-10) 04/17/19 23:30 04/18/19 11:56 DC 04/18/19 11:02 Morphine Sulfate (Morphine Sulfate Inj) 4 mg Q4HP PRN IV SEVERE PAIN (PS 8-10) 04/10/19 01:00 04/17/19 23:26 DC 04/17/19 21:03 Morphine Sulfate (Morphine Sulfate Inj) 4 mg STAT STAT IV 04/10/19 00:47 04/10/19 00:49 DC 04/10/19 00:56 Multivitamins 10 ml/Chromium/ Copper/Manganese/ Seleni/Zn 1 ml/ Amino Ac/Electrol/ Dextrose/Calcium 2,011 ml @ 75 mls/hr ONCE@1800 IV 04/18/19 18:00 04/19/19 17:59 DC 04/18/19 18:16 Multivitamins 10 ml/Chromium/ Copper/Manganese/ Seleni/Zn 1 ml/ Potassium Chloride 40 meq/ Amino Ac/Electrol/ Dextrose/Calcium 2,031 ml @ 75 mls/hr ONCE@1800 IV 04/21/19 18:00 04/22/19 17:59 DC 04/21/19 17:31 Ondansetron HCl (ZOFRAN INJection) 4 mg Q4HP PRN IV NAUSEA OR VOMITING 04/19/19 20:30 04/19/19 21:30 DC Ondansetron HCl (ZOFRAN INJection) 8 mg Q6HP PRN IV NAUSEA OR VOMITING 04/09/19 15:15 04/23/19 08:10 Oxycodone/ Acetaminophen (Percocet 5mg/ 325mg Tablet) 1 tab Q4HP PRN PO MILD/MODERATE PAIN (PS 1-7) 04/21/19 11:45 Cancel Oxycodone/ Acetaminophen (Percocet 5mg/ 325mg Tablet) 1 tab Q8HP PRN PO MILD/MODERATE PAIN (PS 1-7) 04/22/19 21:45 04/23/19 11:34 DC 04/23/19 03:42 Oxycodone/ Acetaminophen (Percocet 5mg/ 325mg Tablet) 2 tab Q4HP PRN PO SEVERE PAIN (PS 8-10) 04/21/19 11:45 04/22/19 21:46 DC 04/22/19 16:29 Phenol (Chloraseptic [place]) 1 spray Q2HP PRN MT SORE THROAT 04/18/19 10:15 04/18/19 20:43 Piperacillin Sod/ Tazobactam Sod 4.5 gm/Dextrose 50 ml @ 50 mls/hr Q8H IV 04/10/19 16:00 04/24/19 08:53 Polyethylene Glycol (Miralax) 1 pkt BID PO 04/15/19 09:00 04/19/19 19:40 DC 04/17/19 09:10 Prednisone (Deltasone) 40 mg DAILY NG 04/18/19 09:00 04/18/19 09:00 DC Psyllium Hydrophilic Mucilloid (Metamucil) 1 pkt BID PO 04/22/19 09:00 04/24/19 08:53 Simethicone (Mylicon) 120 mg TIDP PRN PO GAS PAIN 04/18/19 10:15 04/24/19 00:54 Sodium Chloride 1,000 ml @ 100 mls/hr Q10H IV 04/17/19 18:15 04/21/19 11:47 DC 04/21/19 08:45 Sodium Chloride (Saline Lock Flush) 10 ML PICC IV 04/18/19 18:00 04/24/19 05:47 Sodium Chloride (Saline Lock Flush) 10ML ASDIRECTED PRN IV SEE LABEL COMMENTS 04/18/19 17:15 Allergies Coded Allergies: No Known Allergies (Unverified , 02/24/19) Objective Physical Examination Examination GENERAL APPEARANCE: Relatively comfortable. SKIN: Warm and moist. HEENT: Normocephalic, atraumatic. [place] palpebral conjunctiva, anicteric sclerae. Lips and mucosa appear moist. NECK: Supple, no thyromegaly. No obvious jugular venous distention. LUNGS: Clear to auscultation bilaterally. No wheezing appreciated. HEART: No chest wall abnormalities. Regular rate and rhythm with no murmurs appreciated. ABDOMEN: Abdomen is relatively flat, soft, minimally distended. Midline incision is clean, dry and intact without any bleeding or drainage. No surrounding skin erythema. Left lower quadrant drain is light pink serosanguineous. Ileostomy is functioning with improving swelling of the ileostomy stump. EXTREMITIES: Extremities have no deformities. No edema identified. Vital Signs Vital Signs Date Time Temp Pulse Resp B/P (MAP) Pulse Ox O2 Delivery O2 Flow Rate FiO2 04/24/19 06:00 98.6 86 16 123/60 (81) 97 04/21/19 13:10 0.5 I&Os I&O- Last 24 Hours up to 6 AM 04/24/19 06:00 Intake Total 2010 ml Output Total 1630 ml Balance 380 ml Laboratory Data Labs 24H Laboratory Tests 2 04/24/19 05:26: Nucleated Red Blood Cells % (auto) 0.0, Anion Gap 7L, Glomerular Filtration Rate > 60.0, Blood Urea Nitrogen 10, Creatinine 0.74, Sodium Level 140, Potassium Level 3.9, Chloride Level 107, Carbon Dioxide Level 26, Calcium Level 8.5 CBC/BMP Laboratory Tests 04/24/19 05:26 Red Blood Count 3.87 L, Mean Corpuscular Volume 85.5, Mean Corpuscular Hemoglobin 27.9, Mean Corpuscular Hemoglobin Concent 32.6, Red Cell Distribution Width 13.9, Calcium Level 8.5 Microbiology Microbiology 04/19/19 Anaerobic Culture - Final, Complete 04/19/19 Gram Stain - Final, Complete 04/19/19 Abscess Culture - Final, Complete Impression Crohn's disease Small bowel obstruction postop day 5 exploratory laparotomy, small bowel resection with ileostomy He continues to do well and is having a good amount of output from his ileostomy. He has a good appetite and is tolerating oral diet. Ileostomy output this mildly decreased with the Metamucil. We may be weaning the narcotics to aggressively on him especially in light of the fact that he had been getting large amounts last week. I'll switch him back to Percocets and switched the Toradol to naproxen and scheduled dose and see how he does with that. Continue with the Flexeril. I reviewed his medication treatment is not on any treatment for the Crohn's disease this point. Presumably the involved areas of the Crohn's disease has all been resected. I think it'll be worthwhile to ask gastroenterology if he needs to be on some maintenance medications for the Crohn's disease. He continues on Zosyn. The lead some muscle relaxant to aid with his back pain. earliest leland can come out will be on pod10 - next week I also placed him on Dulcolax suppository every other day to deal with the long colon stump. Plan / VTE VTE Prophylaxis Ordered?: Yes NIKKO BENNETT MD Apr 24, 2019 09:57
[2019-04-24] MEDS: ONDANSETRON 4MG/2ML VIAL (J2405) IV PRN (11:18)
[2019-04-24 14:00] VITALS: BP 119/82
[2019-04-24] MEDS: PERCOCET 5MG/325MG TAB PO PRN ×2 (16:11→21:16)
[2019-04-24] MEDS: ENOXAPARIN 40 MG/0.4 ML SYRINGE (J1650) SC SCH (17:19)
--- NOTE | 2019-04-24 18:41 | IPNPDOC ---
Text Note Date of Service The patient was seen on 04/24/19. NOTE S: patient states increased nausea with fatty food intact (ie sausage this AM at breakfast) and with walking in halls today. no vomiting. no abdomen pain O: Vitals as below General: pleasant, NAD AAOx3 HRRR LCTA Abdomen: right ostomy draining, ADDY drain intact; surgical incision with leland - no erythema and good skin approximation A/P: S/P small bowel resection (POD 5) after crohns flare with SBO - pain management per surgery. continue with ostomy training videos and arranging for long-term [facility] care of ostomy, supplies, etc. Can not be released to long-term until leland out per staff (per surgery note - possible earliest day is POD 10 04/29/19) GI field technical support consultant not available/out of town. [facility]irement to arrange follow up with GI in [place] (patient preference) upon release f rom long-term in 4-6 weeks. VS,Fishbone, I+O VS, Fishbone, I+O Laboratory Tests 04/24/19 05:26 Red Blood Count 3.87 L, Mean Corpuscular Volume 85.5, Mean Corpuscular Hemoglobin 27.9, Mean Corpuscular Hemoglobin Concent 32.6, Red Cell Distribution Width 13.9, Calcium Level 8.5 Vital Signs Date Time Temp Pulse Resp B/P (MAP) Pulse Ox O2 Delivery O2 Flow Rate FiO2 04/24/19 16:41 18 04/24/19 14:00 98.2 74 119/82 (94) 98 04/21/19 13:10 0.5 I&O- Last 24 Hours up to 6 AM 04/24/19 06:00 Intake Total 2010 ml Output Total 1630 ml Balance 380 ml MANNY PATTERSON DO Apr 24, 2019 18:41
[2019-04-24] MEDS: NAPROXEN 250 MG TAB PO SCH (21:16)
[2019-04-25] MEDS: PIPERACILLIN/TAZOBACTAM SOD 4.5 GM in D5W MINI-BAG PLUS 50 ML IV SCH ×2 (01:01→08:52)
[2019-04-25] MEDS: PERCOCET 5MG/325MG TAB PO PRN ×4 (01:29→18:58)
[2019-04-25] MEDS: SODIUM CHLORIDE 0.9% INJ 10 ML SYR IV SCH ×2 (06:07→18:59)
[2019-04-25 06:30] VITALS: BP 122/65
[2019-04-25 07:10] LABS: HEMATOCRIT 32.7 % (42.0-52.0); HEMOGLOBIN 10.7 g/dl (13.5-17.5); MEAN CORPUSCULAR HEMOGLOBIN 27.8 pg (27.0-33.0); MEAN CORPUSCULAR HGB CONC 32.7 g/dl (32.0-36.5); MEAN CORPUSCULAR VOLUME 84.9 fl (80.0-96.0); PLATELET COUNT, AUTOMATED 331 10^3/uL (150-450); RED BLOOD COUNT 3.85 10^6/uL (4.30-6.10); WHITE BLOOD COUNT 12.8 10^3/uL (4.0-10.0)
[2019-04-25 07:30] LABS: BLOOD UREA NITROGEN 11 MG/DL (7-18); CALCIUM LEVEL 8.3 MG/DL (8.5-10.1); CARBON DIOXIDE LEVEL 25 MEQ/L (21-32); CHLORIDE LEVEL 107 MEQ/L (98-107); CREATININE FOR GFR 0.69 MG/DL (0.70-1.30); GLOMERULAR FILTRATION RATE > 60.0 (>60); GLUCOSE, FASTING 91 MG/DL (70-100); POTASSIUM SERUM 3.9 MEQ/L (3.5-5.1); SODIUM LEVEL 139 MEQ/L (136-145)
[2019-04-25] MEDS: ACETAMINOPHEN 500 MG TAB PO SCH ×3 (07:40→21:58)
[2019-04-25] MEDS: CYCLOBENZAPRINE 10 MG TAB PO SCH ×2 (08:50→20:20)
[2019-04-25] MEDS: NAPROXEN 250 MG TAB PO SCH ×2 (08:51→20:21)
[2019-04-25] MEDS: METAMUCIL (PSYLLIUM) PACKET PO SCH ×2 (08:51→20:22)
[2019-04-25] MEDS: BISACODYL 10 MG SUPP PR SCH (08:52)
--- NOTE | 2019-04-25 10:33 | IPNPDOC ---
Subjective General Date/Time Seen The patient was seen on 04/25/19 at 10:28. Subject Chief Complaint/History The patient is a 33-year-old male admitted with a reason for visit of Crohns Disease Of Small Intestine,Small Bowel Obst. Patient reports he's more comfortable with the narcotic pain medications back. He is ambulating to the hallways. Otherwise he continues to progress accordingly postoperatively. Current Medications Current Medications Current Medications Medications (Trade) Dose Ordered Sig/Roger Route PRN Reason Start Time Stop Time Status Last Admin Dose Admin Acetaminophen (Tylenol Suspension) 1,000 mg Q12HP PRN PO PAIN OR FEVER 04/17/19 11:45 04/18/19 07:18 DC 04/18/19 01:03 Acetaminophen (Tylenol Tab) 1,000 mg Q8H PO 04/22/19 22:00 04/25/19 07:40 Acetaminophen 1000 mg/IV Miscellaneous Supplies 100 ml @ 400 mls/hr BIDP PRN IV PAIN 04/18/19 11:45 04/18/19 12:46 DC Acetaminophen 1000 mg/IV Miscellaneous Supplies 100 ml @ 400 mls/hr Q12HP PRN IV Pain, Fever 04/17/19 11:15 04/17/19 11:32 DC Amino Ac/Electrol/ Dextrose/Calcium 2,000 ml @ 75 mls/hr ONCE@1800 IV 04/19/19 18:00 04/20/19 17:59 DC 04/19/19 21:46 Amino Ac/Electrol/ Dextrose/Calcium 2,000 ml @ 75 mls/hr ONCE@1800 IV 04/20/19 18:00 04/21/19 17:59 DC 04/20/19 17:58 Amino Ac/Electrol/ Dextrose/Calcium 2,000 ml @ 75 mls/hr ONCE@1800 IV 04/17/19 18:00 04/17/19 18:00 DC Bisacodyl (Dulcolax Suppository) 10 mg Q48H [place] 04/23/19 09:00 04/25/19 08:52 Cyclobenzaprine HCl (Flexeril) 10 mg BID PO 04/23/19 09:00 04/25/19 08:50 Dextrose/Sodium Chloride 1,000 ml @ 100 mls/hr Q10H IV 04/09/19 15:15 04/16/19 07:59 DC 04/16/19 05:47 Enoxaparin Sodium (Lovenox) 40 mg DAILY@1800 SC 04/09/19 18:00 04/24/19 17:19 Fat Emulsion Intravenous 500 ml @ 20 mls/hr ONCE@1800 IV 04/19/19 18:00 04/20/19 17:59 DC 04/19/19 21:46 Fat Emulsion Intravenous 500 ml @ 20 mls/hr ONCE@1800 IV 04/20/19 18:00 04/21/19 17:59 DC 04/20/19 17:58 Fat Emulsion Intravenous 500 ml @ 20 mls/hr ONCE@1800 IV 04/21/19 18:00 04/22/19 17:59 DC 04/21/19 17:32 Fat Emulsion Intravenous 500 ml @ 20 mls/hr ONCE@1800 IV 04/17/19 18:00 04/17/19 18:00 DC Fat Emulsion Intravenous 500 ml @ 20 mls/hr ONCE@1800 IV 04/18/19 18:00 04/19/19 17:59 DC 04/18/19 18:17 Fentanyl Citrate (Sublimaze) 25 mcg Q5MP PRN IV MODERATE PAIN (PS 4-7) 04/19/19 20:30 04/19/19 21:30 DC Heparin Sodium (Heparin (Flush)) 200 units ASDIRECTED PRN IV SEE LABEL COMMENTS 04/18/19 17:15 Heparin Sodium (Heparin (Flush)) 200 units PICC IV 04/18/19 18:00 04/25/19 06:07 Home Med (Med Rec Complete!) ASDIRECTED XX 04/09/19 15:15 04/09/19 15:15 DC Hydromorphone HCl (Dilaudid) 0.4 mg Q5MP PRN IV MODERATE/SEVERE PAIN (PS 5-10) 04/19/19 20:30 04/19/19 21:30 DC Hydromorphone HCl (Dilaudid) 1 mg Q3HP PRN IV MILD PAIN (PS 1-4) 04/18/19 12:00 04/21/19 11:47 DC 04/21/19 10:34 Hydromorphone HCl (Dilaudid) 1 mg Q6HP PRN IV SEVERE PAIN (PS 8-10) 04/21/19 12:00 04/22/19 18:20 DC 04/22/19 09:55 Hydromorphone HCl (Dilaudid) 1.6 mg Q3HP PRN IV MODERATE/SEVERE PAIN (PS 5-10) 04/18/19 12:00 04/20/19 11:13 DC 04/19/19 14:47 Insulin Human Lispro (HumaLOG INSULIN) See Protocol Table Q6H [place] 04/19/19 18:00 04/20/19 12:01 DC 04/20/19 12:08 Insulin Human Lispro (HumaLOG INSULIN) See Protocol Table Q6H [place] 04/20/19 18:00 04/21/19 12:01 DC 04/21/19 12:24 Insulin Human Lispro (HumaLOG INSULIN) See Protocol Table Q6H [place] 04/21/19 18:00 04/22/19 12:01 DC 04/22/19 13:20 Insulin Human Lispro (HumaLOG INSULIN) See Protocol Table Q6H [place] 04/17/19 18:00 04/17/19 18:00 DC Insulin Human Lispro (HumaLOG INSULIN) See Protocol Table Q6H [place] 04/18/19 18:00 04/19/19 12:01 DC 04/19/19 11:42 Ketorolac Tromethamine (ToRADol) 30 mg Q6H IV 04/19/19 20:00 04/23/19 11:34 DC 04/23/19 08:03 Ketorolac Tromethamine (ToRADol) 30 mg Q6H PRN IV pain not relieved with tylenol 04/23/19 11:45 04/24/19 14:08 DC 04/24/19 10:16 Ketorolac Tromethamine (ToRADol) 30 mg Q6HP IV 04/17/19 23:00 04/17/19 23:00 DC Ketorolac Tromethamine (ToRADol) 30 mg Q6HP PRN IV PAIN 04/17/19 23:00 04/18/19 07:18 DC 04/18/19 05:12 Lactated Ringer's 1,000 ml @ 100 mls/hr Q10H IV 04/19/19 20:30 04/19/19 21:30 DC Methylprednisolone (SOLU medrol) 40 mg Q8H IV 04/16/19 15:00 04/17/19 11:11 DC 04/17/19 05:38 Methylprednisolone (SOLUmedrol) 80 mg Q8H IV 04/09/19 23:00 04/16/19 07:59 DC 04/16/19 06:23 Miscellaneous (Unresolved Clarification Entry) SEE LABEL COMMENTS DAILY XX 04/20/19 09:00 04/20/19 11:17 DC Morphine Sulfate (Morphine Sulfate Inj) 2 mg Q2HP PRN IV BREAKTHROUGH PAIN 04/21/19 08:15 04/22/19 14:56 DC 04/22/19 05:51 Morphine Sulfate (Morphine Sulfate Inj) 2 mg Q4HP PRN IV PAIN 04/09/19 15:15 04/10/19 00:51 DC 04/09/19 21:43 Morphine Sulfate (Morphine Sulfate Inj) 4 mg Q2HP PRN IV SEVERE PAIN (PS 8-10) 04/17/19 23:30 04/18/19 11:56 DC 04/18/19 11:02 Morphine Sulfate (Morphine Sulfate Inj) 4 mg Q4HP PRN IV SEVERE PAIN (PS 8-10) 04/10/19 01:00 04/17/19 23:26 DC 04/17/19 21:03 Morphine Sulfate (Morphine Sulfate Inj) 4 mg STAT STAT IV 04/10/19 00:47 04/10/19 00:49 DC 04/10/19 00:56 Multivitamins 10 ml/Chromium/ Copper/Manganese/ Seleni/Zn 1 ml/ Amino Ac/Electrol/ Dextrose/Calcium 2,011 ml @ 75 mls/hr ONCE@1800 IV 04/18/19 18:00 04/19/19 17:59 DC 04/18/19 18:16 Multivitamins 10 ml/Chromium/ Copper/Manganese/ Seleni/Zn 1 ml/ Potassium Chloride 40 meq/ Amino Ac/Electrol/ Dextrose/Calcium 2,031 ml @ 75 mls/hr ONCE@1800 IV 04/21/19 18:00 04/22/19 17:59 DC 04/21/19 17:31 Naproxen (Naprosyn) 500 mg BID PO 04/24/19 21:00 04/25/19 08:51 Ondansetron HCl (ZOFRAN INJection) 4 mg Q4HP PRN IV NAUSEA OR VOMITING 04/19/19 20:30 04/19/19 21:30 DC Ondansetron HCl (ZOFRAN INJection) 8 mg Q6HP PRN IV NAUSEA OR VOMITING 04/09/19 15:15 04/24/19 11:18 Oxycodone/ Acetaminophen (Percocet 5mg/ 325mg Tablet) 1 tab Q4HP PRN PO MILD/MODERATE PAIN (PS 1-7) 04/21/19 11:45 Cancel Oxycodone/ Acetaminophen (Percocet 5mg/ 325mg Tablet) 1 tab Q4HP PRN PO MILD/MODERATE PAIN (PS 1-7) 04/24/19 14:15 04/25/19 01:29 Oxycodone/ Acetaminophen (Percocet 5mg/ 325mg Tablet) 1 tab Q8HP PRN PO MILD/MODERATE PAIN (PS 1-7) 04/22/19 21:45 04/23/19 11:34 DC 04/23/19 03:42 Oxycodone/ Acetaminophen (Percocet 5mg/ 325mg Tablet) 2 tab Q4HP PRN PO SEVERE PAIN (PS 8-10) 04/21/19 11:45 04/22/19 21:46 DC 04/22/19 16:29 Oxycodone/ Acetaminophen (Percocet 5mg/ 325mg Tablet) 2 tab Q6HP PRN PO SEVERE PAIN (PS 8-10) 04/24/19 14:15 04/25/19 06:07 Phenol (Chloraseptic [place]) 1 spray Q2HP PRN MT SORE THROAT 04/18/19 10:15 04/18/19 20:43 Piperacillin Sod/ Tazobactam Sod 4.5 gm/Dextrose 50 ml @ 50 mls/hr Q8H IV 04/10/19 16:00 04/25/19 08:52 Polyethylene Glycol (Miralax) 1 pkt BID PO 04/15/19 09:00 04/19/19 19:40 DC 04/17/19 09:10 Prednisone (Deltasone) 40 mg DAILY NG 04/18/19 09:00 04/18/19 09:00 DC Psyllium Hydrophilic Mucilloid (Metamucil) 1 pkt BID PO 04/22/19 09:00 04/25/19 08:51 Simethicone (Mylicon) 120 mg TIDP PRN PO GAS PAIN 04/18/19 10:15 04/24/19 00:54 Sodium Chloride 1,000 ml @ 100 mls/hr Q10H IV 04/17/19 18:15 04/21/19 11:47 DC 04/21/19 08:45 Sodium Chloride (Saline Lock Flush) 10 ML PICC IV 04/18/19 18:00 04/25/19 06:07 Sodium Chloride (Saline Lock Flush) 10ML ASDIRECTED PRN IV SEE LABEL COMMENTS 04/18/19 17:15 Allergies Coded Allergies: No Known Allergies (Unverified , 02/24/19) Objective Physical Examination Examination GENERAL APPEARANCE: Looks very comfortable. SKIN: Warm and moist. HEENT: Normocephalic, atraumatic. [place] palpebral conjunctiva, anicteric scle imelda. Lips and mucosa appear moist. NECK: Supple, no thyromegaly. No obvious jugular venous distention. LUNGS: Clear to auscultation bilaterally. No wheezing appreciated. HEART: No chest wall abnormalities. Regular rate and rhythm with no murmurs appreciated. ABDOMEN: Abdomen is relatively flat, nondistended, soft, midline incision is clean, dry and intact, no drainage. Left-sided ADDY drain mostly serous EXTREMITIES: Extremities have no deformities. No edema identified. Vital Signs Vital Signs Date Time Temp Pulse Resp B/P (MAP) Pulse Ox O2 Delivery O2 Flow Rate FiO2 04/25/19 07:42 16 04/25/19 06:30 98.6 82 122/65 (84) 98 04/21/19 13:10 0.5 I&Os I&O- Last 24 Hours up to 6 AM 04/25/19 06:00 Intake Total 2650 ml Output Total 1040 ml Balance 1610 ml Laboratory Data Labs 24H Laboratory Tests 2 04/25/19 00:24: Bedside Glucose (Misc Panel) 108H 04/25/19 06:39: Nucleated Red Blood Cells % (auto) 0.0, Anion Gap 7L, Glomerular Filtration Rate > 60.0, Blood Urea Nitrogen 11, Creatinine 0.69L, Sodium Level 139, Potassium Level 3.9, Chloride Level 107, Carbon Dioxide Level 25, Calcium Level 8.3L CBC/BMP Laboratory Tests 04/25/19 06:39 Red Blood Count 3.85 L, Mean Corpuscular Volume 84.9, Mean Corpuscular Hemoglobin 27.8, Mean Corpuscular Hemoglobin Concent 32.7, Red Cell Distribution Width 13.8, Calcium Level 8.3 L Microbiology Microbiology 04/19/19 Anaerobic Culture - Final, Complete 04/19/19 Gram Stain - Final, Complete 04/19/19 Abscess Culture - Final, Complete Impression Crohn's disease Small bowel obstruction postop day 6 exploratory laparotomy, small bowel resection with ileostomy He continues to do well and is having a good amount of output from his ileostomy. He has a good appetite and is tolerating oral diet. Ileostomy output this mildly decreased with the Metamucil. I have asked his nurse to go through ostomy appliance change with him. D/C ADDY drain. More comfortable with prn Percocets and scheduled naproxen. Continue with the Flexeril. I reviewed his medication treatment is not on any treatment for the Crohn's disease this point. Presumably the involved areas of the Crohn's disease has all been resected. I think it'll be worthwhile to ask gastroenterology if he needs to be on some maintenance medications for the Crohn's disease. He continues on Zosyn. Peritoneal fluid cultures show no growth. will switch to PO abx for another 7 days. then d/c earliest leland can come out will be on pod10 - next week I also placed him on Dulcolax suppository every other day to deal with the long colon stump. Plan / VTE VTE Prophylaxis Ordered?: Yes NIKKO BENNETT MD Apr 25, 2019 10:33
[2019-04-25 14:00] VITALS: BP 110/68
[2019-04-25] MEDS: metroNIDAZOLE (FLAGYL) 500 MG TAB PO SCH ×2 (14:28→21:58)
[2019-04-25] MEDS: CIPROFLOXACIN 500 MG TAB PO SCH (18:57)
[2019-04-25] MEDS: ENOXAPARIN 40 MG/0.4 ML SYRINGE (J1650) SC SCH (18:59)
--- NOTE | 2019-04-25 19:19 | IPNPDOC ---
Text Note Date of Service The patient was seen on 04/25/19 at 0900 NOTE S: patient states pain controlled. he is learning about caring for ostomy. He wants to know when he can start crohns disease treatment O:Vitals as below General: pleasant NAD AAOx3 HRRR LCTA A/P: S/P small bowel resection (POD 6) after crohns flare with SBO - pain management per surgery. continue with ostomy training videos and arranging for [facility] care of ostomy, supplies, etc. Don out in approx 10 days - to be assessed and removed by surgery. [facility] to arrange follow up with GI in [place] (patient preference) upon release from [facility] in 4-6 weeks. Hepatitis C - Patient will need treatment of hepatitis C - FIRST before starting treatment for crohns VS,Fishbone, I+O VS, Fishbone, I+O Laboratory Tests 04/25/19 06:39 Red Blood Count 3.85 L, Mean Corpuscular Volume 84.9, Mean Corpuscular Hemoglobin 27.8, Mean Corpuscular Hemoglobin Concent 32.7, Red Cell Distribution Width 13.8, Calcium Level 8.3 L Vital Signs Date Time Temp Pulse Resp B/P (MAP) Pulse Ox O2 Delivery O2 Flow Rate FiO2 04/25/19 18:58 16 04/25/19 14:00 98.1 78 110/68 (82) 99 04/21/19 13:10 0.5 I&O- Last 24 Hours up to 6 AM 04/25/19 05:59 Intake Total 2590 ml Output Total 1040 ml Balance 1550 ml MANNY PATTERSON DO Apr 25, 2019 19:19
[2019-04-25 22:00] VITALS: BP 113/65
[2019-04-26] MEDS: PERCOCET 5MG/325MG TAB PO PRN ×4 (00:13→22:43)
[2019-04-26] MEDS: CIPROFLOXACIN 500 MG TAB PO SCH ×2 (05:54→17:42)
[2019-04-26] MEDS: metroNIDAZOLE (FLAGYL) 500 MG TAB PO SCH ×3 (05:54→21:01)
[2019-04-26] MEDS: ACETAMINOPHEN 500 MG TAB PO SCH ×4 (05:54→23:54)
[2019-04-26] MEDS: SODIUM CHLORIDE 0.9% INJ 10 ML SYR IV SCH ×2 (05:55→17:41)
[2019-04-26 06:00] VITALS: BP 100/59
[2019-04-26 06:50] LABS: HEMATOCRIT 31.2 % (42.0-52.0); HEMOGLOBIN 10.2 g/dl (13.5-17.5); MEAN CORPUSCULAR HEMOGLOBIN 26.9 pg (27.0-33.0); MEAN CORPUSCULAR HGB CONC 32.7 g/dl (32.0-36.5); MEAN CORPUSCULAR VOLUME 82.3 fl (80.0-96.0); PLATELET COUNT, AUTOMATED 348 10^3/uL (150-450); RED BLOOD COUNT 3.79 10^6/uL (4.30-6.10); WHITE BLOOD COUNT 10.9 10^3/uL (4.0-10.0)
[2019-04-26 07:14] LABS: BLOOD UREA NITROGEN 14 MG/DL (7-18); CALCIUM LEVEL 8.2 MG/DL (8.5-10.1); CARBON DIOXIDE LEVEL 23 MEQ/L (21-32); CHLORIDE LEVEL 108 MEQ/L (98-107); CREATININE FOR GFR 0.67 MG/DL (0.70-1.30); GLOMERULAR FILTRATION RATE > 60.0 (>60); GLUCOSE, FASTING 104 MG/DL (70-100); POTASSIUM SERUM 4.1 MEQ/L (3.5-5.1); SODIUM LEVEL 139 MEQ/L (136-145)
--- NOTE | 2019-04-26 08:48 | IPNPDOC ---
Text Note Date of Service The patient was seen on 04/26/19. NOTE No acute events overnight. He is tolerating diet, and emptying his own ostomy. Pain is controlled. VSSAF NAD abd - soft, non distended, tender to palpation appropriate, ostomy with succus in the bag labs - see below A) 33y/o male with hep C and a crohns exacerbation resulting in distal SBO that is not resolving s/p resection with end ileostomy P) ambulate reg diet pain control plan on d/c after [place] are removed Diallo Castro DO VS,Fishbone, I+O VS, Fishbone, I+O Laboratory Tests 04/26/19 06:36 Red Blood Count 3.79 L, Mean Corpuscular Volume 82.3, Mean Corpuscular Hemoglobin 26.9 L, Mean Corpuscular Hemoglobin Concent 32.7, Red Cell Distribution Width 13.6, Calcium Level 8.2 L Vital Signs Date Time Temp Pulse Resp B/P (MAP) Pulse Ox O2 Delivery O2 Flow Rate FiO2 04/26/19 07:23 16 04/26/19 06:00 98.3 81 100/59 (73) 98 04/21/19 13:10 0.5 I&O- Last 24 Hours up to 6 AM 04/26/19 06:00 Intake Total 2940 ml Output Total 0 ml Balance 2940 ml JORGE CASTRO DO Apr 26, 2019 08:48
[2019-04-26] MEDS: CYCLOBENZAPRINE 10 MG TAB PO SCH ×2 (08:52→21:01)
[2019-04-26] MEDS: NAPROXEN 250 MG TAB PO SCH ×2 (08:52→21:01)
[2019-04-26] MEDS: METAMUCIL (PSYLLIUM) PACKET PO SCH ×2 (08:52→21:02)
[2019-04-26 14:00] VITALS: BP 97/60
[2019-04-26] MEDS: ENOXAPARIN 40 MG/0.4 ML SYRINGE (J1650) SC SCH (17:42)
--- NOTE | 2019-04-26 19:17 | IPNPDOC ---
Text Note Date of Service The patient was seen on 04/26/19. NOTE S: patient states pain controlled. patient ADDY drain removed and he states ba ndage fell off area (small 8mm opening healing by secondary intent). O:Vitals as below General: pleasant NAD AAOx3 HRRR LCTA A/P: S/P small bowel resection (POD 6) after crohns flare with SBO - pain management per surgery. continue with ostomy training and arranging [facility], supplies, etc. Don out in approx 10 days - to be assessed and removed by surgery. Assisted to arrange follow up with GI in [place] (patient preference) upon release from residential in 4-6 weeks. Hepatitis C - Patient will need treatment of hepatitis C - FIRST before starting treatment for crohns VS,Fishbone, I+O VS, Fishbone, I+O Laboratory Tests 04/26/19 06:36 Red Blood Count 3.79 L, Mean Corpuscular Volume 82.3, Mean Corpuscular Hemoglobin 26.9 L, Mean Corpuscular Hemoglobin Concent 32.7, Red Cell Distribution Width 13.6, Calcium Level 8.2 L Vital Signs Date Time Temp Pulse Resp B/P (MAP) Pulse Ox O2 Delivery O2 Flow Rate FiO2 04/26/19 18:45 16 04/26/19 14:00 97.6 89 97/60 (72) 96 04/21/19 13:10 0.5 I&O- Last 24 Hours up to 6 AM 04/26/19 05:59 Intake Total 2700 ml Output Total 0 ml Balance 2700 ml MANNY PATTERSON DO Apr 26, 2019 19:17
[2019-04-26 22:00] VITALS: BP 106/73
[2019-04-27] MEDS: PERCOCET 5MG/325MG TAB PO PRN ×3 (04:42→18:50)
[2019-04-27 06:00] VITALS: BP 112/63
[2019-04-27] MEDS: metroNIDAZOLE (FLAGYL) 500 MG TAB PO SCH ×3 (06:41→21:46)
[2019-04-27] MEDS: CIPROFLOXACIN 500 MG TAB PO SCH ×2 (06:41→18:19)
[2019-04-27] MEDS: ACETAMINOPHEN 500 MG TAB PO SCH ×3 (06:41→21:46)
[2019-04-27] MEDS: SODIUM CHLORIDE 0.9% INJ 10 ML SYR IV SCH ×2 (06:42→18:20)
[2019-04-27 06:58] LABS: HEMATOCRIT 33.2 % (42.0-52.0); HEMOGLOBIN 10.9 g/dl (13.5-17.5); MEAN CORPUSCULAR HEMOGLOBIN 27.5 pg (27.0-33.0); MEAN CORPUSCULAR HGB CONC 32.8 g/dl (32.0-36.5); MEAN CORPUSCULAR VOLUME 83.6 fl (80.0-96.0); PLATELET COUNT, AUTOMATED 407 10^3/uL (150-450); RED BLOOD COUNT 3.97 10^6/uL (4.30-6.10); WHITE BLOOD COUNT 10.2 10^3/uL (4.0-10.0)
[2019-04-27 07:25] LABS: BLOOD UREA NITROGEN 16 MG/DL (7-18); CALCIUM LEVEL 8.2 MG/DL (8.5-10.1); CARBON DIOXIDE LEVEL 23 MEQ/L (21-32); CHLORIDE LEVEL 108 MEQ/L (98-107); GLOMERULAR FILTRATION RATE > 60.0 (>60); GLUCOSE, FASTING 105 MG/DL (70-100); POTASSIUM SERUM 4.3 MEQ/L (3.5-5.1); SODIUM LEVEL 138 MEQ/L (136-145)
[2019-04-27] MEDS: CYCLOBENZAPRINE 10 MG TAB PO SCH ×2 (09:27→21:46)
[2019-04-27] MEDS: NAPROXEN 250 MG TAB PO SCH ×2 (09:27→21:45)
[2019-04-27] MEDS: METAMUCIL (PSYLLIUM) PACKET PO SCH ×2 (09:28→21:44)
[2019-04-27] MEDS: BISACODYL 10 MG SUPP PR SCH (09:28)
--- NOTE | 2019-04-27 11:43 | IPNPDOC ---
Text Note Date of Service The patient was seen on 04/27/19. NOTE No acute events overnight. He is tolerating diet, and emptying his own ostomy. Pain is controlled. VSSAF NAD abd - soft, non distended, tender to palpation appropriate, ostomy with succus in the bag labs - see below A) 33y/o male with hep C and a crohns exacerbation resulting in distal SBO that is not resolving s/p resection with end ileostomy P) ambulate reg diet pain control plan on d/c after leland are removed within the next couple days. Diallo Castro DO VS,Kimberlyn, I+O VS, Kimberlyn, I+O Laboratory Tests 04/27/19 06:42 Red Blood Count 3.97 L, Mean Corpuscular Volume 83.6, Mean Corpuscular Hemoglobin 27.5, Mean Corpuscular Hemoglobin Concent 32.8, Red Cell Distribution Width 13.6, Calcium Level 8.2 L Vital Signs Date Time Temp Pulse Resp B/P (MAP) Pulse Ox O2 Delivery O2 Flow Rate FiO2 04/27/19 06:00 16 04/27/19 06:00 98.2 86 112/63 (79) 99 04/21/19 13:10 0.5 I&O- Last 24 Hours up to 6 AM 04/27/19 06:00 Intake Total 1310 ml Balance 1310 ml JORGE CASTRO DO Apr 27, 2019 11:43
[2019-04-27 14:00] VITALS: BP 109/64
--- NOTE | 2019-04-27 17:44 | IPNPDOC ---
Text Note Date of Service The patient was seen on 04/27/19. NOTE S: patient concerned because wafer adhesive is not fully attached to skin. He is worried about getting skin irritation from bowel. He is picking at adhesive on wafer during exam. no abdomen pain, no SOB, no CP O: Vitals as below HRRR LCTA Abdomen: soft NT ND NABS, right colostomy intact, adhesive to wafer is sufficient. (advised patient not to pick at adhesive seal) no signs of leakage. A/P: S/P small bowel resection (POD 8) after crohns flare with SBO - pain management per surgery. s/p Ex Lap Lysis of Adhesions, Small Bowel Resection with Ileostomy on 04/[address] Aguilera of Gen Surg continue with ostomy training and arranging for [facility] care of ostomy, supplies, etc. Don out in approx 10 days - to be assessed and removed by surgery. [facility] to arrange follow up with GI in [place] (patient preference) upon release from [facility] in 4-6 weeks. Hepatitis C - Patient will need treatment of hepatitis C - FIRST before starting treatment for crohns Disposition: possible discharge sunday if supplies available and teach completed. VS,Fishbone, I+O VS, Fishbone, I+O Laboratory Tests 04/27/19 06:42 Red Blood Count 3.97 L, Mean Corpuscular Volume 83.6, Mean Corpuscular Hemoglobin 27.5, Mean Corpuscular Hemoglobin Concent 32.8, Red Cell Distribution Width 13.6, Calcium Level 8.2 L Vital Signs Date Time Temp Pulse Resp B/P (MAP) Pulse Ox O2 Delivery O2 Flow Rate FiO2 04/27/19 13:17 18 04/27/19 06:00 98.2 86 112/63 (79) 99 04/21/19 13:10 0.5 I&O- Last 24 Hours up to 6 AM 04/27/19 06:00 Intake Total 1310 ml Balance 1310 ml MANNY PATTERSON DO Apr 27, 2019 17:44
[2019-04-27] MEDS: ENOXAPARIN 40 MG/0.4 ML SYRINGE (J1650) SC SCH (18:19)
[2019-04-27 22:00] VITALS: BP 113/68
[2019-04-28] MEDS: PERCOCET 5MG/325MG TAB PO PRN ×2 (01:09→08:21)
[2019-04-28] MEDS: metroNIDAZOLE (FLAGYL) 500 MG TAB PO SCH (05:50)
[2019-04-28] MEDS: CIPROFLOXACIN 500 MG TAB PO SCH (05:50)
[2019-04-28] MEDS: ACETAMINOPHEN 500 MG TAB PO SCH (05:51)
[2019-04-28] MEDS: SODIUM CHLORIDE 0.9% INJ 10 ML SYR IV SCH (05:53)
[2019-04-28 06:00] VITALS: BP 110/69
--- NOTE | 2019-04-28 09:49 | IPNPDOC ---
Subjective General Date/Time Seen The patient was seen on 04/28/19 at 09:47. Subject Chief Complaint/History The patient is a 33-year-old male admitted with a reason for visit of Crohns Disease Of Small Intestine,Small Bowel Obst. Current Medications Current Medications Current Medications Medications (Trade) Dose Ordered Sig/Roger Route PRN Reason Start Time Stop Time Status Last Admin Dose Admin Acetaminophen (Tylenol Suspension) 1,000 mg Q12HP PRN PO PAIN OR FEVER 04/17/19 11:45 04/18/19 07:18 DC 04/18/19 01:03 Acetaminophen (Tylenol Tab) 1,000 mg Q8H PO 04/22/19 22:00 04/28/19 05:51 Acetaminophen 1000 mg/IV Miscellaneous Supplies 100 ml @ 400 mls/hr BIDP PRN IV PAIN 04/18/19 11:45 04/18/19 12:46 DC Acetaminophen 1000 mg/IV Miscellaneous Supplies 100 ml @ 400 mls/hr Q12HP PRN IV Pain, Fever 04/17/19 11:15 04/17/19 11:32 DC Amino Ac/Electrol/ Dextrose/Calcium 2,000 ml @ 75 mls/hr ONCE@1800 IV 04/19/19 18:00 04/20/19 17:59 DC 04/19/19 21:46 Amino Ac/Electrol/ Dextrose/Calcium 2,000 ml @ 75 mls/hr ONCE@1800 IV 04/20/19 18:00 04/21/19 17:59 DC 04/20/19 17:58 Amino Ac/Electrol/ Dextrose/Calcium 2,000 ml @ 75 mls/hr ONCE@1800 IV 04/17/19 18:00 04/17/19 18:00 DC Bisacodyl (Dulcolax Suppository) 10 mg Q48H SD 04/23/19 09:00 04/27/19 09:28 Ciprofloxacin (Cipro) 500 mg BID@06,18 PO 04/25/19 18:00 05/02/19 17:59 04/28/19 05:50 Cyclobenzaprine HCl (Flexeril) 10 mg BID PO 04/23/19 09:00 04/27/19 21:46 Dextrose/Sodium Chloride 1,000 ml @ 100 mls/hr Q10H IV 04/09/19 15:15 04/16/19 07:59 DC 04/16/19 05:47 Enoxaparin Sodium (Lovenox) 40 mg DAILY@1800 SC 04/09/19 18:00 04/27/19 18:19 Fat Emulsion Intravenous 500 ml @ 20 mls/hr ONCE@1800 IV 04/19/19 18:00 04/20/19 17:59 DC 04/19/19 21:46 Fat Emulsion Intravenous 500 ml @ 20 mls/hr ONCE@1800 IV 04/20/19 18:00 04/21/19 17:59 DC 04/20/19 17:58 Fat Emulsion Intravenous 500 ml @ 20 mls/hr ONCE@1800 IV 04/21/19 18:00 04/22/19 17:59 DC 04/21/19 17:32 Fat Emulsion Intravenous 500 ml @ 20 mls/hr ONCE@1800 IV 04/17/19 18:00 04/17/19 18:00 DC Fat Emulsion Intravenous 500 ml @ 20 mls/hr ONCE@1800 IV 04/18/19 18:00 04/19/19 17:59 DC 04/18/19 18:17 Fentanyl Citrate (Sublimaze) 25 mcg Q5MP PRN IV MODERATE PAIN (PS 4-7) 04/19/19 20:30 04/19/19 21:30 DC Heparin Sodium (Heparin (Flush)) 200 units ASDIRECTED PRN IV SEE LABEL COMMENTS 04/18/19 17:15 Heparin Sodium (Heparin (Flush)) 200 units PICC IV 04/18/19 18:00 04/28/19 05:53 Home Med (Med Rec Complete!) ASDIRECTED XX 04/09/19 15:15 04/09/19 15:15 DC Hydromorphone HCl (Dilaudid) 0.4 mg Q5MP PRN IV MODERATE/SEVERE PAIN (PS 5-10) 04/19/19 20:30 04/19/19 21:30 DC Hydromorphone HCl (Dilaudid) 1 mg Q3HP PRN IV MILD PAIN (PS 1-4) 04/18/19 12:00 04/21/19 11:47 DC 04/21/19 10:34 Hydromorphone HCl (Dilaudid) 1 mg Q6HP PRN IV SEVERE PAIN (PS 8-10) 04/21/19 12:00 04/22/19 18:20 DC 04/22/19 09:55 Hydromorphone HCl (Dilaudid) 1.6 mg Q3HP PRN IV MODERATE/SEVERE PAIN (PS 5-10) 04/18/19 12:00 04/20/19 11:13 DC 04/19/19 14:47 Insulin Human Lispro (HumaLOG INSULIN) See Protocol Table Q6H AL 04/19/19 18:00 04/20/19 12:01 DC 04/20/19 12:08 Insulin Human Lispro (HumaLOG INSULIN) See Protocol Table Q6H AL 04/20/19 18:00 04/21/19 12:01 DC 04/21/19 12:24 Insulin Human Lispro (HumaLOG INSULIN) See Protocol Table Q6H AL 04/21/19 18:00 04/22/19 12:01 DC 04/22/19 13:20 Insulin Human Lispro (HumaLOG INSULIN) See Protocol Table Q6H AL 04/17/19 18:00 04/17/19 18:00 DC Insulin Human Lispro (HumaLOG INSULIN) See Protocol Table Q6H AL 04/18/19 18:00 04/19/19 12:01 DC 04/19/19 11:42 Ketorolac Tromethamine (ToRADol) 30 mg Q6H IV 04/19/19 20:00 04/23/19 11:34 DC 04/23/19 08:03 Ketorolac Tromethamine (ToRADol) 30 mg Q6H PRN IV pain not relieved with tylenol 04/23/19 11:45 04/24/19 14:08 DC 04/24/19 10:16 Ketorolac Tromethamine (ToRADol) 30 mg Q6HP IV 04/17/19 23:00 04/17/19 23:00 DC Ketorolac Tromethamine (ToRADol) 30 mg Q6HP PRN IV PAIN 04/17/19 23:00 04/18/19 07:18 DC 04/18/19 05:12 Lactated Ringer's 1,000 ml @ 100 mls/hr Q10H IV 04/19/19 20:30 04/19/19 21:30 DC Methylprednisolone (SOLU medrol) 40 mg Q8H IV 04/16/19 15:00 04/17/19 11:11 DC 04/17/19 05:38 Methylprednisolone (SOLUmedrol) 80 mg Q8H IV 04/09/19 23:00 04/16/19 07:59 DC 04/16/19 06:23 Metronidazole (Flagyl) 500 mg Q8H PO 04/25/19 14:00 05/02/19 13:59 04/28/19 05:50 Miscellaneous (Unresolved Clarification Entry) SEE LABEL COMMENTS DAILY XX 04/20/19 09:00 04/20/19 11:17 DC Morphine Sulfate (Morphine Sulfate Inj) 2 mg Q2HP PRN IV BREAKTHROUGH PAIN 04/21/19 08:15 04/22/19 14:56 DC 04/22/19 05:51 Morphine Sulfate (Morphine Sulfate Inj) 2 mg Q4HP PRN IV PAIN 04/09/19 15:15 04/10/19 00:51 DC 04/09/19 21:43 Morphine Sulfate (Morphine Sulfate Inj) 4 mg Q2HP PRN IV SEVERE PAIN (PS 8-10) 04/17/19 23:30 04/18/19 11:56 DC 04/18/19 11:02 Morphine Sulfate (Morphine Sulfate Inj) 4 mg Q4HP PRN IV SEVERE PAIN (PS 8-10) 04/10/19 01:00 04/17/19 23:26 DC 04/17/19 21:03 Morphine Sulfate (Morphine Sulfate Inj) 4 mg STAT STAT IV 04/10/19 00:47 04/10/19 00:49 DC 04/10/19 00:56 Multivitamins 10 ml/Chromium/ Copper/Manganese/ Seleni/Zn 1 ml/ Amino Ac/Electrol/ Dextrose/Calcium 2,011 ml @ 75 mls/hr ONCE@1800 IV 04/18/19 18:00 04/19/19 17:59 DC 04/18/19 18:16 Multivitamins 10 ml/Chromium/ Copper/Manganese/ Seleni/Zn 1 ml/ Potassium Chloride 40 meq/ Amino Ac/Electrol/ Dextrose/Calcium 2,031 ml @ 75 mls/hr ONCE@1800 IV 04/21/19 18:00 04/22/19 17:59 DC 04/21/19 17:31 Naproxen (Naprosyn) 500 mg BID PO 04/24/19 21:00 04/27/19 21:45 Ondansetron HCl (ZOFRAN INJection) 4 mg Q4HP PRN IV NAUSEA OR VOMITING 04/19/19 20:30 04/19/19 21:30 DC Ondansetron HCl (ZOFRAN INJection) 8 mg Q6HP PRN IV NAUSEA OR VOMITING 04/09/19 15:15 04/24/19 11:18 Oxycodone/ Acetaminophen (Percocet 5mg/ 325mg Tablet) 1 tab Q4HP PRN PO MILD/MODERATE PAIN (PS 1-7) 04/21/19 11:45 Cancel Oxycodone/ Acetaminophen (Percocet 5mg/ 325mg Tablet) 1 tab Q4HP PRN PO MILD/MODERATE PAIN (PS 1-7) 04/24/19 14:15 04/26/19 22:43 Oxycodone/ Acetaminophen (Percocet 5mg/ 325mg Tablet) 1 tab Q8HP PRN PO MILD/MODERATE PAIN (PS 1-7) 04/22/19 21:45 04/23/19 11:34 DC 04/23/19 03:42 Oxycodone/ Acetaminophen (Percocet 5mg/ 325mg Tablet) 2 tab Q4HP PRN PO SEVERE PAIN (PS 8-10) 04/21/19 11:45 04/22/19 21:46 DC 04/22/19 16:29 Oxycodone/ Acetaminophen (Percocet 5mg/ 325mg Tablet) 2 tab Q6HP PRN PO SEVERE PAIN (PS 8-10) 04/24/19 14:15 04/28/19 08:21 Phenol (Chloraseptic [place]) 1 spray Q2HP PRN MT SORE THROAT 04/18/19 10:15 04/18/19 20:43 Piperacillin Sod/ Tazobactam Sod 4.5 gm/Dextrose 50 ml @ 50 mls/hr Q8H IV 04/10/19 16:00 04/25/19 11:33 DC 04/25/19 08:52 Polyethylene Glycol (Miralax) 1 pkt BID PO 04/15/19 09:00 04/19/19 19:40 DC 04/17/19 09:10 Prednisone (Deltasone) 40 mg DAILY NG 04/18/19 09:00 04/18/19 09:00 DC Psyllium Hydrophilic Mucilloid (Metamucil) 1 pkt BID PO 04/22/19 09:00 04/27/19 21:44 Simethicone (Mylicon) 120 mg TIDP PRN PO GAS PAIN 04/18/19 10:15 04/24/19 00:54 Sodium Chloride 1,000 ml @ 100 mls/hr Q10H IV 04/17/19 18:15 04/21/19 11:47 DC 04/21/19 08:45 Sodium Chloride (Saline Lock Flush) 10 ML PICC IV 04/18/19 18:00 04/28/19 05:53 Sodium Chloride (Saline Lock Flush) 10ML ASDIRECTED PRN IV SEE LABEL COMMENTS 04/18/19 17:15 Allergies Coded Allergies: No Known Allergies (Unverified , 02/24/19) Objective Physical Examination Examination GENERAL APPEARANCE:[Patient seen, laying in bed, awake, alert, and oriented. Comfortable, in no acute distress]. SKIN: [Warm and moist]. HEENT: [Normocephalic, atraumatic. [place] palpebral conjunctiva, anicteric sclerae. Lips and mucosa appear moist]. NECK: [Supple, no thyromegaly. No obvious jugular venous distention]. LUNGS: [Clear to auscultation bilaterally. No wheezing appreciated]. HEART: [No chest wall abnormalities. Regular rate and rhythm with no murmurs appreciated]. ABDOMEN: Abdomen is , soft, . [No hepatosplenomegaly. No umbilical or groin herniations, nondistended. No noticeable rebound or guarding. No grimacing with palpation. No rebound tenderness. No masses appreciated]. EXTREMITIES: [Extremities have no deformities. No edema identified]. Vital Signs Vital Signs Date Time Temp Pulse Resp B/P (MAP) Pulse Ox O2 Delivery O2 Flow Rate FiO2 04/28/19 08:21 18 04/28/19 06:00 98.1 85 110/69 (83) 96 I&Os I&O- Last 24 Hours up to 6 AM 04/28/19 06:00 Intake Total 1200 ml Output Total 250 ml Balance 950 ml Laboratory Data Microbiology Microbiology 04/19/19 Anaerobic Culture - Final, Complete 04/19/19 Gram Stain - Final, Complete 04/19/19 Abscess Culture - Final, Complete Impression Crohn's disease Small bowel obstruction postop day 6 exploratory laparotomy, small bowel resection with ileostomy Can d/c leland, replace with steri strips. Can remove steri strips after another week. complete 7 days cipro/flagyl (He is on day 4/7) naproxen bid prn for pain metamucil bid to decrease ileostomy output need to see a anesthesia associate for crohn's disease management ileostomy reversal when crohn's disease fully controlled. Dulcolax supp for long colon stump once weekly. Plan / VTE VTE Prophylaxis Ordered?: Yes NIKKO BENNETT MD Apr 28, 2019 09:49
[2019-04-28] MEDS: METAMUCIL (PSYLLIUM) PACKET PO SCH (10:01)
[2019-04-28] MEDS: NAPROXEN 250 MG TAB PO SCH (10:02)
[2019-04-28] MEDS: CYCLOBENZAPRINE 10 MG TAB PO SCH (10:02)
[2019-04-28] MEDS ORDERED: ACET-683 PO (10:22)
[2019-04-28] MEDS ORDERED: SIME80TA PO (10:22)
[2019-04-28] MEDS ORDERED: META1POW PO (10:22)
[2019-04-28] MEDS ORDERED: NAPR250T4 PO (10:22)
[2019-04-28] MEDS ORDERED: CIPR-249 PO (10:29)
[2019-04-28] MEDS ORDERED: FLAG500T PO (10:29)
--- NOTE | 2019-04-28 20:16 | DS.PDOC ---
Discharge Summary General Date of Admission Apr 09, 2019 at 14:39 Date of Discharge 04/28/19 Attending Physician: MANNY PATTERSON DO Specialist/Consultants Involve: NIKKO BENNETT MD Specialist/Consultants Involve DR ROMERO - GI Discharge Summary PROCEDURES PERFORMED DURING STAY: s/p Ex Lap Lysis of Adhesions, Small Bowel Resection with Ileostomy on 04/[address] Bennett ADMITTING DIAGNOSES: Abdomen pain , SBO due to underlying Crohns with flare Tobacco dependence DISCHARGE DIAGNOSES: SBO Crohns flare Hepatitis C - unknown status Tobacco dependence COMPLICATIONS/CHIEF COMPLAINT: Crohns Disease Of Small Intestine,Small Bowel Obst. HISTORY OF PRESENT ILLNESS: 33 yo male with history of crohns brought in from senior care to ED with abdomen pain. Patient states 3 days of constipation, nausea and progressively worsening abdomen pain similar to prior crohns episode in February 2019. He states no fever, no CP, no SOB. he is a succinct historian and does not offer any additional information except to request pain medications. States worse with lying supine. improved with "pain meds". Review of records show that patient suffers from chronic abdomen pain. patient denies melena or hematochezia. See H&P for details HOSPITAL COURSE: Patient was admitted. conservative management of SBO attempted but failed. He was placed onNGT and steroids. Steroids were tapered off and patient underwent surgerical resection of SBO without complications. His symptoms continued to improve. He was given ostomy training and is being discharged in stable and improved condition. [facility] to arrange follow up with GI in [place] (patient preference) upon release from correction in 4-6 weeks. DISCHARGE MEDICATIONS: Please see below. ALLERGIES: Please see below. PHYSICAL EXAMINATION ON DISCHARGE: VITAL SIGNS: Please see below. GENERAL: AAOX3 NAD HRRR LCTA ABdomen: ileostomy functioning, no skin irritation; staple removed and steri strips placed. good wound approximation without hernia. LABORATORY DATA: Please see below. ACTIVITY: as tolerated DIET: regular DISCHARGE PLAN: discharge back to correction DISCHARGE INSTRUCTIONS: 1.finish cipro/flagyl for 4 more days 2. follow up with GI in 6-8 weeks to discuss treatment of hepatitic C and crohns disease 3. follow up with surgeon in 4-6 months to discuss ileostomy reversal when crohns fully controlled 4. continue metamucil to thick stools in colostomy 5. continue sulfsalazine, no need for steroids at this time. 6. leland removed; can remove steri strips in 1 week DISCHARGE CONDITION: stable TIME SPENT ON DISCHARGE: 30 minutes. Vital Signs/I&Os Vital Signs Date Time Temp Pulse Resp B/P (MAP) Pulse Ox O2 Delivery O2 Flow Rate FiO2 04/28/19 08:51 18 04/28/19 06:00 98.1 85 110/69 (83) 96 I&O- Last 24 Hours up to 6 AM 04/28/19 06:00 Intake Total 1200 ml Output Total 250 ml Balance 950 ml Microbiology Microbiology 04/19/19 Anaerobic Culture - Final, Complete 04/19/19 Gram Stain - Final, Complete 04/19/19 Abscess Culture - Final, Complete Discharge Medications Scheduled Ciprofloxacin HCl (Cipro) 500 Mg Tablet, 500 MG PO BID@ Metronidazole (Flagyl) 500 Mg Tablet, 500 MG PO Q8H Omeprazole (Omeprazole) 40 Mg Capsule.dr, 40 MG PO DAILY, (Reported) Psyllium Husk/Aspartame (Metamucil Fiber Singles Packet) 3.4 Gm Powd.pack, 1 PKT PO BID Sulfasalazine (Sulfasalazine) 500 Mg Tablet, 500 MG PO BID, (Reported) Scheduled PRN Acetaminophen (Acetaminophen) 500 Mg Tablet, 1,000 MG PO Q8H PRN for back pain Bismuth Subsalicylate ([place] Bismuth) 262 Mg/15 Ml Oral.susp, 30 ML PO Q6H PRN for DIARRHEA, (Reported) Ibuprofen (Ibuprofen) 600 Mg Tablet, 600 MG PO BIDP PRN for PAIN, (Reported) Naproxen (Naproxen) 250 Mg Tablet, 500 MG PO BID PRN for INCISIONAL PAIN Simethicone (Simethicone) 80 Mg Tab.chew, 120 MG PO TIDP PRN for GAS PAIN Allergies Coded Allergies: No Known Allergies (Unverified , 02/24/19) MANNY PATTERSON DO Apr 28, 2019 10:31
== END 2019-04-28 13:00 | DRG 221 ==
LOC: M ED 10:43 → M ED INP 14:39 → M MS5PR 20:49
PROVIDERS: ADMIT Family Medicine; ATTEND Family Medicine
PROC: 02HV33Z Insertion of Infusion Device into Superior Vena Cava, Percutaneous Approach (ICD-10-PCS; principal; 2019-04-18 16:00)
PROC: 0DB80ZZ Excision of Small Intestine, Open Approach (ICD-10-PCS; 2019-04-19)
PROC: 0DNU0ZZ Release Omentum, Open Approach (ICD-10-PCS; 2019-04-19)
PROC: 0D1B0Z4 Bypass Ileum to Cutaneous, Open Approach (ICD-10-PCS; 2019-04-19)
DX: K50.012 Crohn's disease of small intestine with intestinal obstruction (principal); R18.8 Other ascites; Z79.899 Other long term (current) drug therapy; B18.2 Chronic viral hepatitis C; F17.200 Nicotine dependence, unspecified, uncomplicated